=== PATIENT | female | born 1990 | race Caucasian/White ===

== ENCOUNTER 2016-07-07 13:09 | Outpatient (CLI) | payer MEDICAID ==
[~2016-07-07] VITALS: Ht 149.9 cm; Wt 69.8 kg
[2016-07-07 13:30] VITALS: Ht 149.9 cm; Wt 69.8 kg
[2016-07-07] MEDS ORDERED: PRENAT PO (13:30)
[2016-07-07] MEDS ORDERED: FER325 PO (13:30)
[2016-07-07] MEDS ORDERED: FOLI-49 PO (13:30)
[2016-07-07 13:31] VITALS: BP 118/60; PULSE 94; RESP 18
--- NOTE | 2016-07-07 14:05 | RADRPT ---
PROCEDURE: US OB. CLINICAL INDICATION: Decreased movements TECHNIQUE: Transabdominal views of the pelvis are available for review. COMPARISON: None. FINDINGS: There is a single intrauterine gestation in a vertex position. The heart rate is present at 146 bpm. The placenta is posterior. There is no evidence of placenta previa or a placental abruption. The MURRAY measures 16.2 cm. RPTAT: AA IMPRESSION: Normal MURRAY of 16.2 cm. Physician Noel Date Time Electronically viewed and signed by Jovan Avila Physician on 07/07/2016 14:05 /
--- NOTE | 2016-07-07 15:14 | RADRPT ---
PROCEDURE: US OB biophysical profile. CLINICAL INDICATION: decreased movements TECHNIQUE: Multiple sonographic images of the pelvis were obtained. The images were reviewed on a PACS workstation. COMPARISON: Same day FINDINGS: There is a single viable intrauterine gestation. Cardiac activity is present with 150 beats per min warren. There is a vertex presentation. The placenta is posterior. There is no evidence of placental abruption. There is a normal amount of amniotic fluid with an MURRAY = 16.3 cm. Biophysical profile: movement 2/2 tone 2/2. breathing 2/2 MURRAY 2/2 Total 01/24 RPTAT: AA . IMPRESSION: Normal biophysical profile. . .Herb Castro MD, MD Date Time Electronically viewed and signed by .Herb Castro MD, MD on 07/07/2016 15:14 .S/
--- NOTE | 2016-07-07 16:54 | TRIAGE ---
OB Triage Datetime Report Generated by CPN: 07/07/2016 16:53 Datetime: 07/07/2016 16:00 Stage of : OB Triage Maternal Assessment Level of Consciousness: Fully Conscious Labor Evaluation Frequency: 1-6 Monitor Mode: External Duration (sec)2399: 60-180 Quality: Mild Resting Tone Fancy Gap: Relaxed Heart Rate FHR Baseline Rate: 135 Monitor Mode: External US Variability: Moderate 6-25 bpm Accelerations: 15X15 Decelerations: None Pain Assessment Pain Scale: 0 Pain Presence: None/Denies Pain Goal: 3 Membrane Status: Intact Vaginal Bleeding: None Datetime: 07/07/2016 15:30 Stage of : OB Triage Maternal Assessment Level of Consciousness: Fully Conscious Labor Evaluation Frequency: 1-6 Monitor Mode: External Duration (sec)2399: 50-120 Quality: Mild Resting Tone Fancy Gap: Relaxed Heart Rate FHR Baseline Rate: 145 Monitor Mode: External US Variability: Moderate 6-25 bpm Accelerations: 15X15 Decelerations: None Pain Assessment Pain Scale: 0 Pain Presence: None/Denies Pain Goal: 3 Membrane Status: Intact Vaginal Bleeding: None Datetime: 07/07/2016 15:00 Stage of : OB Triage Maternal Assessment Level of Consciousness: Fully Conscious Labor Evaluation Frequency: 1-3 Monitor Mode: External Duration (sec)2399: 50-120 Quality: Mild Resting Tone Fancy Gap: Relaxed Heart Rate FHR Baseline Rate: 145 Monitor Mode: External US Variability: Moderate 6-25 bpm Accelerations: 15X15 Decelerations: None Pain Assessment Pain Scale: 0 Pain Presence: None/Denies Pain Goal: 3 Membrane Status: Intact Vaginal Bleeding: None Datetime: 07/07/2016 14:30 Stage of : OB Triage Maternal Assessment Level of Consciousness: Fully Conscious Labor Evaluation Frequency: 1-8 Monitor Mode: External Duration (sec)2399: 50-120 Quality: Mild Resting Tone Fancy Gap: Relaxed Heart Rate FHR Baseline Rate: 145 Monitor Mode: External US Variability: Moderate 6-25 bpm Accelerations: 15X15 Decelerations: None Pain Assessment Pain Scale: 0 Pain Presence: None/Denies Pain Goal: 3 Membrane Status: Intact Vaginal Bleeding: None Datetime: 07/07/2016 14:08 Vaginal Exam Dilatation (cms): 1.0 Effacement (%): 80 Station: -2 Exam By: essie Vaginal Bleeding: None Cervix, Consistency: Soft Cervix, Position: Midposition Presentation 'A': Cephalic Datetime: 07/07/2016 14:00 Stage of : OB Triage Maternal Assessment Level of Consciousness: Fully Conscious Labor Evaluation Frequency: 2-4 Monitor Mode: External Quality: Mild Resting Tone Fancy Gap: Relaxed Heart Rate FHR Baseline Rate: 145 Monitor Mode: External US Variability: Moderate 6-25 bpm Accelerations: 15X15 Decelerations: None Pain Assessment Pain Scale: 0 Pain Presence: None/Denies Pain Goal: 3 Membrane Status: Intact Vaginal Bleeding: None Datetime: 07/07/2016 13:28 Assessment Type: Triage Maternal Assessment Level of Consciousness: Fully Conscious DTR's/Clonus: DTRs 2+; No Clonus Headache: Denies Blurred Vision: No Respiratory Effort: Unlabored; Regular Rhythm; Equal Expansion Breath Sounds, Left: Clear and Equal Breath Sounds, Right: Clear and Equal Nausea/Vomiting: Denies RUQ Epigastric Pain: Denies Lower Extremities Edema: None Degree: None Upper Extremities Edema: None Degree: None Facial Edema: None Fall Risk Assessment History of Falling: (0) No Secondary Diagnosis: (0) No Ambulatory Aid: (0) Bedrest/Nurse Assist IV Therapy: (0) No Gait: (0) Normal/Bedrest/Immobile Mental Status: (0) Oriented to Own Ability Fall Score: 0 Fall Risk Score Definition: No Risk: No action required Datetime: 07/07/2016 13:27 Time of Arrival: 07/07/2016 12:58 EGA: 37.1 Arrived By: Ambulatory Arrived From: Dr. Overton Chief Complaint: pt sent in for eval of DFM Movement: Decreased Contractions: Denies/Absent Rupture of Membranes: Denies Vaginal Bleeding: None Vaginal Discharge: Denies Recent Sexual Intercouse: Denies Abdominal Trauma: Not Applicable Patient Complaints: None Time Provider Notified: 07/07/2016 12:58 Provider Notified: LALITO Initial Plan: NST/BPP/EDDY
== END 2016-07-07 17:00 | disposition home or self-care (01) ==
LOC: OBT 13:09 → L-D 13:10 → OBT 17:00
PROVIDERS: ATTEND Obstetrics & Gynecology
DX: O36.8130 Decreased fetal movements, third trimester, not applicable or unspecified (principal); Z3A.37 37 weeks gestation of pregnancy
CPT/HCPCS: 76815; 76818; G0463

== ENCOUNTER 2016-07-17 17:34 | Emergency (ER) | payer MEDICAID ==
[~2016-07-17] VITALS: Wt 80.0 kg
[~2016-07-17 17:34] MED LIST: FER325 PO; FOLI-49 PO; PRENAT PO
== END 2016-07-17 19:46 | disposition left against medical advice (07) ==
LOC: E/R 17:34
DX: Z53.21 Procedure and treatment not carried out due to patient leaving prior to being seen by health care provider (principal)

== ENCOUNTER 2016-07-17 19:09 | Inpatient (IN) | payer MEDICAID ==
[~2016-07-17] VITALS: Ht 149.9 cm; Wt 66.4 kg
[2016-07-17 19:23] VITALS: BMI 31.2
--- NOTE | 2016-07-17 20:50 | RADRPT ---
PROCEDURE: US OB. CLINICAL INDICATION: labor at 38 weeks. TECHNIQUE: Multiple sonographic images of the uterus were obtained. The images were revi ewed on a PACS workstation. COMPARISON: No prior studies are available for comparison. FINDINGS: There is a single live intrauterine gestation. heart rate is 154 beats per minute. Measurements were made in order to determine age. The results are as follows: BPD = 9.29 cm. HC = 33.70 cm. AC = 39.62 cm. FL = 7.22 cm. Estimated weight is 4283 +/- 642 grams. LMP growth percentile is greater than 97%. Menstrual age by ultrasound dates is 37 weeks 5 days. The estimated date of delivery is 08/02/2016. Position is cephalic and placenta is fundal grade II. There is no evidence for an abruption or place nta previa. IMPRESSION: 1. Single live intrauterine gestation of 37 weeks 5 days menstrual age by ultrasound dates. 2. The estimated date of delivery is 08/02/2016. RPTAT: QQ .Crow Perez MD, Date Time Electronically viewed and signed by .Crow Perez MD, on 07/17/2016 20:50 .R/
--- NOTE | 2016-07-17 20:51 | RADRPT ---
PROCEDURE: US biophysical profile. CLINICAL INDICATION: labor at 38 weeks. TECHNIQUE: Multiple sonographic images of the uterus were obtained. The images were revi ewed on a PACS workstation. COMPARISON: No prior studies are available for comparison. FINDINGS: There is a single live intrauterine gestation. heart rate is 132 beats per minute. The position is cephalic. The placenta is fundal grade II with no abruption or previa. The MURRAY is 14.7 cm. (Normal = 5-20 cm.) Breathing Movement: 2 Gross Body Movement: 2 Tone: 2 Qualitative Amniotic Fluid Volume: 2 TOTAL: 8 IMPRESSION: 1. The biophysical score is 8/8. RPTAT: QQ .Crow Perez MD, MD Date Time Electronically viewed and signed by .Crow Perez MD, on 07/17/2016 20:51 .R/
[2016-07-17 22:00] LABS: BASOPHILS % 0.4 % (0.0-2.0); EOSINOPHILS # 0.1 10^3/ul (0.0-0.5); EOSINOPHILS % 1.4 % (0.0-7.0); HEMATOCRIT 36.4 % (37.0-47.0); HEMOGLOBIN 12.9 g/dl (12.0-16.0); LYMPHOCYTES # 2.1 10^3/ul (0.8-2.9); LYMPHOCYTES % 22.7 % (15.0-51.0); MEAN CORPUSCULAR HEMOGLOBIN 32.3 pg (29.0-33.0); MEAN CORPUSCULAR HGB CONC 35.3 g/dl (32.0-37.0); MEAN CORPUSCULAR VOLUME 91.4 fl (82.0-101.0); MEAN PLATELET VOLUME 8.3 fl (7.4-10.4); MONOCYTE # 0.8 10^3/ul (0.3-0.9); MONOCYTES % 8.1 % (0.0-11.0); NEUTROPHIL # 6.4 10^3/ul (1.6-7.5); NEUTROPHILS % 67.4 % (39.0-77.0); PLATELET COUNT 221 10^3/UL (140-440); RED BLOOD COUNT 3.98 10^6/ul (4.20-5.40); RED CELL DISTRIBUTION WIDTH 13.2 % (11.5-14.5); UNCORRECTED WBC 9.4 10^3/ul (4.8-10.8); WHITE BLOOD COUNT 9.4 10^3/ul (4.8-10.8)
[2016-07-17 22:03] LABS: INR 0.9; PROTIME 12.1 Sec (12.2-14.2); PT RATIO 0.9
[2016-07-17 22:04] LABS: PARTIAL THROMBOPLASTIN TIME 28.5 Sec (25.0-35.0)
[2016-07-17 22:06] LABS: ADD UMIC YES; URINE BILIRUBIN (Dip) NEGATIVE (NEGATIVE); URINE BLOOD (Dip) NEGATIVE (NEGATIVE); URINE COLOR LT. YELLOW (YELLOW); URINE GLUCOSE (Dip) NEGATIVE (NEGATIVE); URINE KETONES (Dip) NEGATIVE (NEGATIVE); URINE LEUKOCYTE ESTERASE (Dip) 1+ (NEGATIVE); URINE NITRITE (Dip) NEGATIVE (NEGATIVE); URINE TOTAL PROTEIN (Dip) NEGATIVE (NEGATIVE); URINE UROBILINOGEN (Dip) 0.2 E.U./dL (0.1-1.0)
[2016-07-17 22:07] LABS: ALBUMIN 3.4 g/dl (3.3-4.9)
[2016-07-17 22:10] LABS: ALBUMIN/GLOBULIN RATIO 1.17; BILIRUBIN,INDIRECT 0.1 mg/dl (0-1.1); BILIRUBIN,TOTAL 0.1 mg/dl (0.2-1.3); CONDITION 1; CREATININE 0.58 mg/dl (0.44-1.00); TOTAL PROTEIN 6.3 g/dl (6.1-8.1)
[2016-07-17 22:11] LABS: CALCIUM 9.4 mg/dl (8.4-10.2); URIC ACID 6.1 mg/dl (3.1-7.9)
[2016-07-17 22:18] LABS: BACTERIA,URINE FEW; SQUAMOUS EPITHELIAL CELL,UR MODERATE; URINE RBCS 0-2 /HPF (0)
[2016-07-17] MEDS ORDERED: OXYTOCIN 30 UNITS/LR 500 ML IV SCH ×2 (23:00)
[2016-07-17] MEDS ORDERED: METHYLERGONOVINE 0.2 MG INJ IM PRN (23:00)
[2016-07-17] MEDS ORDERED: OXYTOCIN 30 UNITS/LR 500 ML IV PRN (23:00)
[2016-07-17] MEDS ORDERED: LIDOCAINE 1% (MPF) 30 ML INJ INJ PRN (23:00)
[2016-07-17] MEDS ORDERED: MISOPROSTOL 200 MCG TAB PR PRN (23:00)
[2016-07-17] MEDS ORDERED: BUTORPHANOL 2 MG INJ IV PRN (23:00)
[2016-07-17] MEDS ORDERED: CARBOPROST 250 MCG INJ IM PRN (23:00)
[2016-07-17] MEDS ORDERED: AMPICILLIN 2 GM/NS (PMX) 100 ML ONE (23:35)
[2016-07-17] MEDS: LACTATED RINGER'S 1,000 ML IV SCH (23:38)
[2016-07-18] VITALS (8 sets, daily range): BP systolic 113–133; BP diastolic 54–77; PULSE 70–100; RESP 18
[2016-07-18] MEDS ORDERED: AMPICILLIN 2 GM/NS (PMX) 100 ML IVPB ONE
[2016-07-18] MEDS: AMPICILLIN 1 GM/NS (PMX) 50 ML IVPB SCH ×2 (04:40→08:41)
[2016-07-18] MEDS ORDERED: OXYTOCIN 30 UNITS/LR 500 ML BAG IV ONE (07:00)
[2016-07-18] MEDS: LACTATED RINGER'S 1,000 ML IV SCH ×3 (08:41→14:53)
[2016-07-18] MEDS ORDERED: LACTATED RINGER'S 1,000 ML IV PRN (10:00)
[2016-07-18] MEDS ORDERED: CEFAZOLIN 2 GM/50 ML (PMX) 50 ML IVPB ONE ×2 (10:06→10:30)
[2016-07-18] MEDS ORDERED: ONDANSETRON 4 MG INJ ONE (10:35)
[2016-07-18] MEDS ORDERED: PHENYLephrine (100 MCG/ML) 5ML SYG ONE (10:35)
[2016-07-18] MEDS ORDERED: morphine SULFATE/PF (10 MG/10 ML) INJ ONE (10:35)
[2016-07-18] MEDS ORDERED: OXYTOCIN 10 UNIT INJ ONE (10:35)
--- NOTE | 2016-07-18 11:12 | PREOPHP ---
DATE OF ADMISSION: 07/17/2016 HISTORY OF PRESENT ILLNESS: This is a 25-year-old 1, para 0, EDC on 01/2017, intrauterine at 38 weeks and 4 days gestational age, presented to triage late last night complaining of numbness in her legs and arms for the past week with decreased movement. She had a biophysical profile which was 8/8. However, she had one episode of elevated blood pressure of 140s/90s with elevated uric acid. She was admitted for observation and a 24- hour urine collection. Recently the heart tracing was in the 170s where delivery was recommended, however, because patient feels the baby is too big for her with an estimated weight of more than 4000 grams the patient desires an elective delivery versus induction. Her care took place in at [facility]. MEDICAL HISTORY: None. MEDICATIONS: vitamins. PAST SURGICAL HISTORY: None. OBSTETRIC HISTORY: Primigravid. GYNECOLOGIC HISTORY: 14, regular 3 to 4 days. Denies any sexually transmitted disease. Sexually active with 1 partner. SOCIAL HISTORY: Denies any smoking, drugs or alcohol. FAMILY HISTORY: None. PHYSICAL EXAMINATION: HEENT: Within normal. LUNGS: CTA bilateral. CARDIOVASCULAR: S1, S2, regular rhythm. ABDOMEN: Gravid, nontender. EXTREMITIES: plus 2 edema in legs, No calf tenderness. PELVIC: Vaginal exam 170 -2. heart tracing in the 170s/category 2. ASSESSMENT: A 25-year-old 1, para 0, intrauterine at 38 weeks and 4 days gestational age with category 2 tracing, desires elective delivery. PLAN: Consent for a primary . Risks, benefits and alternatives explained. All questions were answered. Dictated By: NAVYA YADAV/BEE Conf#: [id number] DID#: [id number] EMMANUELLE
[2016-07-18] MEDS ORDERED: OXYTOCIN 30 UNITS/LR 500 ML IV PRN (11:30)
[2016-07-18] MEDS ORDERED: METHYLERGONOVINE 0.2 MG INJ IM PRN (11:30)
[2016-07-18] MEDS ORDERED: OXYCODONE/ACETAMINOPHEN (5/325) TAB PO PRN (11:30)
[2016-07-18] MEDS ORDERED: CARBOPROST 250 MCG INJ IM PRN (11:30)
[2016-07-18] MEDS ORDERED: MISOPROSTOL 200 MCG TAB PR PRN (11:30)
[2016-07-18 11:36] LABS: CBV Base Excess -0.1 mmol/L; CBV COHb 0.6 %; CBV Total Hemglobin 16.7 g/dl; Cord Blood Venous AADO2 67.5 mmHg; Fraction OxyHgb Cord Venous 33.3 %; MODE ROOM AIR; MetHgb Cord Venous 1.5 %; Sample Type CBV
[2016-07-18 11:37] LABS: AADO2 Cord Arterial 63.8 mmHg; Arterial Cord Blood pCO2 62.6 mmHG (25-50); CBA Base Excess -0.7 mmol/L; CBA Total Hemglobin 15.9 g/dl; Fraction OxyHgb Cord Arterial 13.1 %; MODE ROOM AIR; MetHgb Cord Arterial 1.9 %; Sample Type CBA
[2016-07-18] MEDS: IBUPROFEN 600 MG TAB PO SCH ×2 (12:00→18:00)
[2016-07-18 13:18] LABS: BASOPHILS % 0.3 % (0.0-2.0); EOSINOPHILS # 0.1 10^3/ul (0.0-0.5); EOSINOPHILS % 0.6 % (0.0-7.0); HEMATOCRIT 43.5 % (37.0-47.0); HEMOGLOBIN 15.1 g/dl (12.0-16.0); LYMPHOCYTES % 15.7 % (15.0-51.0); MEAN CORPUSCULAR HEMOGLOBIN 32.6 pg (29.0-33.0); MEAN CORPUSCULAR HGB CONC 34.6 g/dl (32.0-37.0); MEAN CORPUSCULAR VOLUME 94.2 fl (82.0-101.0); MEAN PLATELET VOLUME 8.4 fl (7.4-10.4); MONOCYTE # 0.6 10^3/ul (0.3-0.9); MONOCYTES % 4.9 % (0.0-11.0); NEUTROPHIL # 10.3 10^3/ul (1.6-7.5); NEUTROPHILS % 78.5 % (39.0-77.0); PLATELET COUNT 222 10^3/UL (140-440); RED BLOOD COUNT 4.62 10^6/ul (4.20-5.40); RED CELL DISTRIBUTION WIDTH 13.1 % (11.5-14.5); UNCORRECTED WBC 13.1 10^3/ul (4.8-10.8); WHITE BLOOD COUNT 13.1 10^3/ul (4.8-10.8)
[2016-07-18 13:19] LABS: CONDITION 1
[2016-07-18] MEDS ORDERED: DIPHENHYDRAMINE 50 MG INJ IV PRN (15:30)
[2016-07-18] MEDS ORDERED: ONDANSETRON 4 MG INJ IV PRN (15:30)
[2016-07-18] MEDS ORDERED: morphine 2 MG INJ IV PRN (15:30)
[2016-07-18] MEDS ORDERED: NALOXONE (0.4 MG/ML) INJ IV PRN (15:30)
[2016-07-18] MEDS ORDERED: KETOROLAC 30 MG INJ IV PRN (15:30)
--- NOTE | 2016-07-18 16:18 | OPR ---
DATE OF OPERATION: 07/18/2016 PREOPERATIVE DIAGNOSIS: A 25-year-old 1, para 0, intrauterine at 38 weeks and 5 d ays gestational age with category 2 tracing, desires elective delivery. POSTOPERATIVE DIAGNOSIS: A 25-year-old 1, para 0, intrauterine at 38 weeks and 5 days gestational age with category 2 tracing, desires elective delivery. PROCEDURE: Primary low transverse delivery. SURGEON: NAVYA JACOB MD. CANARY BREEDER: MONIKA RIZO MD. ANESTHESIA: Spinal. COMPLICATIONS OF PROCEDURE: None. ESTIMATED BLOOD LOSS: 500 mL. FINDINGS: A viable male, 8 and 9 respectively at 1 and 5 minutes, weight 8 pounds 15 ounces. She had normal uterus, tubes and ovaries. DESCRIPTION OF PROCEDURE: Patient was taken to the operating room where spinal anesthesia was found to be adequate. She was then prepared and draped in normal sterile fashion in the dorsal supine po sition with a leftward tilt. A Pfannenstiel skin incision was then made with a scalpel and carried to the underlying layer of fascia. Fascia was incised in the midline and the incision was extended laterally with Day scissors. The superior aspect of the fascial incision was grasped with curved c lamps, elevated and the underlying rectus muscles dissected off bluntly. Attention was then turned to the inferior aspect of the incision which in similar fashion was grasped, tented up with curved c lamps and the rectus muscles dissected off bluntly. The rectus muscles were in midline, p eritoneum identified, tented up and entered sharply with Metzenbaum scissors. This incision was ext ended laterally and a bladder flap created digitally. The bladder blade was then inserted and the v esicouterine peritoneum identified, grasped with pickups and entered sharply with Metzenbaum scissor s. This incision was extended laterally and the bladder flap created digitally. The bladder blade was then reinserted and the lower segment incised in transverse fashion with a scalpel. The uterine incision was extended laterally. The bladder blade was removed and the 's head delivered atr aumatically. The nose and mouth were suctioned and cord clamped and cut. The infant was handed off to awaiting vocational trainer. The placenta was then removed. The uterus cleared of all clots and debr is. The uterine incision was repaired with 1-0 chromic in a running locked fashion. A second layer of same suture was used for imbrication obtaining excellent hemostasis. The uterus was returned to the abdomen. The gutters were cleared of all clots. The peritoneum and rectus abdominis muscles w ere reapproximated with 3-0 Vicryl in interrupted fashion. The fascia was reapproximated with 0 Vijay ryl in a running fashion. The skin was closed with lilliam. The patient tolerated procedure well. Sponge, lap and needle counts correct x2. The patient was taken to recovery room in stable conditi on. Dictated By: NAVYA YADAV/BEE Conf#: [id number] DID#: [id number]
[2016-07-18 20:28] LABS: SCRET 0.58 mg/dl (0.44-1.00)
[2016-07-19] VITALS: BP 117/58; PULSE 95; RESP 18
[2016-07-19] MEDS: LACTATED RINGER'S 1,000 ML IV SCH ×3 (00:35→19:25)
[2016-07-19 04:05] VITALS: BP 115/56; PULSE 95; RESP 18
[2016-07-19] MEDS: IBUPROFEN 600 MG TAB PO SCH ×5 (06:00→23:43)
--- NOTE | 2016-07-19 07:17 | QN ---
Documentation Comment patient seen and evaluated no complaints patient reports extremity numbness has improved since the CD vs stable afebrile lungs cta b/l cvs positive S1S2 rrr abdomen dressing clean no distent, nt, extremity +1 pitting edema b/l no calf tenderss a/ s/p primary cd pod 1 stable afebrile extremity numbness improved p/ repeat cbc in am NAVYA JACOB MD Jul 19, 2016 07:17
[2016-07-19 07:30] VITALS: BP 111/53; PULSE 84; RESP 18
[2016-07-19 08:27] LABS: BASOPHILS % 0.2 % (0.0-2.0); EOSINOPHILS # 0.1 10^3/ul (0.0-0.5); EOSINOPHILS % 0.7 % (0.0-7.0); HEMATOCRIT 30.5 % (37.0-47.0); HEMOGLOBIN 10.6 g/dl (12.0-16.0); LYMPHOCYTES # 2.5 10^3/ul (0.8-2.9); LYMPHOCYTES % 22.9 % (15.0-51.0); MEAN CORPUSCULAR HEMOGLOBIN 32.8 pg (29.0-33.0); MEAN CORPUSCULAR HGB CONC 34.7 g/dl (32.0-37.0); MEAN CORPUSCULAR VOLUME 94.8 fl (82.0-101.0); MEAN PLATELET VOLUME 7.7 fl (7.4-10.4); MONOCYTE # 0.8 10^3/ul (0.3-0.9); MONOCYTES % 7.6 % (0.0-11.0); NEUTROPHIL # 7.6 10^3/ul (1.6-7.5); NEUTROPHILS % 68.6 % (39.0-77.0); PLATELET COUNT 178 10^3/UL (140-440); RED BLOOD COUNT 3.22 10^6/ul (4.20-5.40); RED CELL DISTRIBUTION WIDTH 13.1 % (11.5-14.5); UNCORRECTED WBC 11.1 10^3/ul (4.8-10.8); WHITE BLOOD COUNT 11.1 10^3/ul (4.8-10.8)
[2016-07-19 08:50] LABS: CONDITION 1
[2016-07-19 12:00] VITALS: BP 114/67; PULSE 78; RESP 18
[2016-07-19 16:00] VITALS: BP 122/56; PULSE 73; RESP 18
[2016-07-19 20:00] VITALS: BP 105/56; PULSE 87; RESP 20
[2016-07-19] MEDS: OXYCODONE/ACETAMINOPHEN (5/325) TAB PO PRN (20:03)
[2016-07-19] MEDS: FERROUS SULFATE (EC) 325 MG TAB PO SCH (21:25)
[2016-07-20] MEDS: OXYCODONE/ACETAMINOPHEN (5/325) TAB PO PRN ×2 (01:46→08:32)
[2016-07-20] MEDS: LACTATED RINGER'S 1,000 ML IV SCH ×2 (03:25→11:25)
[2016-07-20 04:34] VITALS: BP 110/65; PULSE 77; RESP 20
[2016-07-20] MEDS: IBUPROFEN 600 MG TAB PO SCH ×4 (05:21→23:23)
[2016-07-20 07:30] VITALS: BP 109/60; PULSE 88; RESP 19
[2016-07-20 07:42] LABS: BASOPHILS % 0.4 % (0.0-2.0); EOSINOPHILS # 0.2 10^3/ul (0.0-0.5); EOSINOPHILS % 2.1 % (0.0-7.0); HEMATOCRIT 28.6 % (37.0-47.0); LYMPHOCYTES # 2.8 10^3/ul (0.8-2.9); LYMPHOCYTES % 27.9 % (15.0-51.0); MEAN CORPUSCULAR HEMOGLOBIN 33.2 pg (29.0-33.0); MEAN CORPUSCULAR HGB CONC 34.9 g/dl (32.0-37.0); MEAN PLATELET VOLUME 7.7 fl (7.4-10.4); MONOCYTE # 0.9 10^3/ul (0.3-0.9); MONOCYTES % 8.9 % (0.0-11.0); NEUTROPHILS % 60.7 % (39.0-77.0); PLATELET COUNT 184 10^3/UL (140-440); RED BLOOD COUNT 3.01 10^6/ul (4.20-5.40); RED CELL DISTRIBUTION WIDTH 13.2 % (11.5-14.5)
--- NOTE | 2016-07-20 07:46 | QN ---
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
[2016-07-20 07:47] LABS: CONDITION 1
[2016-07-20] MEDS: FERROUS SULFATE (EC) 325 MG TAB PO SCH ×2 (08:31→21:58)
[2016-07-20 16:00] VITALS: BP 125/73; PULSE 78; RESP 19
[2016-07-20 19:45] VITALS: BP 131/67; PULSE 87; RESP 20
[2016-07-20] MEDS: LANOLIN 7 GM TUBE TOP PRN (23:23)
[2016-07-21 04:05] VITALS: BP 114/56; PULSE 80; RESP 19
[2016-07-21] MEDS: IBUPROFEN 600 MG TAB PO SCH ×3 (05:44→18:02)
[2016-07-21 08:00] VITALS: BP 136/59; PULSE 79; RESP 17
[2016-07-21] MEDS: FERROUS SULFATE (EC) 325 MG TAB PO SCH (08:29)
[2016-07-21 09:19] LABS: BASOPHIL # 0.1 10^3/ul (0.0-0.1); BASOPHILS % 0.5 % (0.0-2.0); EOSINOPHILS # 0.3 10^3/ul (0.0-0.5); EOSINOPHILS % 2.9 % (0.0-7.0); HEMATOCRIT 32.1 % (37.0-47.0); LYMPHOCYTES # 2.4 10^3/ul (0.8-2.9); MEAN CORPUSCULAR HEMOGLOBIN 32.6 pg (29.0-33.0); MEAN CORPUSCULAR HGB CONC 34.3 g/dl (32.0-37.0); MEAN CORPUSCULAR VOLUME 95.1 fl (82.0-101.0); MEAN PLATELET VOLUME 7.7 fl (7.4-10.4); MONOCYTE # 0.7 10^3/ul (0.3-0.9); MONOCYTES % 6.1 % (0.0-11.0); NEUTROPHIL # 7.8 10^3/ul (1.6-7.5); NEUTROPHILS % 69.5 % (39.0-77.0); PLATELET COUNT 247 10^3/UL (140-440); RED BLOOD COUNT 3.38 10^6/ul (4.20-5.40); RED CELL DISTRIBUTION WIDTH 13.1 % (11.5-14.5); UNCORRECTED WBC 11.3 10^3/ul (4.8-10.8); WHITE BLOOD COUNT 11.3 10^3/ul (4.8-10.8)
[2016-07-21 09:33] LABS: CONDITION 1
[2016-07-21 16:00] VITALS: BP 127/68; PULSE 81; RESP 17
--- NOTE | 2016-07-21 19:42 | CONS ---
Date/Time of Note Date/Time of Note DATE: 07/21/16 TIME: 19:39 Assessment Additional comments: Full neurological consult dictated. 3 weeks of worsening numbness and weakness Possible Cervical myelopathy, r/o MS MRI brain, C-T-spine with contrast May recommend to transfer to medical floor - med-surg PATRICIA CAMPO MD Jul 21, 2016 19:42
[2016-07-21 20:00] VITALS: BP 136/78; PULSE 84; RESP 20
--- NOTE | 2016-07-21 20:45 | QN ---
Documentation Comment ttending note POD 3 patient seen and evaluated patient has diffuculty ambulating to bathroom, patient needs assitant patient reports extremity numbness is same as yesterday positive void vs stable afebrile lungs cta b/l cvs positive S1S2 rrr abdomen dressing clean no distent, nt, extremity +1 pitting edema b/l no calf tenderss decrease range in motion in hand/feet a/ s/p primary cd pod 3 stable afebrile no significant change in extremity numbness p/ mri and ct scan per nuerology continue physical therapy NAVYA JACOB MD Jul 21, 2016 20:45
--- NOTE | 2016-07-21 22:17 | CONS ---
DATE OF ADMISSION: 07/17/2016 DATE OF CONSULTATION: 07/21/2016 TYPE OF CONSULTATION: Neurological. Thank you, Dr. Harper, for your kind referral for evaluation of weakness in upper and lower extremities. HISTORY OF PRESENT ILLNESS: The patient is a 25-year-old lady with essentially no past medical history, 38 weeks who delivered the day before yesterday through uneventful . Her is at bedside providing details of the history. She stated that about 3 weeks ago she started noticing pain in the neck as well as numbness and weakness in the hands, gradually worsening, and the weakness started involving lower extremities as well to the point that patient in the last week hardly able to ambulate by herself, only with assistance. She does have numbness in forelegs and feet. No complaints of bowel or bladder problems. No previous history of any unusual neurological problems. LABORATORIES: Today, WBC count 11, hemoglobin 11, hematocrit 32, platelets 247. Chemistry from day before yesterday essentially normal, alkaline phosphatase 221. Normal PT, PTT. Urinalysis: 1+ leukocyte esterase. PAST MEDICAL HISTORY: None. MEDICATIONS: Prior to admission none. Currently gettin. Iron. 2. Motrin. 3. Percocet p.r.n. ALLERGIES: NONE. SOCIAL HISTORY: No alcohol, tobacco, drug use. FAMILY HISTORY: Not contributory. REVIEW OF SYSTEMS: All pertinent positives included in the above history of present illness. PHYSICAL EXAMINATION: GENERAL: Today, patient is not in acute distress, sitting in the chair. VITAL SIGNS: Temperature 98.1, pulse 81, respirations 17, blood pressure 127/ 68. HEENT: Normocephalic, atraumatic head. NECK: No carotid bruits. No thyromegaly. LUNGS: Clear to auscultation. CARDIAC: Normal cardiac rhythm and sounds. ABDOMEN: Extended, status post delivery. EXTREMITIES: No cyanosis, clubbing or edema. NEUROLOGIC: She is awake, alert and oriented x3. Fluent speech. Her speaks better Stateless and interprets for her. Cranial nerve examination shows intact visual blackman bilaterally. Pupils round, reactive from 3 to 2 mm bilaterally. Extraocular movements intact without nystagmus. Symmetrical face. Preserved facial strength and sensation. Tongue is in midline. Palate elevates symmetrically. Motor strength examination seemed to be diminished but better when patient reassured and was prompted. Weakness in the hands about 3/5 , maybe 3+. Rest of upper extremities, I would say 4+/5. Lower extremities: Hip flexion 3+/5. Normal movements across the knee. Movements in the feet: 4 + probably plantar flexion and 3 dorsiflexion. The patient has diminished vibratory perception in bilateral hands and feet and pinprick also in glove- stocking distribution, getting better somewhere in the thigh level. DEEP TENDON REFLEXES: 2+ upper extremities, 3+ knee jerks, 2+ ankle jerks. Equivocal response to plantar stimulation. Coordination preserved on finger-to- finger testing. No dysmetria or tremor. GAIT: Attempted. She needs assistance to get up and unable to get up without assistance. IMPRESSION: Three weeks of worsening weakness and numbness in extremities with brisk reflexes and equivocal Babinski. The patient complains of lower neck pain as well as some back pain. Differential diagnosis includes myelopathy, possibly cervical. Guillain-Platteville syndrome is less likely even though that glove-stocking distribution of numbness more commonly seen with polyneuropathic changes, but her reflexes are preserved, and it's very unusual for Guillain- [place]atte[place] syndrome. Forgot to mention that she has no numbness on the trunk. Also , she denied any speech difficulties, swallowing difficulties or shortness of breath. No diplopia or headache. No vertigo. My plan is to obtain MRI of the neuraxis including MRI of the brain, cervical and thoracic spine with contrast to work up also possibility of more extensive disease such as possibly multiple sclerosis. Will not start any treatment right now given that patient has been stable in the hospital but will await results of the test before. Thank you very much for this interesting consultation. Dictated By: PATRICIA LAY/BEE Conf#: [id number] DID#: [id number] [employer]
--- NOTE | 2016-07-21 23:53 | RADRPT ---
PROCEDURE: MRI Brain with and without contrast. CLINICAL INDICATION: : Pain and numbness with myelopathic symptoms TECHNIQUE: An MRI of the brain was performed on a high-resolution hi-definition 3.0 Emily MRI scan ner utilizing the following sequences: Sagittal T1 weighted, axial T2 weighted, axial FLAIR, coronal GRE, and axial diffusion weighted with ADC mapping. Additionally, postcontrast axial and coronal T1 -weighted sequences and axial T1 SPGR volume fat saturation sequences were performed after 10 cc of Magnevist were given intravenously without complication. COMPARISON: None available FINDINGS: The visualized scalp and calvarium are normal. The orbits are normal. The paranasal sinuses, mastoid air cells and middle ear cavities are remarkable for a left maxillary sinus retention cysts. No high signal abnormalities are seen on the diffusion-weighted images to suggest the presence of ac warren ischemia or recent infarct. There is no evidence of intracranial hemorrhage, mass effect, or mi dline shift. No extra-axial fluid collections are seen. The signal intensity is normal throughout the cerebrum, brainstem and cerebellum with normal singh-white matter differentiation.. No hypointens e signal abnormalities are seen on the GRE images to suggest the presence of blood degradation produ cts. Normal flow voids are visible in the proximal intracranial arteries and dural sinuses, indicat ing patency. The postcontrast images show no abnormal parenchymal, leptomeningeal, or dural enhance ment. IMPRESSION: 1. No evidence of acute intracranial hemorrhage, infarcts or acute intracranial pathology. 2. Normal contrast brain MRI without evidence for abnormal enhancement. 3. Left maxillary sinus retention cyst. RPTAT: HDC .Ashlyn White MD, Date Time Electronically viewed and signed by .Ashlyn White MD, MD on 07/21/2016 23:53 .C/
[2016-07-22] VITALS (34 sets, daily range): BP systolic 109–167; BP diastolic 60–101; PULSE 64–112; RESP 15–25; Ht 149.9 cm; Wt 66.4 kg
--- NOTE | 2016-07-22 00:17 | RADRPT ---
AMENDMENT: 07/22/2016 12:23:27 AM Ashlyn White M.D. Addendum: Patient Name: ZITA JARQUIN Report Date: 22-Jul-2016 00:17.00 Patient Date: 1990 Report Status: S Accession No.: [id number] Reason for study: #reason_for_study# [place] [id number] Radiology Main Line: [phone] DIAGNOSTIC IMAGING REPORT Patient: MILKA AHUMADA : 1990 Age: 25 Sex: F MR #: [id number] DOS: 07/21/16 0000 Ordering MD: PATRICIA CAMPO MD Location: [facility] Room/Bed: [facility] PROCEDURE: MRI Cervical Spine. CLINICAL INDICATION: Pain and numbness with myelopathic symptoms TECHNIQUE: An MRI of the cervical spine was performed on a high-definition high-resolution MRI scanner utilizing the following sequences: Sagittal and axial T1 weighted, sagittal and axial T2 weighted, sagittal T2 weighted with fat saturation, sagittal T2 FLAIR, and sagittal and axial T1 postcontrast sequences. Patient was administered 10 cc of intravenous Magnevist contrast. COMPARISON: No prior studies are available for comparison. FINDINGS: There is straightening of the normal cervical lordosis. Preservation of vertebral body heights and intervertebral disk spaces are noted. The signal intensities of the vertebral bodies are normal. Mild disk desiccation is present from the C2-3 through C5-6 levels. Hyperintense biconvex lesion is noted in the posterior epidural space on T1-T2 and T2 fat saturation sequences. This is heterogeneous on T2 sequences and extends from the C4-5 through to the T2 axial images obtained. This is most compatible with an epidural hematoma. This measures approximately 8.3 cm in superior inferior dimensions by a maximum of 8 mm in AP dimensions and compresses the cord and displaces it anteriorly. The thickest portion of this fluid collection is in the left side of the spinal canal at the C7-T1 level. This surrounds the left anterior posterior portion of the spinal cord approximately 180 degrees and no definite abnormal cord signal is present. The visualized imaged portions of the paravertebral soft tissues of the neck are normal. Following contrast administration, peripheral enhancement of this hematoma is noted. Although epidural abscess may be a consideration this is less likely secondary to the hyperintense signal intensity on T1-weighted sequences and no other evidence of ancillary findings to suggest osteomyelitis or diskitis The specific axial levels are as follows: Skull base -C2: The anatomic relationships are normal without canal stenosis. C2-3: The intervertebral disc is desiccated without central canal, subarticular recess, or neural foraminal stenosis. C3-4: The intervertebral discs is desiccated with a mild annular bulge. The central canal, subarticular recess and neural foramen are patent. C4-5: The intervertebral discs is desiccated with a mild annular bulge. The posterior hyperintense epidural fluid collection is noted at this level. AP canal dimension at this level is 6.5 mm. The above findings contribute to a moderate central canal stenosis without subarticular recess or neural foraminal stenosis. C5-6: The intervertebral discs is desiccated with a mild annular bulge. At that dural hematoma is again noted which measures 5 mm in thickness and compresses the cord anteriorly. AP canal dimension is 4.9 mm compatible with severe central canal stenosis at this level. No associated subarticular recess stenosis or neural foraminal stenosis is present. C6-7: The intervertebral discs is normal with a mild annular bulge. The posterior epidural fluid collection is heterogeneous at this level neural and measures 7 mm in thickness. Cord is displaced anteriorly. The AP canal dimension is reduced to 4.3 mm with severe central canal stenosis and cord compression. No abnormal cord signal is noted. The bilateral subarticular recesses are patent. Mild amount of epidural hematoma extends into the left subarticular recess and the foraminal zone contributing to moderate left neural foraminal stenosis. The right neural foramen is patent. C7-T1: The intervertebral discs is normal. Mild annular bulge is present. The complex posterior epidural hemorrhage measures a thickness of 8 mm and encircles the cord along the left anterior through posterior portions of the canal. The cord is displaced anteriorly and the AP canal dimension is 4.3 mm. This contributes to a severe central canal stenosis. Epidural hemorrhage extends into the left neural foramen at this level which contributes to a moderate left neural foraminal stenosis. The right neural foramen is patent. T1-2: The intervertebral disk spaces normal. Posterior epidural hematoma is again noted at this level which measures 7.4 mm. AP canal dimension is 5.5 mm. Severe central canal stenosis is present. The bilateral subarticular recesses and neural foramen are patent. IMPRESSION: 1. Acute posterior epidural hematoma extending from the C4 through inferior most axial image evaluated at the T2 level measuring approximate dimensions of 8.3 cm superior inferiorly by a maximum of 8 mm anterior posteriorly. 2. Cord compression and severe central canal stenosis at the C4-5 through T2 levels without abnormal cord signal. 3. Straightening of the normal cervical lordosis. A call report was made to ALBER GOMEZ at 07/22/2016 at 11:40 PM following the completion of the examination by the undersigned. Clinical history provided at this time the patient is status post delivery and a patient. RPTAT: HDC .Ashlyn White MD, MD Date Time Electronically viewed and signed by .Ashlyn White MD, MD on 07/22/2016 00:17 .C/ CC: PATRICIA CAMPO MD Radiologist : .Ashlyn White MD, MD Date Time Electronically viewed and signed by .Ashlyn White MD, MD on 07/22/2016 00:23 .C/
--- NOTE | 2016-07-22 00:37 | CONS ---
Date/Time of Note Date/Time of Note DATE: 07/22/16 TIME: 00:31 Consultation Date/Type/Reason Admit Date/Time Jul 17, 2016 at 22:30 Type of Consultation: neurosurgery 25 yr female with weakness, > 1 week. MRI shows cervical and thoracic epidural hematoma. given subacute state, spinal angiogram may be indicated prior to tx. full consult to follow Social History Smoking Status: Never smoker Exam/Review of Systems Vital Signs Vitals Vital Signs Date Time Temp Pulse Resp B/P Pulse Ox O2 Delivery O2 Flow Rate FiO2 07/21/16 16:00 98.1 81 17 127/68 Room Air 07/19/16 04:05 96 Results Result Diagram: 07/21/16 0847 Results 24 hrs Laboratory Tests Test 07/21/16 08:47 Basophils # 0.1 Basophils % 0.5 Eosinophils # 0.3 Eosinophils % 2.9 Hematocrit 32.1 L Hemoglobin 11.0 L Lymphocytes # 2.4 Lymphocytes % 21.0 Mean Corpuscular Hemoglobin 32.6 Mean Corpuscular Hemoglobin Concent 34.3 Mean Corpuscular Volume 95.1 Mean Platelet Volume 7.7 Monocytes # 0.7 Monocytes % 6.1 Neutrophils # 7.8 H Neutrophils % 69.5 Nucleated Red Blood Cells # 0.0 Nucleated Red Blood Cells % 0.0 Platelet Count 247 # Red Blood Count 3.38 L Red Cell Distribution Width 13.1 White Blood Count 11.3 H Medications Medications Current Medications Oxycodone/ Acetaminophen (Percocet (5/ 325)) 1 tab Q4H PRN PO PAIN LEVEL 4-6; Start 07/18/16 at 11:30 Oxycodone/ Acetaminophen (Percocet (5/ 325)) 2 tab Q4H PRN PO PAIN LEVEL 7-10 Last administered on 07/20/16 08:32; Admin Dose 2 TAB; Start 07/18/16 at 11:30 Ibuprofen (Motrin) 600 mg Q6 PO Last administered on 07/21/16 18:02; Admin Dose 600 MG; Start 07/18/16 at 12:00 Simethicone 160 mg 160 mg Q8H PRN PO DISTENSION/GAS/BLOATING Last administered on 07/19/16 20:04; Admin Dose 160 MG; Start 07/18/16 at 11:30 Oxytocin/Lactated Ringer's 500 ml @ 0 mls/hr ONCE PRN IV For Hemorrhage Management; Start 07/18/16 at 11:30 Methylergonovine Maleate (Methergine) 0.2 mg ONCE PRN IM VAGINAL BLEEDING; Start 07/18/16 at 11:30 Carboprost Tromethamine (Hemabate) 250 mcg ONCE PRN IM VAGINAL BLEEDING; Start 07/18/16 at 11:30 Misoprostol (Cytotec) 1,000 mcg ONCE PRN [place] VAGINAL BLEEDING; Start 07/18/16 at 11:30 Ferrous Sulfate (Ferrous Sulfate (Ec)) 325 mg BID PO Last administered on 08:29; Admin Dose 325 MG; Start 07/19/16 at 21:00 KAVYA LYNN MD Jul 22, 2016 00:37
[2016-07-22] MEDS: FERROUS SULFATE (EC) 325 MG TAB PO SCH ×3 (00:39→21:29)
[2016-07-22] MEDS: IBUPROFEN 600 MG TAB PO SCH ×4 (00:39→18:41)
--- NOTE | 2016-07-22 00:41 | RADRPT ---
PROCEDURE: MRI thoracic spine without and contrast CLINICAL INDICATION: Pain and numbness with myelopathic symptoms. TECHNIQUE: An MRI of the thoracic spine was performed [facility] utilizing the following sequences: Sagittal and axial T1 weighted, sagittal and axial T2 weighted, and sagittal T2 FSE. Following intravenous 10 cc of Magnevist administration, sagittal and axial T1 postcontrast sequences are obtained. COMPARISON: Cervical spine MRI same date without prior thoracic spine imaging. FINDINGS: There is a normal kyphosis of the thoracic spine. Preservation of vertebral body heights and disk sp aces are noted. The signal intensities of the vertebral bodies and the intervertebral discs are nor mal. Within the posterior epidural space again noted is an epidural hematoma which is seen in the l ower cervical spine images and continues throughout the thoracic spine to the T12 level. The conus is noted to terminate at the L1 level. The epidural hematoma in the cervical spine extends from an anterior left position within the spinal canal to a posterolateral position and encircles the cord a pproximately 180 degrees. The cervical cord is displaced anteriorly and to the right. This epidura l hematoma measures a maximum thickness of 8 mm in the cervical spine. Within the thoracic spine at approximately the T5 level, the cord resumes its normal position within the spinal canal and contou r. However persistent epidural hematoman is noted to extend through the distal portion of the thoracic spine and measures 3-4 mm in maximum AP thickness. No evidence for abnormal cord signal or significant cord compression is noted from the T3 level infe riorly. No evidence for other thecal sac abnormalities are noted. The central canal, subarticular r ecess and neural foramen are patent below the T3-4 level. Following contrast administration, enhanc ement of the posterior pachymeningeal is an epidural hematoma is noted throughout the thoracic spine to the T12 L1 level. IMPRESSION: 1. Epidural hematoma extending from the posterior cervical epidural space throughout the posterior epidural space within the thoracic spine with maximum thickness in the thoracic spine of 3-4 mm. 2. Displacement of the cord anteriorly and to the right in the upper thoracic spine from T1 through T5 levels and resumes its normal configuration inferior to the T5 through termination at L1. 3. No abnormal cord signal present. A call report was made to ALBER GOMEZ at 07/21/2016 11:40 p.m. AM following the completion of the examination by the undersigned. RPTAT: HDC .Ashlyn White MD, MD Date Time Electronically viewed and signed by .Ashlyn White MD, MD on 07/22/2016 00:40 .C/
[2016-07-22] MEDS ORDERED: BACITRACIN/POLYMYXIN 28.35 GM OINT TOP ONE (08:30)
[2016-07-22] MEDS ORDERED: LIDOCAINE 1% (MDV) 20 ML INJ ONE (09:00)
[2016-07-22] MEDS ORDERED: FAMOTIDINE 20 MG INJ ONE (09:00)
[2016-07-22] MEDS ORDERED: DEXAMETHASONE 4 MG/ML 1 ML INJ ONE (09:00)
[2016-07-22] MEDS ORDERED: FENTAnyl 50 MCG/ML VIAL ONE (09:00)
[2016-07-22] MEDS ORDERED: LIDOCAINE 2% JELLY 5 ML ONE (09:00)
[2016-07-22] MEDS ORDERED: PROPOFOL 200 MG INJ ONE (09:00)
[2016-07-22] MEDS ORDERED: ONDANSETRON 4 MG INJ ONE (09:00)
[2016-07-22] MEDS ORDERED: HYDROmorphONE 2 MG/ML SYG ONE (09:00)
[2016-07-22] MEDS ORDERED: MIDAZOLAM 1 MG/ML 2 ML INJ ONE (09:00)
[2016-07-22] MEDS ORDERED: PHENYLephrine (100 MCG/ML) 5ML SYG ONE (09:00)
[2016-07-22] MEDS ORDERED: FENTAnyl 250MCG INJ ONE (09:00)
[2016-07-22] MEDS ORDERED: ESMOLOL 100 MG INJ ONE (09:00)
[2016-07-22] MEDS ORDERED: METOCLOPRAMIDE 10 MG INJ ONE (09:00)
[2016-07-22 09:36] LABS: BASOPHILS % 0.4 % (0.0-2.0); CONDITION 1; EOSINOPHILS # 0.2 10^3/ul (0.0-0.5); EOSINOPHILS % 2.5 % (0.0-7.0); HEMOGLOBIN 11.3 g/dl (12.0-16.0); LYMPHOCYTES # 1.3 10^3/ul (0.8-2.9); LYMPHOCYTES % 13.3 % (15.0-51.0); MEAN CORPUSCULAR HEMOGLOBIN 32.3 pg (29.0-33.0); MEAN CORPUSCULAR HGB CONC 34.1 g/dl (32.0-37.0); MEAN CORPUSCULAR VOLUME 94.8 fl (82.0-101.0); MEAN PLATELET VOLUME 7.1 fl (7.4-10.4); MONOCYTE # 0.5 10^3/ul (0.3-0.9); MONOCYTES % 4.9 % (0.0-11.0); NEUTROPHIL # 7.9 10^3/ul (1.6-7.5); NEUTROPHILS % 78.9 % (39.0-77.0); PLATELET COUNT 294 10^3/UL (140-440); RED BLOOD COUNT 3.48 10^6/ul (4.20-5.40); RED CELL DISTRIBUTION WIDTH 12.8 % (11.5-14.5)
[2016-07-22 09:44] LABS: ALBUMIN 2.9 g/dl (3.3-4.9)
[2016-07-22 09:45] LABS: POTASSIUM 4.1 mmol/L (3.5-5.1)
[2016-07-22 09:47] LABS: BILIRUBIN,INDIRECT 0.2 mg/dl (0-1.1); BILIRUBIN,TOTAL 0.2 mg/dl (0.2-1.3); CREATININE 0.48 mg/dl (0.44-1.00); TOTAL PROTEIN 5.8 g/dl (6.1-8.1)
[2016-07-22 09:48] LABS: CALCIUM 8.7 mg/dl (8.4-10.2)
[2016-07-22 09:50] LABS: INR 0.82; PROTIME 11.3 Sec (12.2-14.2); PT RATIO 0.9
[2016-07-22 09:51] LABS: PARTIAL THROMBOPLASTIN TIME 26.9 Sec (25.0-35.0)
--- NOTE | 2016-07-22 10:03 | CONS ---
DATE OF ADMISSION: 07/17/2016 DATE OF CONSULTATION: 07/22/2016 REQUESTING PHYSICIAN: Dr. Vipul Berg INDICATION FOR CONSULTATION: Epidural hematoma. HISTORY OF PRESENT ILLNESS: The patient is a 25-year-old female without a significant past medical history, who states that she began having severe neck pain about 3 weeks ago, as well as numbness and tingling in her arms and legs. She states that a week after, she had started to develop weakness and numbness in her arms and legs which continued to progress. Prior to coming to the hospital the patient states that she really could not walk, only with assistance. She denied any bowel or bladder incontinence in the past or currently. The patient was admitted and underwent a section 3 days ago. Postoperatively the patient was noted to have weakness and the patient states this was slightly worse after surgery, but was clearly present before. The patient did have a spinal epidural. Her operation was on the and she states that initially she was worse, though she feels she has slightly improved , but mostly simply with her neck pain. She denies any headache, nausea or vomiting. Again, she denies any bowel or bladder issues. She denies any history of easy bleeding or bruising. PAST MEDICAL HISTORY: day #4. Denies any history of hypertension, diabetes, or other medical issues. MEDICATIONS: 1. Percocet. 2. Motrin. 3. Iron. 4. She was not taking and preadmission medications. ALLERGIES: NO KNOWN DRUG ALLERGIES. SOCIAL HISTORY: Nonsmoker, nondrinker. Denies illicit drug use. FAMILY HISTORY: Denies any family history of easy bruising or bleeding. REVIEW OF SYSTEMS: A 12-point review of systems was performed. Pertinent positives and negatives as listed in the history of present illness and below. The patient denies any fevers or chills. Denies, obviously, any recent weight loss, other than the patient delivered through section without incident. All other systems are negative, except for those listed in the history of present illness. PHYSICAL EXAMINATION: VITAL SIGNS: Her temperature is 98.2, pulse 85, respirations 20, blood pressure 143/79. GENERAL: The patient is a well-developed, well-nourished female, lying in the hospital bed, in no acute distress. HEAD AND NECK: The patient is normocephalic, atraumatic. She has a slight Lhermitte's sign and has some tenderness, but this is below the thoracolumbar junction. She generally has no tenderness paraspinally on her neck. CARDIAC: Regular rate and rhythm. LUNGS: Clear to auscultation. VASCULAR: No carotid bruit bilaterally. 2+ radial and dorsalis pedis pulses. ABDOMEN: Nondistended. Status post delivery, with Steri-Strips in place. EXTREMITIES: No clubbing, cyanosis, or edema. NEUROLOGIC: The patient is awake, alert, and oriented x3. She speaks primarily Italian, but limited Luxembourgish, although a supervisor [employer] was used. The patient appears to have intact immediate, remote and recent memory. She has normal attention and concentration. Cranial nerves II through XII were serially tested and are intact, specifically II: Visual blackman full to confrontation and grossly normal visual acuity. III, IV, : Extraocular muscles intact. Pupils equal and reactive to light. No nystagmus. VII: Face symmetrical dynamically and statically. VIII: Grossly normal auditory acuity to finger rub and normal voice. IX: Symmetrical palate raise. XI: 5/5 sternocleidomastoid and shoulder shrug. XII: No tongue deviation when protruded. Her motor exam appears to be 5/5 in her deltoids, but her biceps appear to be 3/ 5 and wrist extensions 4-/5. Her oil and gas superintendent is also 4-/5. Proximally her iliopsoas and quadriceps appear to be 4+/5, but 4+/5 dorsiflexion and 3/5 dorsiflexion. She has diminished sensation to light touch and pinprick from above her xiphoid inferiorly. She has hyperreflexia with 3+ patella and 2+ ankle, with no clonus , Babinski, or Juan sign. She has no ataxia or dysmetria grossly with finger testing. The patient was able to sit up on her own power, though was extremely unsteady, and she was unable to actually stand without assistance. LABORATORIES: Her white count 11.3, hemoglobin 11, platelets 247. Coagulation profile on the was a PT of 12.1, INR of 0.98, PTT of 28.5, with a platelet function of 136. Sodium 139, BUN and creatinine 15 and 0.58. REVIEW OF RADIOGRAPHIC RESULTS: The patient had MRI of the brain, cervical and thoracic spines. I reviewed these studies, as well as the radiologist's results. I also discussed these results with the radiologist, Dr. Perez. The radiologist that interpreted the study, Dr. Lacey Langford stated on the brain there was no evidence of acute intracranial hemorrhage, infarcts or acute intracranial pathology. There is a normal contrast MRI, without evidence of enhancement and a left retention maxillary cyst. The patient's thoracic MRI showed an epidural hematoma extending to the posterior thoracic epidural space, throughout the posterior epidural space of the thoracic spine. The maximal thickness of the thoracic spine is 3 to 4 mm. It is displaced from the cord anteriorly to the right of the spine from T1 through T5 and the cord resumes normal configuration at T5 through termination at L1 and there is no abnormal cord signal present. This was interpretation of the thoracic spine. Cervical spine MRI was interpreted to show an acute posterior epidural hematoma extending from C4 through the most inferior image evaluated at T2, approximately 8.3, superior and inferiorly by maximal 8 mm anterior. There is cord compression, severe spinal stenosis of C4-5 through T2 levels, without abnormal cord signal, and straightening of the normal cervical lordosis. I reviewed this with Dr. Guzman and his thought was there are different blood ages, so this was likely an acute and/or subacute bleed, and I agree with this interpretation. Overall it appears to extend and cause compression from C4 to T4. ASSESSMENT AND PLAN: A 25-year-old female with quadriparesis secondary to a cervical/thoracic epidural hematoma. I discussed the patient's signs, symptoms , physical examination, and radiographic findings with her in detail. I discussed the nature of the pathology. The patient has been weak for a significant period of time, and although she appeared to have weakened over the past 48 hours, this has been progressive and she may have gotten a little weaker. I explained that given the patient's deficits, I would recommend ultimately surgical decompression. I explained there is no guarantee that this would improve the patient's symptoms, and even if it did, she may have persistent deficits; however, I do believe that given the persisting compression , the patient may benefit from this. I explained that the etiology is not clear. The patient does not appear to have a coagulopathy. She did have a spinal epidural placement, but the patient's symptoms and deficits clearly preceded this procedure. I discussed the possibility of a spinal AVM as the etiology for this bleed. I explained that this was a question of timing and that because the patient has not rapidly progressed, it may be reasonable to get a spinal angiogram prior to the operation. I actually discussed this with other neurosurgical colleagues, specifically because of the potential of transferring the patient to an institution that can perform a spinal angiogram, as that procedure cannot be performed at this institution. It was the consensus of the neurosurgeons present that it would be best that the patient be taken for decompression, rather than delay for spinal angiogram, despite the potential risks of the presence some type of AVM, which may make the surgery more risky or not be able to be treated at that time. I do believe this is a true logistical issues as well, in that due to the patient's insurance and difficulty in potentially transferring the patient, as well as the timing for obtaining an angiogram, this may unpredictably delay the operative intervention, a 24-hour period, which would likely be best to treat such a compression, even if it is subacute. Therefore, I recommend that the patient go the OR for decompression. I discussed the risks, benefits, and alternatives of surgical intervention with the patient in extensive detail with a supervisor [employer], including the risk of spinal fluid leak, infection, recurrent bleeding, neurologic worsening, delayed distant thoracolumbar kyphosis, persistent neck pain, persistent neurologic symptomatology, as well as the general risks of anesthesia, including deep vein thrombosis, pneumonia, cardiac arrhythmias, and . The patient expressed understanding of her clinical situation and agreed with surgical decompression. The patient will therefore be taken to the OR for cervical thoracic laminectomy and decompression of the epidural hematoma. The patient does not appear to have a coagulopathy and her PFTs was normal. Dictated By: KAVYA LYNN MD, LG/BEE Conf#: [id number] DID#: [id number] EMMANUELLE
[2016-07-22] MEDS ORDERED: PHENYLephrine 10 MG INJ IV ONE (11:00)
[2016-07-22] MEDS ORDERED: LIDOCAINE 0.5%/EPI (MDV) 50 ML INJ ONE (11:55)
[2016-07-22] MEDS ORDERED: GELATIN SIZE 100 SPONGE ONE ×2 (11:55→13:08)
[2016-07-22] MEDS ORDERED: POLYMYXIN/BACITRACIN 1L IRRIG ONE (11:56)
[2016-07-22] MEDS ORDERED: THROMBIN 5000 UNIT VIAL ONE ×2 (11:56→13:08)
[2016-07-22] MEDS ORDERED: SURGIFOAM POWDER 1 GM KIT ONE (13:08)
[2016-07-22] MEDS ORDERED: SODIUM CL BACTERIOSTATIC 30 ML INJ ONE (13:08)
[2016-07-22 13:16] LABS: AADO2 Arterial 211.5 mmHg (7.0-24.0); Arterial Base Excess -2.2 mmol/L (-3.0-3); Arterial COHb 0.2 % (0.0-3.0); Arterial Fraction of Oxyhgb 98.4 % (93.0-99.0); Arterial HCO3 21.9 mmol/L (22.0-26.0); Arterial MetHb 0.4 % (0.0-1.5); Arterial Total Hemglobin 10.3 g/dl (12.0-18.0); MODE SURGERY
[2016-07-22] MEDS ORDERED: DIPHENHYDRAMINE 50 MG CAP PO PRN (15:00)
[2016-07-22] MEDS ORDERED: CEPASTAT LOZENGE MT PRN (15:00)
[2016-07-22] MEDS ORDERED: ONDANSETRON 4 MG INJ IV PRN (15:00)
[2016-07-22] MEDS ORDERED: NALOXONE (0.4 MG/ML) INJ IV PRN (15:00)
[2016-07-22] MEDS ORDERED: DIAZEPAM 5 MG TAB PO PRN (15:00)
[2016-07-22] MEDS ORDERED: CEFAZOLIN 1 GM/50 ML (PMX) 50 ML IVPB SCH (15:00)
[2016-07-22] MEDS ORDERED: NACL 0.9% 3 ML SYG IV SCH (15:00)
--- NOTE | 2016-07-22 15:08 | OPPN ---
Date/Time of Note Date/Time of Note DATE: 07/22/16 TIME: 15:01 Operative/Procedure Note Pre-Operative Diagnosis 1. cervical-thoracic epidural hematoma Post-Operative Diagnosis 1. cervical-thoracic epidural hematoma Procedure 1. cervical laminenctomy C4-7 for evacuation of epidural hematoma 2. thoracic laminectomy T1-T4 for evacuation of epidural hematoma. 3. use of intraoperative microscope for microdissection. Surgeon: KAVYA LYNN MD Findings organized epidural hematoma with complex pseudomembran dorsal thoracic vascularity? malformation Implants/Grafts: Not applicable Estimated blood loss: other (800 ml) Drains subfascial drain Complications: None Anesthesia type: general KAVYA LYNN MD Jul 22, 2016 15:08
--- NOTE | 2016-07-22 15:30 | RADRPT ---
PROCEDURE: Intraoperative imaging of the cervical spine with fluoroscopy. CLINICAL INDICATION: Neck pain. Intraoperative. TECHNIQUE: 3 images of the cervical spine were obtained in the operating room with an image intens ifier. No radiologist was in attendance. 2.8 seconds of fluoroscopy time was used. COMPARISON: MRI dated 07/21/2016. FINDINGS: Images demonstrate posterior surgical instruments at the C4 spinous process level. IMPRESSION: 1. Intraoperative imaging of the cervical spine. RPTAT: QQ .Crow Perez MD, Date Time Electronically viewed and signed by .Crow Perez MD, on 07/22/2016 15:30 .R/
[2016-07-22] MEDS: CEFAZOLIN 1 GM/50 ML (PMX) 50 ML IVPB SCH ×2 (16:02→21:30)
[2016-07-22] MEDS: morphine 1 MG/ML 30 ML (PCA) IV SCH (16:07)
[2016-07-22] MEDS: DOCUSATE SODIUM 100 MG CAP PO SCH ×2 (17:53→21:29)
--- NOTE | 2016-07-22 18:22 | QN ---
Documentation Comment patient transferred to care to NAVYA Brian MD Jul 22, 2016 18:22
[2016-07-22] MEDS: DEXTROSE 5%-0.45% NACL 1,000 ML IV SCH (18:39)
[2016-07-23] VITALS (39 sets, daily range): BP systolic 100–164; BP diastolic 52–87; PULSE 64–109; RESP 5–26
[2016-07-23] MEDS: IBUPROFEN 600 MG TAB PO SCH ×4 (00:30→17:48)
[2016-07-23] MEDS: DEXTROSE 5%-0.45% NACL 1,000 ML IV SCH ×3 (00:56→15:09)
[2016-07-23] MEDS: morphine 1 MG/ML 30 ML (PCA) IV SCH ×3 (01:09→18:14)
[2016-07-23] MEDS: CEFAZOLIN 1 GM/50 ML (PMX) 50 ML IVPB SCH ×2 (04:08→09:17)
[2016-07-23 06:18] LABS: POTASSIUM 3.9 mmol/L (3.5-5.1)
[2016-07-23 06:21] LABS: CALCIUM 7.8 mg/dl (8.4-10.2); CREATININE 0.48 mg/dl (0.44-1.00)
[2016-07-23 06:24] LABS: HEMOGLOBIN 10.1 g/dl (12.0-16.0)
--- NOTE | 2016-07-23 07:40 | CONS ---
Date/Time of Note Date/Time of Note DATE: 07/23/16 TIME: 07:31 Assessment/Plan Assessment/Plan Additional Assessment/Plan 1. Cervical-thoracic epidural hematoma: s/p evacuation 2. Extremity weakness/numbness, 2/2 above 3. Anemia: likely 2/2 blood loss: monitor closely and transfuse as needed Further recommendation based on clinical course. Consultation Date/Type/Reason Admit Date/Time Jul 17, 2016 at 22:30 Hx of Present Illness The patient is a 25-year-old lady with essentially no past medical history, 38 weeks who delivered 3 days ago through uneventful and has been under OB service. She has been followed by Dr. Vipul martinez neurology for numbness and weakness. Three weeks ago, she started noticing pain in the neck as well as numbness and weakness in the hands, gradually worsening, and the weakness started involving lower extremities as well to the point that patient in the last week hardly able to ambulate by herself, only with assistance. She does have numbness in forelegs and feet. No complaints of bowel or bladder problems. No previous history of any unusual She was found to have cervical-thoracic epidural hematoma and underwent the following procedure by Dr. Avila. Consult was placed for medical mgmt 1. cervical laminenctomy C4-7 for evacuation of epidural hematoma 2. thoracic laminectomy T1-T4 for evacuation of epidural hematoma. 3. use of intraoperative microscope for microdissection. Social History Smoking Status: Never smoker Exam/Review of Systems Vital Signs Vitals Vital Signs Date Time Temp Pulse Resp B/P Pulse Ox O2 Delivery O2 Flow Rate FiO2 07/23/16 06:30 68 11 118/59 100 07/23/16 04:00 98.7 Nasal Cannula 2.0 Intake and Output 07/22/16 07/22/16 07/23/16 15:00 23:00 07:00 Intake Total 3050 ml 1110 ml 1250 ml Output Total 3120 ml 800 ml 765 ml Balance -70 ml 310 ml 485 ml Exam Constitutional: alert, oriented, well developed Head: atraumatic, normocephalic Eyes: EOMI, PERRL Respiratory: clear to auscultation, normal air movement Cardiovascular: nl pulses, regular rate and rhythm Gastrointestinal: soft, tender Neurological: other (weakness/numbess) Results Result Diagram: 07/23/16 0515 07/23/16 0515 Results 24 hrs Laboratory Tests Test 07/22/16 09:30 07/22/16 13:08 07/23/16 05:15 Activated Partial Thromboplast Time 26.9 Alanine Aminotransferase (ALT/SGPT) 50 Albumin 2.9 L Albumin/Globulin Ratio 1.00 Alkaline Phosphatase 186 H Anion Gap 15 14 Aspartate Amino Transf (AST/SGOT) 58 H Basophils # 0.0 Basophils % 0.4 Blood Morphology Comment Blood Urea Nitrogen 12 10 Calcium Level 8.7 7.8 L Carbon Dioxide Level 24 24 Chloride Level 106 103 Creatinine 0.48 0.48 Direct Bilirubin 0.00 Eosinophils # 0.2 Eosinophils % 2.5 Globulin 2.90 Glucose Level 96 116 Hematocrit 33.0 L 29.0 L Hemoglobin 11.3 L 10.1 L INR International Normalized Ratio 0.82 Indirect Bilirubin 0.2 Lymphocytes # 1.3 Lymphocytes % 13.3 L Mean Corpuscular Hemoglobin 32.3 Mean Corpuscular Hemoglobin Concent 34.1 Mean Corpuscular Volume 94.8 Mean Platelet Volume 7.1 L Monocytes # 0.5 Monocytes % 4.9 Neutrophils # 7.9 H Neutrophils % 78.9 H Nucleated Red Blood Cells # 0.0 Nucleated Red Blood Cells % 0.0 Platelet Count 294 Potassium Level 4.1 3.9 Prothrombin Time 11.3 L Prothrombin Time Ratio 0.9 Red Blood Count 3.48 L Red Cell Distribution Width 12.8 Sodium Level 141 137 Total Bilirubin 0.2 Total Protein 5.8 L White Blood Count 10.0 Arterial Blood HCO3 21.9 L Arterial Blood Base Excess -2.2 Arterial Blood Oxygen Saturation 99.0 H Carter Test N/A Arterial Blood Gas Puncture Site A-Line Arterial Blood Carboxyhemoglobin 0.2 Arterial Blood Date Drawn 07/22/2016 1:05:39 PM Arterial Blood Methemoglobin 0.4 Arterial Blood pCO2 (Temp correct) 35.0 Arterial Blood pH (Temp corrected) 7.415 Arterial Blood pO2 (Temp corrected) 466.5 H Blood Gas A-a O2 Differential 211.5 H Blood Gas Modality SURGERY Blood Gas Notified Time 07/22/2016 1:16:36 PM Blood Gas Notified Whom JLD Blood Gas Specimen Source Blood arterial Blood Gas Temperature 37.0 FiO2 100.0 Oxyhemoglobin Percent 98.4 Total Hemoglobin 10.3 L Medications Medications Current Medications Oxycodone/ Acetaminophen (Percocet (5/ 325)) 1 tab Q4H PRN PO PAIN LEVEL 4-6; Start 07/18/16 at 11:30 Oxycodone/ Acetaminophen (Percocet (5/ 325)) 2 tab Q4H PRN PO PAIN LEVEL 7-10 Last administered on 07/20/16 08:32; Admin Dose 2 TAB; Start 07/18/16 at 11:30 Ibuprofen (Motrin) 600 mg Q6 PO Last administered on 07/23/16 06:03; Admin Dose 600 MG; Start 07/18/16 at 12:00 Simethicone 160 mg 160 mg Q8H PRN PO DISTENSION/GAS/BLOATING Last administered on 07/19/16 20:04; Admin Dose 160 MG; Start 07/18/16 at 11:30 Oxytocin/Lactated Ringer's 500 ml @ 0 mls/hr ONCE PRN IV For Hemorrhage Management; Start 07/18/16 at 11:30 Methylergonovine Maleate (Methergine) 0.2 mg ONCE PRN [place] VAGINAL BLEEDING; Start 07/18/16 at 11:30 Carboprost Tromethamine (Hemabate) 250 mcg ONCE PRN [place] VAGINAL BLEEDING; Start 07/18/16 at 11:30 Misoprostol 1000 mcg 1,000 mcg ONCE PRN [place] VAGINAL BLEEDING; Start 07/18/16 at 11:30 Dextrose/Sodium Chloride (D5-1/2ns) 1,000 ml @ 100 mls/hr Q10H IV Last administered on 07/23/16 04:09; Admin Dose 100 MLS/HR; Start 07/22/16 at 14:56 Acetaminophen/ Hydrocodone Bitart ([place] (5/325)) 1 tab Q4H PRN PO PAIN LEVEL 1 -5; Start 07/22/16 at 15:00 Acetaminophen/ Hydrocodone Bitart ([place] (5/325)) 2 tab Q4H PRN PO PAIN LEVEL 6 -10; Start 07/22/16 at 15:00 Ondansetron HCl (Zofran Inj) 4 mg Q6H PRN IV NAUSEA AND/OR VOMITING; Start 07/22 at 15:00 Docusate Sodium (Colace) 100 mg BID PO Last administered on 07/22/16 21:29; Admin Dose 100 MG; Start 07/22/16 at 15:00 Acetaminophen (Tylenol Tab) 650 mg Q4H PRN PO TEMP GREATER THAN 101F OR JONES; Start 07/22/16 at 15:00 Ascorbic Acid (Vitamin C) 1,000 mg BID PO ; Start 07/23/16 at 09:00 Ferrous Sulfate (Ferrous Sulfate (Ec)) 325 mg TID PO ; Start 07/23/16 at 09:00 Diazepam (Valium) 5 mg Q4H PRN PO MUSCLE SPASMS; Start 07/22/16 at 15:00 Phenol (Cepastat Lozenge) 1 lozenge PRN PRN [place] SORE THROAT; Start 07/22/16 at 15 :00 Diphenhydramine HCl (Benadryl) 50 mg Q6H PRN PO PRURITUS; Start 07/22/16 at 15: 00 Morphine Sulfate (morphine) Q4PCA IV Last administered on 07/23/16 01:09; Admin Dose 30 MG; Start 07/22/16 at 15:00 Naloxone HCl 0.2 mg 0.2 mg Q2M PRN IV RR 8 BREATHS/MIN OR LESS; Start 07/22/16 at 15:00 Cefazolin Sodium 50 ml @ 100 mls/hr Q6H IVPB Last administered on 07/23/16 04: 08; Admin Dose 100 MLS/HR; Start 07/22/16 at 15:30; Stop 07/23/16 at 09:59 Nicardipine HCl/ Dextrose (Cardene Iv/D5W) 500 ml @ 50 mls/hr TITRATE IV ; Start 07/22/16 at 18:00 ERIN PAREKH MD Jul 23, 2016 07:40
[2016-07-23] MEDS: FERROUS SULFATE (EC) 325 MG TAB PO SCH ×3 (09:16→20:59)
[2016-07-23] MEDS: DOCUSATE SODIUM 100 MG CAP PO SCH ×2 (09:17→20:59)
[2016-07-23] MEDS: ASCORBIC ACID 500 MG TAB PO SCH ×2 (09:17→20:59)
--- NOTE | 2016-07-23 12:27 | CONS ---
Date/Time of Note Date/Time of Note DATE: 07/23/16 TIME: 12:25 Consult Date/Type/Reason Admit Date/Time Jul 17, 2016 at 22:30 Initial Consult Date Type of Consultation: neurosurgery Subjective Pt had no acute events overnight, seen by PT team. On CLD. Objective Vital Signs Date Time Temp Pulse Resp B/P Pulse Ox O2 Delivery O2 Flow Rate FiO2 07/23/16 11:00 68 10 122/60 96 07/23/16 08:00 Nasal Cannula 2.0 07/23/16 08:00 97.9 Intake and Output 07/22/16 07/22/16 07/23/16 15:00 23:00 07:00 Intake Total 3050 ml 1110 ml 1350 ml Output Total 3120 ml 800 ml 915 ml Balance -70 ml 310 ml 435 ml Constitutional: alert, oriented,has neck brace in place Head: atraumatic, normocephalic Eyes: EOMI, PERRL Respiratory: clear to auscultation, normal air movement, spine drain in place Cardiovascular: nl pulses, regular rate and rhythm Gastrointestinal: soft, tender Neurological: other (weakness/numbness) Results/Medications Result Diagram: 07/23/16 0515 07/23/16 0515 Results 24 hrs Laboratory Tests Test 07/22/16 13:08 07/23/16 05:15 Arterial Blood HCO3 21.9 L Arterial Blood Base Excess -2.2 Arterial Blood Oxygen Saturation 99.0 H Carter Test N/A Arterial Blood Gas Puncture Site A-Line Arterial Blood Carboxyhemoglobin 0.2 Arterial Blood Date Drawn 07/22/2016 1:05:39 PM Arterial Blood Methemoglobin 0.4 Arterial Blood pCO2 (Temp correct) 35.0 Arterial Blood pH (Temp corrected) 7.415 Arterial Blood pO2 (Temp corrected) 466.5 H Blood Gas A-a O2 Differential 211.5 H Blood Gas Modality SURGERY Blood Gas Notified Time 07/22/2016 1:16:36 PM Blood Gas Notified Whom LEANND Blood Gas Specimen Source Blood arterial Blood Gas Temperature 37.0 FiO2 100.0 Oxyhemoglobin Percent 98.4 Total Hemoglobin 10.3 L Anion Gap 14 Blood Urea Nitrogen 10 Calcium Level 7.8 L Carbon Dioxide Level 24 Chloride Level 103 Creatinine 0.48 Glucose Level 116 Hematocrit 29.0 L Hemoglobin 10.1 L Potassium Level 3.9 Sodium Level 137 Medications Current Medications Oxycodone/ Acetaminophen (Percocet (5/ 325)) 1 tab Q4H PRN PO PAIN LEVEL 4-6; Start 07/18/16 at 11:30 Oxycodone/ Acetaminophen (Percocet (5/ 325)) 2 tab Q4H PRN PO PAIN LEVEL 7-10 Last administered on 07/20/16 08:32; Admin Dose 2 TAB; Start 07/18/16 at 11:30 Ibuprofen (Motrin) 600 mg Q6 PO Last administered on 07/23/16 12:21; Admin Dose 600 MG; Start 07/18/16 at 12:00 Simethicone 160 mg 160 mg Q8H PRN PO DISTENSION/GAS/BLOATING Last administered on 07/19/16 20:04; Admin Dose 160 MG; Start 07/18/16 at 11:30 Oxytocin/Lactated Ringer's 500 ml @ 0 mls/hr ONCE PRN IV For Hemorrhage Management; Start 07/18/16 at 11:30 Methylergonovine Maleate (Methergine) 0.2 mg ONCE PRN IM VAGINAL BLEEDING; Start 07/18/16 at 11:30 Carboprost Tromethamine (Hemabate) 250 mcg ONCE PRN IM VAGINAL BLEEDING; Start 07/18/16 at 11:30 Misoprostol 1000 mcg 1,000 mcg ONCE PRN [place] VAGINAL BLEEDING; Start 07/18/16 at 11:30 Dextrose/Sodium Chloride (D5-1/2ns) 1,000 ml @ 100 mls/hr Q10H IV Last administered on 07/23/16 04:09; Admin Dose 100 MLS/HR; Start 07/22/16 at 14:56 Acetaminophen/ Hydrocodone Bitart ([place] (5/325)) 1 tab Q4H PRN PO PAIN LEVEL 1 -5; Start 07/22/16 at 15:00 Acetaminophen/ Hydrocodone Bitart ([place] (5/325)) 2 tab Q4H PRN PO PAIN LEVEL 6 -10; Start 07/22/16 at 15:00 Ondansetron HCl (Zofran Inj) 4 mg Q6H PRN IV NAUSEA AND/OR VOMITING; Start 07/22 at 15:00 Docusate Sodium (Colace) 100 mg BID PO Last administered on 07/23/16 09:17; Admin Dose 100 MG; Start 07/22/16 at 15:00 Acetaminophen (Tylenol Tab) 650 mg Q4H PRN PO TEMP GREATER THAN 101F OR JONES; Start 07/22/16 at 15:00 Ascorbic Acid (Vitamin C) 1,000 mg BID PO Last administered on 07/23/16 09:17; Admin Dose 1,000 MG; Start 07/23/16 at 09:00 Ferrous Sulfate (Ferrous Sulfate (Ec)) 325 mg TID PO Last administered on 12:21; Admin Dose 325 MG; Start 07/23/16 at 09:00 Diazepam (Valium) 5 mg Q4H PRN PO MUSCLE SPASMS; Start 07/22/16 at 15:00 Phenol (Cepastat Lozenge) 1 lozenge PRN PRN [place] SORE THROAT; Start 07/22/16 at 15 :00 Diphenhydramine HCl (Benadryl) 50 mg Q6H PRN PO PRURITUS; Start 07/22/16 at 15: 00 Morphine Sulfate (morphine) Q4PCA IV Last administered on 07/23/16 09:11; Admin Dose 1 MG; Start 07/22/16 at 15:00 Naloxone HCl 0.2 mg 0.2 mg Q2M PRN IV RR 8 BREATHS/MIN OR LESS; Start 07/22/16 at 15:00 Nicardipine HCl/ Dextrose (Cardene Iv/D5W) 500 ml @ 50 mls/hr TITRATE IV ; Start 07/22/16 at 18:00 Assessment/Plan Chief Complaint/Hosp Course 25 F with: 1. 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 2. Extremity weakness/numbness, 2/2 above - f/u Neuro rec's, PT. 3. Anemia: likely 2/2 blood loss: monitor closely and transfuse as needed Further recommendation based on clinical course. We will continue to follow Critical care time spent with pt care today = 35 min. Problems: THALIA CARRASQUILLO Jul 23, 2016 12:27
--- NOTE | 2016-07-23 19:32 | OPR ---
DATE OF OPERATION: 07/22/2016 PREOPERATIVE DIAGNOSES: 1. Cervical myelopathy. 2. Cervical/thoracic epidural hematoma. POSTOPERATIVE DIAGNOSES: 1. Cervical myelopathy. 2. Cervical/thoracic epidural hematoma. PROCEDURES: 1. Cervical laminectomy C4-C7, for evacuation of epidural hematoma. 2. Thoracic laminectomy T1-T4 for evacuation of epidural hematoma. 3. Use of intraoperative microscope for microdissection. SURGEON: Dr. Kavya Avila. WAISTBAND SETTER: None. ANESTHESIOLOGIST: Raymundo Duarte DO ANESTHESIA: General endotracheal. DRAINS PLACED: One subfascial MIKE drain. ESTIMATED BLOOD LOSS: 800 mL. IMPLANTS/GRAFTS: None. FINDINGS: Organized epidural hematoma with complex pseudomembrane and possible thoracic vascular ma lformation. COMPLICATIONS: None. DISPOSITION: Recovery. INDICATIONS: The patient is a 25-year-old female who reported acute onset of neck pain 3 weeks ago and began having progressive quadriplegia 2 weeks ago. The patient was 3 days and MRI wa s performed showing findings consistent with a dorsal thoracic epidural hematoma. The etiology of t his was unclear, as patient did not appear to have a coagulopathy or platelet dysfunction and had no history of abnormal bleeding. Consideration for spinal angiogram was given; however, given the pat ient's neurologic status and the logistics of transfer that might significantly delay decompression, it was felt, after consultation with other neurosurgeons, that the most appropriate approach was to decompress the patient with some risk of perhaps a finding a malformation. The risks, benefits, an d alternatives of surgical intervention were discussed with the patient who elected for surgery. DESCRIPTION OF PROCEDURE: The patient was brought to the OR. She was sedated, intubated, and anest hesia was successfully induced. A Barros catheter was placed. Sequential compression devices were p laced. Electrophysiologic monitoring was performed to established. baseline potentials, which were depressed. The patient was placed in a Mendoza 3-point head fixation, then placed in prone positi on on the operative table with log roll padding and secured to the operative table. The neck was sl ightly flexed forward. All pressure points were appropriately padded. The patient was sterilely pr epped and draped. Fluoroscopy was used to localize the incision. The patient was given perioperati ve antibiotics and sequential compression devices were placed. After surgical time-out, the procedure commenced. A 10 blade knife was used to make an incision from C4 down to T4. Bovie electrocautery was used to dissect through the subcutaneous tissue and fascia down to the spinous processes. Subperiosteal dissection along the spinous process and lamina to the mid lateral mass from C4-T4 was performed. Self-retaining retractors were placed. Localization was again confirmed with fluorosco py. A high speed drill was then used to perform complete laminectomies from L4 down to T4. Underne ath the ligamentum flavum, there appeared to be a complex pseudomembrane with pockets of dark coagul ated blood, consistent with an organized hematoma. This appeared similar to an abscess with hematom a rather than pus present. The plane of the complex membrane was difficult to explain the plane of the complex membrane was difficult as there was the loculations and layers of blood, and it appeared adherent to the dura and in many places appeared difficult to distinguish from the dura. However, decompression was performed from C4 and T4, which appeared to be normal dura and worked inferiorly a nd superiorly to define the planes. Care was taken to gently remove these multiple membranes and cl ot off the thecal sac and, after this was decompressed, there appeared to be no shifting of the spin al cord or thecal sac, which was previously present on the MRI. In the course of the dissection, there did appear to be, at approximately T1 and T2 level, both kan rial and venous bleeding that came from blood vessels external to the dura, that appeared abnormal and possibly consistent with vascular malformation. In order to control these, they were coagulated and hence specimen was not able to be obtained, but they extended laterally beyond the edges of the incision. Nevertheless, when these were coagulated, there was complete cessation of the bleeding. The thecal sac appeared compressed and there did not appear to be any further bleeding. The patient did require blood transfusion, as her hemoglobin had dropped and, given that she was pos tpartum, as well as the fact that because of the concern because of the possible malformation, it wa s felt that during the case, in case that more blood loss would occur, the patient would best have s ufficient blood available. Hemostasis had been achieved and the retractors were moved and the muscl e coagulated. A Hemovac drain was tunneled through the skin into the epidural space. It was secure d at the surface. The incision was then closed with 1-0 interrupted Vicryl sutures and care was nallely en to ensure the drain was able to be removed and not sutured, 2-0 Vicryl sutures in the subcutaneou s tissue, and a running 4-0 Monocryl subcuticular suture. Dermabond was placed on the incision, all owed to dry, and a sterile dressing applied. The patient was taken off the table, taken out of Mendoza fixation, extubated, and taken to recover y. Sponge, needle and cottonoid count were reported correct at the end of case. Electrophysiologic monitoring remained stable throughout the case. Dictated By: KAVYA AVILA MD, LG/BEE Conf#: [id number] DID#: [id number]
[2016-07-23] MEDS: LANOLIN 7 GM TUBE TOP PRN (19:43)
[2016-07-24] VITALS (17 sets, daily range): BP systolic 90–138; BP diastolic 52–82; PULSE 76–121; RESP 11–26
[2016-07-24] MEDS: IBUPROFEN 600 MG TAB PO SCH ×4 (00:25→17:54)
[2016-07-24] MEDS: DEXTROSE 5%-0.45% NACL 1,000 ML IV SCH ×3 (02:29→17:52)
[2016-07-24] MEDS: HYDROCODONE/APAP (5/325) TAB PO PRN ×2 (05:47→09:52)
[2016-07-24] MEDS: ASCORBIC ACID 500 MG TAB PO SCH ×2 (08:19→21:46)
[2016-07-24] MEDS: FERROUS SULFATE (EC) 325 MG TAB PO SCH ×3 (08:19→21:46)
[2016-07-24] MEDS: DOCUSATE SODIUM 100 MG CAP PO SCH ×2 (08:21→21:46)
--- NOTE | 2016-07-24 09:28 | PN ---
Date/Time of Note Date/Time of Note DATE: 07/24/16 TIME: 09:23 Assessment/Plan Lines/Catheters IV Catheter Type (from Nrs): Saline Lock Barros in Place (from Nrs): Yes Assessment/Plan Chief Complaint/Hosp Course POD # 2 s/p C4-T4 laminectomy for epidural hematoma Doing well. D/C Barros. 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 Ok transfer from ICU. DVT prophylaxis with SCD PT/OT. Hard Collar PRN for comfort. recommend spinal angiogram in future. Problems: Subjective 24 Hr Interval Summary Patient feels stronger and less numbness. Pain in neck controlled. Denies fevers or chills. Exam/Review of Systems Vital Signs Vitals Vital Signs Date Time Temp Pulse Resp B/P Pulse Ox O2 Delivery O2 Flow Rate FiO2 07/24/16 08:00 98.3 84 18 120/68 96 Room Air 07/23/16 20:00 1.0 Intake and Output 07/23/16 07/23/16 07/24/16 15:00 23:00 07:00 Intake Total 1640 ml 1790 ml 1460 ml Output Total 1130 ml 1335 ml 1750 ml Balance 510 ml 455 ml -290 ml Exam Constitutional: alert, oriented, well developed Psych: nl mood/affect Drains subfascial MIKE discontinued Neurological: STAFF REGISTERED NURSE II-XII intact, nl mental status, nl speech, nl strength, other (continued hyperreflexia. Motor exam better 5/5 deltoid, bicep 4- triceps and 4 WE, 4+ manager laundry, 4/5 LE ) Skin: other (incision clean, dry and intact) Results Result Diagram: 07/23/16 0515 07/23/16 0515 KAVYA LYNN MD Jul 24, 2016 09:28
--- NOTE | 2016-07-24 09:35 | PN ---
Date/Time of Note Date/Time of Note DATE: 07/23/16 TIME: 02:45 Assessment/Plan Lines/Catheters IV Catheter Type (from Nrs): Saline Lock Barros in Place (from Nrs): Yes Assessment/Plan Chief Complaint/Hosp Course POD # 1 s/p C4-T4 laminectomy for epidural hematoma Doing well. SCD for DVTP Cont. Barros. start PT/OT. cont. drain/ Problems: Subjective 24 Hr Interval Summary Patient reports some improved sensation and strength. Incision neck pain. Denies fever or chills. Additional Comments OBJECTIVE: AVSS incision C/D/I. Motor exam slightly improved, 4+/5 proximal U/LE, 4/5 distal. GRAVELY,KAVYA Munoz MD Jul 24, 2016 09:35
--- NOTE | 2016-07-24 11:01 | PN ---
Date/Time of Note Date/Time of Note DATE: 07/24/16 TIME: 10:58 Assessment/Plan VTE Prophylaxis VTE Prophylaxis Intervention: SCD's Lines/Catheters IV Catheter Type (from Nrsg): Saline Lock Urinary Cath still in place: Yes Reason Cath still needed: urinary retention Assessment/Plan Chief Complaint/Hosp Course 25 F with: 1. 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 2. Extremity weakness/numbness, 2/2 above - improved - f/u Neuro rec's, PT. 3. Anemia: likely 2/2 blood loss: H/H stable - monitor closely and transfuse as needed Further recommendation based on clinical course. We will continue to follow Critical care time spent with pt care today = 35 min. Problems: Subjective 24 Hr Interval Summary Free Text/Dictation No acute events overnight, seen by NSS team. Exam/Review of Systems Vital Signs Vitals Vital Signs Date Time Temp Pulse Resp B/P Pulse Ox O2 Delivery O2 Flow Rate FiO2 07/24/16 09:00 83 11 93/74 95 07/24/16 08:00 98.3 Room Air 07/23/16 20:00 1.0 Intake and Output 07/23/16 07/23/16 07/24/16 15:00 23:00 07:00 Intake Total 1640 ml 1790 ml 1460 ml Output Total 1130 ml 1335 ml 1750 ml Balance 510 ml 455 ml -290 ml Exam Constitutional: alert, oriented,has neck brace in place Head: atraumatic, normocephalic Eyes: EOMI, PERRL Respiratory: clear to auscultation, normal air movement, spine drain in place Cardiovascular: nl pulses, regular rate and rhythm Gastrointestinal: soft, tender Neurological: other (weakness/numbness) Results Result Diagram: 07/23/1651407/23/16514 Medications Medications Current Medications Oxycodone/ Acetaminophen (Percocet (5/ 325)) 1 tab Q4H PRN PO PAIN LEVEL 4-6; Start 07/18/16 at 11:30 Oxycodone/ Acetaminophen (Percocet (5/ 325)) 2 tab Q4H PRN PO PAIN LEVEL 7-10 Last administered on 07/20/16t 08:32; Admin Dose 2 TAB; Start 07/18/16 at 11:30 Ibuprofen (Motrin) 600 mg Q6 PO Last administered on 07/24/16 05:47; Admin Dose 600 MG; Start 07/18/16 at 12:00 Simethicone 160 mg 160 mg Q8H PRN PO DISTENSION/GAS/BLOATING Last administered on 07/19/16 20:04; Admin Dose 160 MG; Start 07/18/16 at 11:30 Oxytocin/Lactated Ringer's 500 ml @ 0 mls/hr ONCE PRN IV For Hemorrhage Management; Start 07/18/16 at 11:30 Methylergonovine Maleate (Methergine) 0.2 mg ONCE PRN IM VAGINAL BLEEDING; Start 07/18/16 at 11:30 Carboprost Tromethamine (Hemabate) 250 mcg ONCE PRN IM VAGINAL BLEEDING; Start 07/18/16 at 11:30 Misoprostol 1000 mcg 1,000 mcg ONCE PRN [place] VAGINAL BLEEDING; Start 07/18/16 at 11:30 Dextrose/Sodium Chloride (D5-1/2ns) 1,000 ml @ 100 mls/hr Q10H IV Last administered on 07/24/16 07:08; Admin Dose 100 MLS/HR; Start 07/22/16 at 14:56 Acetaminophen/ Hydrocodone Bitart ([place] (5/325)) 1 tab Q4H PRN PO PAIN LEVEL 1 -5 Last administered on 07/24/16 05:47; Admin Dose 1 TAB; Start 07/22/16 at 15:00 Acetaminophen/ Hydrocodone Bitart ([place] (5/325)) 2 tab Q4H PRN PO PAIN LEVEL 6 -10 Last administered on 07/24/16 09:52; Admin Dose 2 TAB; Start 07/22/16 at 15: 00 Ondansetron HCl (Zofran Inj) 4 mg Q6H PRN IV NAUSEA AND/OR VOMITING; Start 07/22 at 15:00 Docusate Sodium (Colace) 100 mg BID PO Last administered on 07/24/16 08:21; Admin Dose 100 MG; Start 07/22/16 at 15:00 Acetaminophen (Tylenol Tab) 650 mg Q4H PRN PO TEMP GREATER THAN 101F OR JONES; Start 07/22/16 at 15:00 Ascorbic Acid (Vitamin C) 1,000 mg BID PO Last administered on 07/24/16 08:19; Admin Dose 1,000 MG; Start 07/23/16 at 09:00 Ferrous Sulfate (Ferrous Sulfate (Ec)) 325 mg TID PO Last administered on 08:19; Admin Dose 325 MG; Start 07/23/16 at 09:00 Diazepam (Valium) 5 mg Q4H PRN PO MUSCLE SPASMS; Start 07/22/16 at 15:00 Phenol (Cepastat Lozenge) 1 lozenge PRN PRN [place] SORE THROAT; Start 07/22/16 at 15 :00 Diphenhydramine HCl (Benadryl) 50 mg Q6H PRN PO PRURITUS; Start 07/22/16 at 15: 00 Morphine Sulfate (morphine) Q4PCA IV Last administered on 07/23/16 18:14; Admin Dose 30 MG; Start 07/22/16 at 15:00 Naloxone HCl 0.2 mg 0.2 mg Q2M PRN IV RR 8 BREATHS/MIN OR LESS; Start 07/22/16 at 15:00 Nicardipine HCl/ Dextrose (Cardene Iv/D5W) 500 ml @ 50 mls/hr TITRATE IV ; Start 07/22/16 at 18:00 THALIA CARRASQUILLO Jul 24, 2016 11:01
[2016-07-24] MEDS ORDERED: BETHANECHOL 25 MG TAB PO ONE (16:30)
[2016-07-24] MEDS: OXYCODONE/ACETAMINOPHEN (5/325) TAB PO PRN (21:47)
[2016-07-25] MEDS: IBUPROFEN 600 MG TAB PO SCH ×4 (00:19→18:28)
[2016-07-25] MEDS: DEXTROSE 5%-0.45% NACL 1,000 ML IV SCH ×2 (05:04→22:56)
--- NOTE | 2016-07-25 08:09 | PN ---
Date/Time of Note Date/Time of Note DATE: 07/25/16 TIME: 08:04 Assessment/Plan Lines/Catheters IV Catheter Type (from [facility]): Saline Lock Barros in Place (from [facility]): No Assessment/Plan Chief Complaint/Hosp Course POD # 3 s/p C4-T4 laminectomy for epidural hematoma Improving neurologically but still; with weakness due to SCI. SCD for DVTP PT/OT.- rehab [facility] Problems: Subjective 24 Hr Interval Summary Patient stable. Reports some improved strength but still with quadriparesis. Reports neck discomfort as expected from operation. Denies fevers or chills. Exam/Review of Systems Vital Signs Vitals Vital Signs Date Time Temp Pulse Resp B/P Pulse Ox O2 Delivery O2 Flow Rate FiO2 07/24/16 19:26 98.8 87 20 131/75 100 07/24/16 08:00 Room Air 07/23/16 20:00 1.0 Intake and Output 07/24/16 07/24/16 07/25/16 15:00 23:00 07:00 Intake Total 740 ml 500 ml 1700 ml Output Total 1100 ml 1500 ml 650 ml Balance -360 ml -1000 ml 1050 ml Exam Constitutional: alert, oriented, well developed Psych: nl mood/affect Head: atraumatic, normocephalic Neurological: CONVEYOR ATTENDANT II-XII intact, nl mental status (Motor exam continues to improve, mildly weak community music therapist, WE and triceps, LE >4/5 but poot coordination ) Results Result Diagram: 07/23/16 0515 07/23/16 0515 KAVYA LYNN MD Jul 25, 2016 08:09
[2016-07-25] MEDS: DOCUSATE SODIUM 100 MG CAP PO SCH ×2 (09:05→20:24)
[2016-07-25] MEDS: ASCORBIC ACID 500 MG TAB PO SCH ×2 (09:05→20:24)
[2016-07-25] MEDS: FERROUS SULFATE (EC) 325 MG TAB PO SCH ×3 (09:05→20:24)
[2016-07-25] MEDS: HYDROCODONE/APAP (5/325) TAB PO PRN (09:05)
--- NOTE | 2016-07-25 10:11 | QN ---
Documentation Comment patient seen and evaluated ab c/d/i no distention nt utrerin fundus below umbill extremity no edema no calf tenderness a/ s/p cd with evacuated of hematoma of cervical/thoracic epidural, stable patient cleared obstetrically p/continue care with neurosurgeon and hospitalist recommend follow up in my office in 2 weeks NAVYA JACOB MD Jul 25, 2016 10:11
--- NOTE | 2016-07-25 11:34 | CONS ---
Date/Time of Note Date/Time of Note DATE: 07/25/16 TIME: 11:33 Assessment/Plan Assessment/Plan Additional Assessment/Plan 25 F with: 1. Cervical-thoracic epidural hematoma: s/p evacuation/laminectomy C4-T4 POD # 3 - f/u photographic supervisor and NSS rec's, monitor drain. 2. Extremity weakness/numbness, 2/2 above - improved - f/u Neuro rec's, PT for rehab needed 3. Anemia: likely 2/2 blood loss: H/H stable - monitor closely and transfuse as needed Further recommendation based on clinical course. Consultation Date/Type/Reason Admit Date/Time Jul 17, 2016 at 22:30 Initial Consult Date Type of Consultation: medicine Referring Provider: NAVYA JACOB MD 24 HR Interval Summary Free Text/Dictation No overnight events. Awaiting PT evaluation for function. Otherwise spoke to her about the care plan. 10 minutes spent. Exam/Review of Systems Vital Signs Vitals Vital Signs Date Time Temp Pulse Resp B/P Pulse Ox O2 Delivery O2 Flow Rate FiO2 07/24/16 19:26 98.8 87 20 131/75 100 07/24/16 08:00 Room Air 07/23/16 20:00 1.0 Intake and Output 07/24/16 07/24/16 07/25/16 15:00 23:00 07:00 Intake Total 740 ml 500 ml 1700 ml Output Total 1100 ml 1500 ml 650 ml Balance -360 ml -1000 ml 1050 ml Exam Gen Stefano: mild pain, AAOx4 HEENT: NC/AT, PERRLA, EOMI, no pharyngeal erythema, no tonsillar exudates, no lymphadenopathy, no JVD, no carotid bruits NECK: with cervical collar THORAX: symmetrical, no obvious deformities CV: S1S2, RRR, no M/G/R Lungs: CTAB no W/C/R/R Abd: soft, NT/ND, +BS, no rebound, no guarding, neg HSM EXT: no edema, no ecchymosis, no clubbing, improving movement and strength Neuro: improving function Psych: good mentation, alert and oriented, good mood and affect Skin: C/D/I Results Result Diagram: 07/23/1615 07/23/16514 Medications Medications Current Medications Oxycodone/ Acetaminophen (Percocet (5/ 325)) 1 tab Q4H PRN PO PAIN LEVEL 4-6; Start 07/18/16 at 11:30 Oxycodone/ Acetaminophen (Percocet (5/ 325)) 2 tab Q4H PRN PO PAIN LEVEL 7-10 Last administered on 07/24/16 21:47; Admin Dose 2 TAB; Start 07/18/16 at 11:30 Ibuprofen (Motrin) 600 mg Q6 PO Last administered on 07/25/16 05:04; Admin Dose 600 MG; Start 07/18/16 at 12:00 Simethicone 160 mg 160 mg Q8H PRN PO DISTENSION/GAS/BLOATING Last administered on 07/19/16 20:04; Admin Dose 160 MG; Start 07/18/16 at 11:30 Oxytocin/Lactated Ringer's 500 ml @ 0 mls/hr ONCE PRN IV For Hemorrhage Management; Start 07/18/16 at 11:30 Methylergonovine Maleate (Methergine) 0.2 mg ONCE PRN IM VAGINAL BLEEDING; Start 07/18/16 at 11:30 Carboprost Tromethamine (Hemabate) 250 mcg ONCE PRN IM VAGINAL BLEEDING; Start 07/18/16 at 11:30 Misoprostol 1000 mcg 1,[address] VAGINAL BLEEDING; Start 07/18/16 at 11:30 Dextrose/Sodium Chloride (D5-1/2ns) 1,000 ml @ 100 mls/hr Q10H IV Last administered on 07/25/16 05:04; Admin Dose 100 MLS/HR; Start 07/22/16 at 14:56 Acetaminophen/ Hydrocodone Bitart ([place] (5/325)) 1 tab Q4H PRN PO PAIN LEVEL 1 -5 Last administered on 07/24/16 05:47; Admin Dose 1 TAB; Start 07/22/16 at 15:00 Acetaminophen/ Hydrocodone Bitart ([place] (5/325)) 2 tab Q4H PRN PO PAIN LEVEL 6 -10 Last administered on 07/25/16 09:05; Admin Dose 2 TAB; Start 07/22/16 at 15: 00 Ondansetron HCl (Zofran Inj) 4 mg Q6H PRN IV NAUSEA AND/OR VOMITING; Start 07/22 at 15:00 Docusate Sodium (Colace) 100 mg BID PO Last administered on 07/25/16 09:05; Admin Dose 100 MG; Start 07/22/16 at 15:00 Acetaminophen (Tylenol Tab) 650 mg Q4H PRN PO TEMP GREATER THAN 101F OR JONES; Start 07/22/16 at 15:00 Ascorbic Acid (Vitamin C) 1,000 mg BID PO Last administered on 07/25/16 09:05; Admin Dose 1,000 MG; Start 07/23/16 at 09:00 Ferrous Sulfate (Ferrous Sulfate (Ec)) 325 mg TID PO Last administered on 09:05; Admin Dose 325 MG; Start 07/23/16 at 09:00 Diazepam (Valium) 5 mg Q4H PRN PO MUSCLE SPASMS Last administered on 07/25/16 09:05; Admin Dose 5 MG; Start 07/22/16 at 15:00 Phenol (Cepastat Lozenge) 1 lozenge PRN PRN [place] SORE THROAT; Start 07/22/16 at 15 :00 Diphenhydramine HCl (Benadryl) 50 mg Q6H PRN PO PRURITUS; Start 07/22/16 at 15: 00 Naloxone HCl (Narcan) 0.2 mg Q2M PRN IV RR 8 BREATHS/MIN OR LESS; Start at 15:00 BRET LLAMAS MD Jul 25, 2016 11:34
[2016-07-25 20:10] VITALS: BP 155/75; RESP 20
[2016-07-26] MEDS: IBUPROFEN 600 MG TAB PO SCH ×5 (00:07→23:11)
[2016-07-26] MEDS: DEXTROSE 5%-0.45% NACL 1,000 ML IV SCH ×3 (06:01→18:56)
[2016-07-26 07:42] VITALS: BP 146/74; RESP 19
[2016-07-26] MEDS: FERROUS SULFATE (EC) 325 MG TAB PO SCH ×3 (09:00→20:56)
--- NOTE | 2016-07-26 11:31 | PDOCDIS ---
Discharge Instructions DIAGNOSIS Discharge Diagnosis: Cervical Thoracic Hematoma CONDITION Patient Condition: Fair HOME CARE INSTRUCTIONS: Diet Instructions: RegularSpecial Diet: Clear liquid, advance as tolerated ACTIVITY: Activity Restrictions: Slowly Increase Activity Rest between Activity Avoid heavy lifting No Sexual Activity Do not Drive Do not operate Machinery Do not operate Power Tool Avoid Heavy Housework Partial Weight Bearing Bathing Restrictions: Tub Bath FOLLOW UP/APPOINTMENTS Appointments Follow up with Dr. Paul Avila in 1-2 days. Follow up with home health for physical therapy and Occupational therapy. OTHER ORDERS: Other Orders: epidural hematoma s/p evacuation - do not shower until cleared by neurosurgery. continue with physical therapy/occupational therapy, pain medications. If you are having worsening numbness and tingling - please come back to the hospital for further evaluation and treatment. BRET LLAMAS MD Jul 26, 2016 11:31
[2016-07-26] MEDS ORDERED: DOCU-144 PO (11:34)
[2016-07-26] MEDS ORDERED: Oxycodone/Acetamin (5/325) PO (11:34)
--- NOTE | 2016-07-26 12:18 | DS ---
DATE OF ADMISSION: 07/17/2016 DATE OF DISCHARGE: 07/26/2016 DISCHARGE DIAGNOSES: 1. Cervical, thoracic epidural hematoma status post evacuation laminectomy C4 to T4. 2. Status post section. 3. Extremity weakness and numbness secondary to number 1. 4. Anemia secondary to blood loss. HOSPITAL COURSE: This is a 25-year-old lady with no past medical history, 30 weeks and del ivered who has been under OB. At this time, Dr. Matthew was following the patient for numbn ess and weakness. The numbness and weakness has gradually worsened at that time and a cervical lami nectomy C4-C7 and a thoracic laminectomy T1-T4 was completed by Dr. Miller Gravely at the time for ev acuation of a hematoma. IMAGING: Initial thoracic spine MRI had shown: 1. Epidural hematoma extending from the posterior cervical epidural space throughout the posterior epidural space within the thoracic spine with maximum thickness in the thoracic spine, of 3 to 4 mur mur. 2. Displacement of the cord anteriorly and to the right in the upper thoracic spine from T1 through T5 levels and resumes its normal configuration inferior to the T5 through termination at L1. 3. No abnormal cord signal present. Cervical spine MRI had shown: 1. Acute posterior epidural hematoma extending from the C4 through inferior most axial image evalua manish at the T2 level, measuring approximate dimension of 8.3 cm inferiorly by a maximum 8 mm anterior posteriorly. 2. Cord compression, severe central canal stenosis at the C4-C5 through T2 level was without abdomi nal cord signal. 3. Straightening of the normal cervical lordosis. Brain MRI was completed showin. No evidence of acute intracranial hemorrhage, infarction or acute intracranial pathology. 2. Normal contrast brain MRI without evidence for abnormal enhancement. 3. Left maxillary sinus retention cyst. Cervical spine x-ray showed intraoperative imaging of the cervical spine. LABORATORIES: Initial laboratory findings had shown a white count of 9.4, H and H 12.9 and 36.4, pl atelets of 221. Current white count is 10.0, H and H of 10.1 and 29.0, with platelets of 294. Chemistry has been stable throughout her stay. A mild elevated alkaline phosphatase of 222 went to 186. Coags were within normal limits. Blood gas was within normal limits. RPR was negative. Microbiology showed Pseudomonas aeruginosa in the urine, which is pansensitive at the time. Otherwise, the patient had a surgical procedure completed which was a cervical laminectomy C4-C7, th oracic laminectomy T1 at T4 with evacuation of epidural hematoma and use of intraoperative microscop e for microdissection. The patient had improved general functioning. She was seen by PT at this ti me recommending that acute rehab or SNF at this time will not qualify. Will go home with home healt h and PT and to. I spoke to the patient at length about the care plan. She understood at this time that it is going to take some time for her to recover her functioning and that it is a day to day b asis. CONDITION: Fair. DISPOSITION: Home with home health. DISCHARGE MEDICATIONS: Include: 1. Percocet 5/325 q.4h. p.r.n. 2. Colace 100 mg p.o. b.i.d. 3. Ferrous sulfate 325 mg p.o. b.i.d. FOLLOWUP: Follow up with Dr. Palu Avila within a week. Will follow up with DOCUMENTUM CONSULTANT as scheduled. Will followup with primary care physician in a week. The patient will need CT spinal angiogram wi thin the next couple of days at this time to figure out if the bleed has stopped or if there is furt her intervention that is needed at this time. Patient and consultants were made aware of this and agree with the plan. COORDINATION OF DISCHARGE: greater than 40 minutes. Dictated By: BRET KRAUSE/BEE Conf#: [id number] DID#: [id number]
[2016-07-26] MEDS: DOCUSATE SODIUM 100 MG CAP PO SCH ×2 (16:05→20:56)
[2016-07-26] MEDS: ASCORBIC ACID 500 MG TAB PO SCH ×2 (16:06→20:56)
--- NOTE | 2016-07-26 19:22 | PN ---
Date/Time of Note Date/Time of Note DATE: 07/26/16 TIME: 19:19 Assessment/Plan Lines/Catheters IV Catheter Type (from Nrs): Saline Lock Barros in Place (from Nrs): No Assessment/Plan Chief Complaint/Hosp Course POD # 4 s/p C4-T4 laminectomy for epidural hematoma Improving neurologically but still; with weakness due to SCI. SCD for DVTP PT/OT.- to transfer to [facility] tomorrow. Will need spinal angiogram at [facility] for probable treatment endovascularly if residual AVM seen. f/u with me in 2 weeks. Problems: Subjective 24 Hr Interval Summary Patient reports again feeling slightly stronger. Cervical pain controlled. Exam/Review of Systems Vital Signs Vitals Vital Signs Date Time Temp Pulse Resp B/P Pulse Ox O2 Delivery O2 Flow Rate FiO2 07/26/16 07:42 97.0 70 19 146/74 97 07/24/16 08:00 Room Air 07/23/16 20:00 1.0 Intake and Output 07/25/16 07/25/16 07/26/16 15:00 23:00 07:00 Intake Total 2040 ml 750 ml Output Total 1300 ml Balance 2040 ml -550 ml Exam Constitutional: alert, oriented, well developed Eyes: EOMI, PERRL Neurological: WRAPPER CASHIER II-XII intact, nl speech, other (stable motor exam, remains hypperflexic with 3 beat clonus. ) Skin: other (incision C/D/I, dressed.) Results Result Diagram: 07/23/16 0515 07/23/16 0515 KAVYA LYNN MD Jul 26, 2016 19:22
[2016-07-26 20:04] VITALS: BP 140/78; RESP 20
[2016-07-27] MEDS: DEXTROSE 5%-0.45% NACL 1,000 ML IV SCH ×2 (02:40→13:04)
[2016-07-27] MEDS: IBUPROFEN 600 MG TAB PO SCH ×2 (04:47→13:04)
[2016-07-27 08:13] VITALS: BP 144/77; RESP 18
[2016-07-27] MEDS: DOCUSATE SODIUM 100 MG CAP PO SCH ×2 (09:26→20:40)
[2016-07-27] MEDS: ASCORBIC ACID 500 MG TAB PO SCH ×2 (09:26→20:40)
[2016-07-27] MEDS: FERROUS SULFATE (EC) 325 MG TAB PO SCH ×3 (09:26→20:40)
[2016-07-27] MEDS: HYDROCODONE/APAP (5/325) TAB PO PRN (09:29)
--- NOTE | 2016-07-27 11:18 | DS ---
DATE OF ADMISSION: 07/17/2016 DATE OF DISCHARGE: 07/27/2016 ADDENDUM DISCHARGE DIAGNOSES: 1. Cervical, thoracic epidural hematoma status post evacuation laminectomy C4-T4. 2. Status post section. 3. Extremity weakness and numbness secondary to #1. 4. Anemia secondary to acute blood loss. The patient remains here, is going to be transferred to a long-term facility, [facility] at this time secondary to debility, deconditioning as well as overall function. Otherwise, no ot her acute complaints at this time. Spoke to her about the care plan and understands at this time. Physical therapy has worked with her, the patient is improving in ambulation as well. No other acut e complaints. Dictated By: BRET KRAUSE/BEE Conf#: [id number] DID#: [id number]
--- NOTE | 2016-07-27 18:17 | PN ---
Date/Time of Note Date/Time of Note DATE: 07/27/16 TIME: 18:14 Assessment/Plan Lines/Catheters IV Catheter Type (from Nrsg): Peripheral IV Barros in Place (from Nrsg): No Assessment/Plan Chief Complaint/Hosp Course POD # 5 s/p C4-T4 laminectomy for epidural hematoma Improving neurologically but still; with weakness due to SCI. SCD for DVTP PT/OT.- awaiting transfer to [facility] but having insurance issues. . Will need spinal angiogram at [facility] for probable treatment endovascularly if residual AVM seen. f/u with me in 2 weeks. Problems: Subjective 24 Hr Interval Summary Patient unchanged. No new complaints. Denies radicular pain or new weakness. Exam/Review of Systems Vital Signs Vitals Vital Signs Date Time Temp Pulse Resp B/P Pulse Ox O2 Delivery O2 Flow Rate FiO2 07/27/16 08:13 98.5 71 18 144/77 98 07/24/16 08:00 Room Air 07/23/16 20:00 1.0 Intake and Output 07/26/16 07/26/16 07/27/16 15:00 23:00 07:00 Intake Total 1310 ml 1280 ml Balance 1310 ml 1280 ml Exam Constitutional: alert, oriented Neurological: AUTOMOTIVE DESIGNER II-XII intact, other (unchanged motor exam from yesterday.) Skin: other (incision clean,dry, intact) Results Result Diagram: 07/23/16 0515 07/23/16 0515 KAVYA LYNN MD Jul 27, 2016 18:17
[2016-07-27 19:48] VITALS: BP 142/81; RESP 20
--- NOTE | 2016-07-28 08:16 | PN ---
Date/Time of Note Date/Time of Note DATE: 07/28/16 TIME: 08:14 Assessment/Plan Lines/Catheters IV Catheter Type (from Nrs): Saline Lock Barros in Place (from Nrs): No Assessment/Plan Chief Complaint/Hosp Course POD # 6 s/p C4-T4 laminectomy for epidural hematoma Improving neurologically but still; with weakness due to SCI. SCD for DVTP PT/OT.- awaiting transfer to [facility] but having insurance issues, may go home. Will need spinal angiogram at [facility] for probable treatment endovascularly if residual AVM seen. f/u with me in 2 weeks. Problems: Subjective 24 Hr Interval Summary no change since last night but stated that she did ambulate yesterday. Exam/Review of Systems Vital Signs Vitals Vital Signs Date Time Temp Pulse Resp B/P Pulse Ox O2 Delivery O2 Flow Rate FiO2 07/27/16 19:48 98.3 86 20 142/81 98 07/24/16 08:00 Room Air Intake and Output 07/27/16 07/27/16 07/28/16 15:00 23:00 07:00 Intake Total 1240 ml 420 ml Output Total 1000 ml Balance 1240 ml -580 ml Exam Constitutional: alert, oriented Neurological: GENERAL SCRAP WORKER II-XII intact, nl mental status, nl speech, other (still with weakness, RUE has improved more than right, generally truncal weakness but moving extremities with better strength) Skin: other (incision C/D/I) GRAVELY,KAVYA Munoz MD Jul 28, 2016 08:16
[2016-07-28 08:20] VITALS: BP 136/83; RESP 18
[2016-07-28] MEDS: FERROUS SULFATE (EC) 325 MG TAB PO SCH ×3 (09:02→20:23)
[2016-07-28] MEDS: HYDROCODONE/APAP (5/325) TAB PO PRN ×2 (09:02→21:36)
[2016-07-28] MEDS: DOCUSATE SODIUM 100 MG CAP PO SCH ×2 (09:02→20:22)
[2016-07-28] MEDS: ASCORBIC ACID 500 MG TAB PO SCH ×2 (09:03→20:23)
--- NOTE | 2016-07-28 11:18 | CONS ---
Date/Time of Note Date/Time of Note DATE: 07/28/16 TIME: 11:16 Assessment/Plan Assessment/Plan Additional Assessment/Plan 25 F with: 1. Cervical-thoracic epidural hematoma: s/p evacuation/laminectomy C4-T4 POD # 6 - f/u associate account manager and NSS rec's, monitor drain. 2. Extremity weakness/numbness, 2/2 above - improved - f/u Neuro rec's, PT for rehab needed 3. Anemia: likely 2/2 blood loss: H/H stable - monitor closely and transfuse as needed Further recommendation based on clinical course. - needs fdc for rehab this consult note took greater than 20 min to complete Consultation Date/Type/Reason Admit Date/Time Jul 17, 2016 at 22:30 Type of Consultation: medicine Referring Provider: NAVYA JACOB MD 24 HR Interval Summary Free Text/Dictation Patient had no overnight events. Spoke to her in regards to the care plan and the necessity for a nursing home facility. 10 minutes spent. Exam/Review of Systems Vital Signs Vitals Vital Signs Date Time Temp Pulse Resp B/P Pulse Ox O2 Delivery O2 Flow Rate FiO2 07/28/16 08:20 98.8 79 18 136/83 99 07/24/16 08:00 Room Air Intake and Output 07/27/16 07/27/16 07/28/16 15:00 23:00 07:00 Intake Total 1240 ml 420 ml Output Total 1000 ml Balance 1240 ml -580 ml Exam Gen Stefano: mild pain, AAOx4 HEENT: NC/AT, PERRLA, EOMI, no pharyngeal erythema, no tonsillar exudates, no lymphadenopathy, no JVD, no carotid bruits NECK: with cervical collar THORAX: symmetrical, no obvious deformities CV: S1S2, RRR, no M/G/R Lungs: CTAB no W/C/R/R Abd: soft, NT/ND, +BS, no rebound, no guarding, neg HSM EXT: no edema, no ecchymosis, no clubbing, improving movement and strength Neuro: improving function - still with slight neuropathy Psych: good mentation, alert and oriented, good mood and affect Skin: C/D/I Medications Medications Current Medications Oxycodone/ Acetaminophen (Percocet (5/ 325)) 1 tab Q4H PRN PO PAIN LEVEL 4-6; Start 07/18/16 at 11:30 Oxycodone/ Acetaminophen (Percocet (5/ 325)) 2 tab Q4H PRN PO PAIN LEVEL 7-10 Last administered on 07/24/16 21:47; Admin Dose 2 TAB; Start 07/18/16 at 11:30 Simethicone 160 mg 160 mg Q8H PRN PO DISTENSION/GAS/BLOATING Last administered on 07/19/16 20:04; Admin Dose 160 MG; Start 07/18/16 at 11:30 Oxytocin/Lactated Ringer's 500 ml @ 0 mls/hr ONCE PRN IV For Hemorrhage Management; Start 07/18/16 at 11:30 Methylergonovine Maleate (Methergine) 0.2 mg ONCE PRN IM VAGINAL BLEEDING; Start 07/18/16 at 11:30 Carboprost Tromethamine (Hemabate) 250 mcg ONCE PRN IM VAGINAL BLEEDING; Start 07/18/16 at 11:30 Misoprostol (Cytotec) 1,000 mcg ONCE PRN [place] VAGINAL BLEEDING; Start 07/18/16 at 11:30 Acetaminophen/ Hydrocodone Bitart ([place] (5/325)) 1 tab Q4H PRN PO PAIN LEVEL 1 -5 Last administered on 07/28/16 09:02; Admin Dose 1 TAB; Start 07/22/16 at 15:00 Acetaminophen/ Hydrocodone Bitart ([place] (5/325)) 2 tab Q4H PRN PO PAIN LEVEL 6 -10 Last administered on 07/25/16 09:05; Admin Dose 2 TAB; Start 07/22/16 at 15: 00 Ondansetron HCl (Zofran Inj) 4 mg Q6H PRN IV NAUSEA AND/OR VOMITING; Start 07/22 at 15:00 Docusate Sodium (Colace) 100 mg BID PO Last administered on 07/28/16 09:02; Admin Dose 100 MG; Start 07/22/16 at 15:00 Acetaminophen (Tylenol Tab) 650 mg Q4H PRN PO TEMP GREATER THAN 101F OR JONES; Start 07/22/16 at 15:00 Ascorbic Acid (Vitamin C) 1,000 mg BID PO Last administered on 07/28/16 09:03; Admin Dose 1,000 MG; Start 07/23/16 at 09:00 Ferrous Sulfate (Ferrous Sulfate (Ec)) 325 mg TID PO Last administered on 09:02; Admin Dose 325 MG; Start 07/23/16 at 09:00 Diazepam (Valium) 5 mg Q4H PRN PO MUSCLE SPASMS Last administered on 07/25/16 09:05; Admin Dose 5 MG; Start 07/22/16 at 15:00 Phenol (Cepastat Lozenge) 1 lozenge PRN PRN MT SORE THROAT; Start 07/22/16 at 15 :00 Diphenhydramine HCl (Benadryl) 50 mg Q6H PRN PO PRURITUS; Start 07/22/16 at 15: 00 Naloxone HCl (Narcan) 0.2 mg Q2M PRN IV RR 8 BREATHS/MIN OR LESS; Start at 15:00 BRET LLAMAS MD Jul 28, 2016 11:18
[2016-07-28 19:15] VITALS: BP 130/68; RESP 18
[2016-07-29 08:32] VITALS: BP 118/58; RESP 14
[2016-07-29] MEDS: FERROUS SULFATE (EC) 325 MG TAB PO SCH ×3 (09:12→20:41)
[2016-07-29] MEDS: DOCUSATE SODIUM 100 MG CAP PO SCH ×2 (09:12→20:41)
[2016-07-29] MEDS: ASCORBIC ACID 500 MG TAB PO SCH ×2 (09:14→20:41)
--- NOTE | 2016-07-29 11:20 | CONS ---
Date/Time of Note Date/Time of Note DATE: 07/29/16 TIME: 11:17 Assessment/Plan Assessment/Plan Additional Assessment/Plan 25 F with: 1. Cervical-thoracic epidural hematoma: s/p evacuation/laminectomy C4-T4 POD # 7 - f/u set up mechanic coil winding machines and NSS rec's, monitor drain. 2. Extremity weakness/numbness, 2/2 above - improved - f/u Neuro rec's, Rehab for PT needed 3. Anemia: likely 2/2 blood loss: H/H stable - monitor closely and transfuse as needed Further recommendation based on clinical course. - needs long term for rehab - [facility] - based on insurance this consult note took greater than 20 min to complete Consultation Date/Type/Reason Admit Date/Time Jul 17, 2016 at 22:30 Type of Consultation: medicine Referring Provider: NAVYA JACOB MD 24 HR Interval Summary Free Text/Dictation Patient states that her mobility and pain are improving. still with paraesthesias bilateral lower extremities. Spoke to her about the care plan. 15 minutes spent. Exam/Review of Systems Vital Signs Vitals Vital Signs Date Time Temp Pulse Resp B/P Pulse Ox O2 Delivery O2 Flow Rate FiO2 07/29/16 08:32 98.1 97 14 118/58 97 Intake and Output 07/28/16 07/28/16 07/29/16 15:00 23:00 07:00 Intake Total 720 ml 250 ml Balance 720 ml 250 ml Exam Gen Stefano: mild pain, AAOx4 HEENT: NC/AT, PERRLA, EOMI, no pharyngeal erythema, no tonsillar exudates, no lymphadenopathy, no JVD, no carotid bruits NECK: with cervical collar THORAX: symmetrical, no obvious deformities CV: S1S2, RRR, no M/G/R Lungs: CTAB no W/C/R/R Abd: soft, NT/ND, +BS, no rebound, no guarding, neg HSM EXT: no edema, no ecchymosis, no clubbing, improving movement and strength Neuro: improving function - still with slight neuropathy, numbness Psych: good mentation, alert and oriented, good mood and affect Skin: C/D/I Medications Medications Current Medications Oxycodone/ Acetaminophen (Percocet (5/ 325)) 1 tab Q4H PRN PO PAIN LEVEL 4-6; Start 07/18/16 at 11:30 Oxycodone/ Acetaminophen (Percocet (5/ 325)) 2 tab Q4H PRN PO PAIN LEVEL 7-10 Last administered on 07/24/16 21:47; Admin Dose 2 TAB; Start 07/18/16 at 11:30 Simethicone 160 mg 160 mg Q8H PRN PO DISTENSION/GAS/BLOATING Last administered on 07/19/16 20:04; Admin Dose 160 MG; Start 07/18/16 at 11:30 Oxytocin/Lactated Ringer's 500 ml @ 0 mls/hr ONCE PRN IV For Hemorrhage Management; Start 07/18/16 at 11:30 Methylergonovine Maleate (Methergine) 0.2 mg ONCE PRN IM VAGINAL BLEEDING; Start 07/18/16 at 11:30 Carboprost Tromethamine (Hemabate) 250 mcg ONCE PRN IM VAGINAL BLEEDING; Start 07/18/16 at 11:30 Misoprostol (Cytotec) 1,000 mcg ONCE PRN [place] VAGINAL BLEEDING; Start 07/18/16 at 11:30 Acetaminophen/ Hydrocodone Bitart ([place] (5/325)) 1 tab Q4H PRN PO PAIN LEVEL 1 -5 Last administered on 07/28/16 21:36; Admin Dose 1 TAB; Start 07/22/16 at 15:00 Acetaminophen/ Hydrocodone Bitart ([place] (5/325)) 2 tab Q4H PRN PO PAIN LEVEL 6 -10 Last administered on 07/25/16 09:05; Admin Dose 2 TAB; Start 07/22/16 at 15: 00 Ondansetron HCl (Zofran Inj) 4 mg Q6H PRN IV NAUSEA AND/OR VOMITING; Start 07/22 at 15:00 Docusate Sodium (Colace) 100 mg BID PO Last administered on 07/29/16 09:12; Admin Dose 100 MG; Start 07/22/16 at 15:00 Acetaminophen (Tylenol Tab) 650 mg Q4H PRN PO TEMP GREATER THAN 101F OR JONES; Start 07/22/16 at 15:00 Ascorbic Acid (Vitamin C) 1,000 mg BID PO Last administered on 07/29/16 09:14 ; Admin Dose 1,000 MG; Start 07/23/16 at 09:00 Ferrous Sulfate (Ferrous Sulfate (Ec)) 325 mg TID PO Last administered on 09:12; Admin Dose 325 MG; Start 07/23/16 at 09:00 Diazepam (Valium) 5 mg Q4H PRN PO MUSCLE SPASMS Last administered on 07/25/16 09:05; Admin Dose 5 MG; Start 07/22/16 at 15:00 Phenol (Cepastat Lozenge) 1 lozenge PRN PRN [place] SORE THROAT; Start 07/22/16 at 15 :00 Diphenhydramine HCl (Benadryl) 50 mg Q6H PRN PO PRURITUS; Start 07/22/16 at 15: 00 Naloxone HCl (Narcan) 0.2 mg Q2M PRN IV RR 8 BREATHS/MIN OR LESS; Start at 15:00 BRET LLAMAS MD Jul 29, 2016 11:20
[2016-07-29 12:30] LABS: ADD SCAN DIFF NO
[2016-07-29 12:37] LABS: BASOPHIL # 0.1 10^3/ul (0.0-0.1); BASOPHILS % 0.4 % (0.0-2.0); EOSINOPHILS # 0.3 10^3/ul (0.0-0.5); EOSINOPHILS % 2.9 % (0.0-7.0); HEMATOCRIT 34.8 % (37.0-47.0); HEMOGLOBIN 11.9 g/dl (12.0-16.0); LYMPHOCYTES # 2.1 10^3/ul (0.8-2.9); LYMPHOCYTES % 18.3 % (15.0-51.0); MEAN CORPUSCULAR HEMOGLOBIN 31.3 pg (29.0-33.0); MEAN CORPUSCULAR HGB CONC 34.2 g/dl (32.0-37.0); MEAN CORPUSCULAR VOLUME 91.6 fl (82.0-101.0); MEAN PLATELET VOLUME 8.8 fl (7.4-10.4); MONOCYTES % 8.2 % (0.0-11.0); NEUTROPHILS % 69.4 % (39.0-77.0); PLATELET COUNT 479 10^3/UL (140-415); RED CELL DISTRIBUTION WIDTH 13.2 % (11.5-14.5); WHITE BLOOD COUNT 11.5 10^3/ul (4.8-10.8)
[2016-07-29 20:07] VITALS: BP 127/72; PULSE 78; RESP 18
[2016-07-30 07:36] VITALS: BP 124/67; RESP 16
[2016-07-30] MEDS: FERROUS SULFATE (EC) 325 MG TAB PO SCH ×3 (08:49→20:20)
[2016-07-30] MEDS: DOCUSATE SODIUM 100 MG CAP PO SCH ×2 (08:49→20:20)
[2016-07-30] MEDS: ASCORBIC ACID 500 MG TAB PO SCH ×2 (08:49→20:20)
--- NOTE | 2016-07-30 10:09 | PN ---
Date/Time of Note Date/Time of Note DATE: 07/30/16 TIME: 10:07 Assessment/Plan VTE Prophylaxis VTE Prophylaxis Intervention: SCD's Lines/Catheters IV Catheter Type (from Nrs): Peripheral IV Urinary Cath still in place: No Assessment/Plan Assessment/Plan 25 F with: 1. 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 2. Extremity weakness/numbness, 2/2 above - improved - f/u Neuro rec's, Rehab for PT needed 3. Anemia: likely 2/2 blood loss: H/H stable - monitor closely and transfuse as needed Further recommendation based on clinical course. - needs long-term for rehab - [facility] - based on insurance - other SNF this consult note took greater than 20 min to complete Subjective 24 Hr Interval Summary Free Text/Dictation Patient is doing better. No overnight events. Spoke to the nurse about the care plan. 15 minutes spent. Exam/Review of Systems Vital Signs Vitals Vital Signs Date Time Temp Pulse Resp B/P Pulse Ox O2 Delivery O2 Flow Rate FiO2 07/30/16 07:36 99.3 107 16 124/67 95 07/29/16 20:07 Room Air Intake and Output 07/29/16 07/29/16 07/30/16 15:00 23:00 07:00 Intake Total 1200 ml 1200 ml Output Total 1000 ml Balance 1200 ml 200 ml Exam Gen Stefano: mild pain, AAOx4 HEENT: NC/AT, PERRLA, EOMI, no pharyngeal erythema, no tonsillar exudates, no lymphadenopathy, no JVD, no carotid bruits NECK: with cervical collar THORAX: symmetrical, no obvious deformities CV: S1S2, RRR, no M/G/R Lungs: CTAB no W/C/R/R Abd: soft, NT/ND, +BS, no rebound, no guarding, neg HSM EXT: no edema, no ecchymosis, no clubbing, improving movement and strength Neuro: improving function - still with slight neuropathy, numbness Psych: good mentation, alert and oriented, good mood and affect Skin: C/D/I Results Result Diagram: 07/29/16 1200 Results 24 hrs Laboratory Tests Test 07/29/16 12:00 Basophils # 0.1 Basophils % 0.4 Eosinophils # 0.3 Eosinophils % 2.9 Hematocrit 34.8 L Hemoglobin 11.9 L Lymphocytes # 2.1 Lymphocytes % 18.3 Mean Corpuscular Hemoglobin 31.3 Mean Corpuscular Hemoglobin Concent 34.2 Mean Corpuscular Volume 91.6 Mean Platelet Volume 8.8 # Monocytes # 1.0 H Monocytes % 8.2 Neutrophils # 8.0 H Neutrophils % 69.4 Nucleated Red Blood Cells # 0.0 Nucleated Red Blood Cells % 0.0 Platelet Count 479 H Red Blood Count 3.80 L Red Cell Distribution Width 13.2 White Blood Count 11.5 H Medications Medications Current Medications Oxycodone/ Acetaminophen (Percocet (5/ 325)) 1 tab Q4H PRN PO PAIN LEVEL 4-6; Start 07/18/16 at 11:30 Oxycodone/ Acetaminophen (Percocet (5/ 325)) 2 tab Q4H PRN PO PAIN LEVEL 7-10 Last administered on 07/24/16 21:47; Admin Dose 2 TAB; Start 07/18/16 at 11:30 Simethicone 160 mg 160 mg Q8H PRN PO DISTENSION/GAS/BLOATING Last administered on 07/19/16 20:04; Admin Dose 160 MG; Start 07/18/16 at 11:30 Oxytocin/Lactated Ringer's 500 ml @ 0 mls/hr ONCE PRN IV For Hemorrhage Management; Start 07/18/16 at 11:30 Methylergonovine Maleate (Methergine) 0.2 mg ONCE PRN IM VAGINAL BLEEDING; Start 07/18/16 at 11:30 Carboprost Tromethamine (Hemabate) 250 mcg ONCE PRN IM VAGINAL BLEEDING; Start 07/18/16 at 11:30 Misoprostol (Cytotec) 1,000 mcg ONCE PRN [place] VAGINAL BLEEDING; Start 07/18/16 at 11:30 Acetaminophen/ Hydrocodone Bitart ([place] (5/325)) 1 tab Q4H PRN PO PAIN LEVEL 1 -5 Last administered on 07/28/16 21:36; Admin Dose 1 TAB; Start 07/22/16 at 15:00 Acetaminophen/ Hydrocodone Bitart ([place] (5/325)) 2 tab Q4H PRN PO PAIN LEVEL 6 -10 Last administered on 07/25/16 09:05; Admin Dose 2 TAB; Start 07/22/16 at 15: 00 Ondansetron HCl (Zofran Inj) 4 mg Q6H PRN IV NAUSEA AND/OR VOMITING; Start 07/22 at 15:00 Docusate Sodium (Colace) 100 mg BID PO Last administered on 07/30/16 08:49; Admin Dose 100 MG; Start 07/22/16 at 15:00 Acetaminophen (Tylenol Tab) 650 mg Q4H PRN PO TEMP GREATER THAN 101F OR JONES; Start 07/22/16 at 15:00 Ascorbic Acid (Vitamin C) 1,000 mg BID PO Last administered on 07/30/16 08:49 ; Admin Dose 1,000 MG; Start 07/23/16 at 09:00 Ferrous Sulfate (Ferrous Sulfate (Ec)) 325 mg TID PO Last administered on 08:49; Admin Dose 325 MG; Start 07/23/16 at 09:00 Diazepam (Valium) 5 mg Q4H PRN PO MUSCLE SPASMS Last administered on 07/25/16 09:05; Admin Dose 5 MG; Start 07/22/16 at 15:00 Phenol (Cepastat Lozenge) 1 lozenge PRN PRN [place] SORE THROAT; Start 07/22/16 at 15 :00 Diphenhydramine HCl (Benadryl) 50 mg Q6H PRN PO PRURITUS; Start 07/22/16 at 15: 00 Naloxone HCl (Narcan) 0.2 mg Q2M PRN IV RR 8 BREATHS/MIN OR LESS; Start at 15:00 BRET LLAMAS MD Jul 30, 2016 10:08
[2016-07-30 13:20] VITALS: BP 122/68; PULSE 99; RESP 18
[2016-07-30] MEDS: ACETAMINOPHEN 325 MG TAB PO PRN ×2 (13:24→21:30)
[2016-07-30 17:32] VITALS: BP 112/64; PULSE 94; RESP 18
[2016-07-30 19:42] VITALS: BP 114/64; PULSE 72; RESP 18
[2016-07-30 23:58] VITALS: BP 118/64; PULSE 78; RESP 18
[2016-07-31] MEDS: ACETAMINOPHEN 325 MG TAB PO PRN ×2 (05:33→18:24)
[2016-07-31 05:36] VITALS: BP 122/72; PULSE 88; RESP 19
[2016-07-31 07:32] VITALS: BP 106/60; RESP 18
[2016-07-31] MEDS: FERROUS SULFATE (EC) 325 MG TAB PO SCH ×3 (09:29→21:40)
[2016-07-31] MEDS: ASCORBIC ACID 500 MG TAB PO SCH ×2 (09:29→21:40)
[2016-07-31] MEDS: DOCUSATE SODIUM 100 MG CAP PO SCH ×2 (09:29→21:40)
[2016-07-31] MEDS: HYDROCODONE/APAP (5/325) TAB PO PRN (09:32)
--- NOTE | 2016-07-31 10:29 | PN ---
Date/Time of Note Date/Time of Note DATE: 07/31/16 TIME: 10:27 Assessment/Plan VTE Prophylaxis VTE Prophylaxis Intervention: contraindicated VTE Contraindication Reason: bleeding Lines/Catheters IV Catheter Type (from Nrsg): Saline Lock Urinary Cath still in place: No Assessment/Plan Assessment/Plan 25 F with: 1. 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 2. Extremity weakness/numbness, 2/2 above - improved - f/u Neuro rec's, Rehab for PT needed 3. Anemia: likely 2/2 blood loss: H/H stable - monitor closely and transfuse as needed Further recommendation based on clinical course. - needs senior living for rehab - [facility] - based on insurance - other SNF's this consult note took greater than 20 min to complete Subjective 24 Hr Interval Summary Free Text/Dictation Patient had no overnight events. She is complaining of right hip pain/ stiffness. Spoke to her in regards to the causes. spoke to her about the care plan. 15 minutes spent. Exam/Review of Systems Vital Signs Vitals Vital Signs Date Time Temp Pulse Resp B/P Pulse Ox O2 Delivery O2 Flow Rate FiO2 07/31/16 07:32 99.6 129 18 106/60 97 07/31/16 05:36 Room Air Intake and Output 07/30/16 07/30/16 07/31/16 15:00 23:00 07:00 Intake Total 1400 ml 1200 ml Output Total 950 ml Balance 1400 ml 250 ml Exam Gen Stefano: mild right hip pain, AAOx4 HEENT: NC/AT, PERRLA, EOMI, no pharyngeal erythema, no tonsillar exudates, no lymphadenopathy, no JVD, no carotid bruits NECK: with cervical collar THORAX: symmetrical, no obvious deformities CV: S1S2, RRR, no M/G/R Lungs: CTAB no W/C/R/R Abd: soft, NT/ND, +BS, no rebound, no guarding, neg HSM EXT: no edema, no ecchymosis, no clubbing, improving movement and strength Neuro: improving function - still with slight neuropathy, numbness Psych: good mentation, alert and oriented, good mood and affect Skin: C/D/I Results Result Diagram: 07/29/16 1200 Medications Medications Current Medications Oxycodone/ Acetaminophen (Percocet (5/ 325)) 1 tab Q4H PRN PO PAIN LEVEL 4-6; Start 07/18/16 at 11:30 Oxycodone/ Acetaminophen (Percocet (5/ 325)) 2 tab Q4H PRN PO PAIN LEVEL 7-10 Last administered on 07/24/16 21:47; Admin Dose 2 TAB; Start 07/18/16 at 11:30 Simethicone 160 mg 160 mg Q8H PRN PO DISTENSION/GAS/BLOATING Last administered on 07/19/16 20:04; Admin Dose 160 MG; Start 07/18/16 at 11:30 Oxytocin/Lactated Ringer's 500 ml @ 0 mls/hr ONCE PRN IV For Hemorrhage Management; Start 07/18/16 at 11:30 Methylergonovine Maleate (Methergine) 0.2 mg ONCE PRN IM VAGINAL BLEEDING; Start 07/18/16 at 11:30 Carboprost Tromethamine (Hemabate) 250 mcg ONCE PRN IM VAGINAL BLEEDING; Start 07/18/16 at 11:30 Misoprostol (Cytotec) 1,000 mcg ONCE PRN [place] VAGINAL BLEEDING; Start 07/18/16 at 11:30 Acetaminophen/ Hydrocodone Bitart ([place] (5/325)) 1 tab Q4H PRN PO PAIN LEVEL 1 -5 Last administered on 07/31/16 09:32; Admin Dose 1 TAB; Start 07/22/16 at 15: 00 Acetaminophen/ Hydrocodone Bitart ([place] (5/325)) 2 tab Q4H PRN PO PAIN LEVEL 6 -10 Last administered on 07/25/16 09:05; Admin Dose 2 TAB; Start 07/22/16 at 15: 00 Ondansetron HCl (Zofran Inj) 4 mg Q6H PRN IV NAUSEA AND/OR VOMITING; Start 07/22 at 15:00 Docusate Sodium (Colace) 100 mg BID PO Last administered on 07/31/16 09:29; Admin Dose 100 MG; Start 07/22/16 at 15:00 Acetaminophen (Tylenol Tab) 650 mg Q4H PRN PO TEMP GREATER THAN 101F OR JONES Last administered on 07/31/16 05:33; Admin Dose 650 MG; Start 07/22/16 at 15:00 Ascorbic Acid (Vitamin C) 1,000 mg BID PO Last administered on 07/31/16 09:29 ; Admin Dose 1,000 MG; Start 07/23/16 at 09:00 Ferrous Sulfate (Ferrous Sulfate (Ec)) 325 mg TID PO Last administered on 09:29; Admin Dose 325 MG; Start 07/23/16 at 09:00 Diazepam (Valium) 5 mg Q4H PRN PO MUSCLE SPASMS Last administered on 07/25/16 09:05; Admin Dose 5 MG; Start 07/22/16 at 15:00 Phenol (Cepastat Lozenge) 1 lozenge PRN PRN MT SORE THROAT; Start 07/22/16 at 15 :00 Diphenhydramine HCl (Benadryl) 50 mg Q6H PRN PO PRURITUS; Start 07/22/16 at 15: 00 Naloxone HCl (Narcan) 0.2 mg Q2M PRN IV RR 8 BREATHS/MIN OR LESS; Start at 15:00 BRET LLAMAS MD Jul 31, 2016 10:28
[2016-07-31] MEDS ORDERED: VANCOMYCIN IV PER PHARMACY XX SCH (18:30)
[2016-07-31] MEDS: PIPER-TAZO 3.375 GM IV (PMX) 100 ML IVPB SCH (19:29)
[2016-07-31 19:57] LABS: CREATININE 0.89 mg/dl (0.44-1.00)
[2016-07-31 19:58] VITALS: BP 102/50; RESP 20
[2016-07-31] MEDS ORDERED: VANCOMYCIN 1.25 GM in SOD CHLORIDE 0.9% 250 ML IVPB ONE (20:00)
[2016-08-01 00:15] VITALS: BP 106/54; PULSE 138; RESP 20
[2016-08-01] MEDS: PIPER-TAZO 3.375 GM IV (PMX) 100 ML IVPB SCH ×3 (00:31→12:22)
[2016-08-01] MEDS: ACETAMINOPHEN 325 MG TAB PO PRN ×3 (00:31→21:45)
[2016-08-01 04:30] VITALS: BP 94/46; PULSE 130; RESP 18
[2016-08-01 05:03] LABS: EOSINOPHILS # 0.1 10^3/ul (0.0-0.5); EOSINOPHILS % 0.8 % (0.0-7.0); HEMATOCRIT 31.4 % (37.0-47.0); HEMOGLOBIN 10.8 g/dl (12.0-16.0); LYMPHOCYTES # 1.1 10^3/ul (0.8-2.9); LYMPHOCYTES % 6.3 % (15.0-51.0); MEAN CORPUSCULAR HEMOGLOBIN 31.6 pg (29.0-33.0); MEAN CORPUSCULAR HGB CONC 34.5 g/dl (32.0-37.0); MEAN CORPUSCULAR VOLUME 91.6 fl (82.0-101.0); MEAN PLATELET VOLUME 7.3 fl (7.4-10.4); MONOCYTE # 0.4 10^3/ul (0.3-0.9); MONOCYTES % 2.5 % (0.0-11.0); NEUTROPHILS % 90.4 % (39.0-77.0); PLATELET COUNT 261 10^3/UL (140-440); RED BLOOD COUNT 3.43 10^6/ul (4.20-5.40); RED CELL DISTRIBUTION WIDTH 13.4 % (11.5-14.5); UNCORRECTED WBC 16.6 10^3/ul (4.8-10.8); WHITE BLOOD COUNT 16.6 10^3/ul (4.8-10.8)
[2016-08-01 05:14] LABS: POTASSIUM 3.8 mmol/L (3.5-5.1)
[2016-08-01 05:16] LABS: CREATININE 1.11 mg/dl (0.44-1.00)
[2016-08-01 05:17] LABS: CALCIUM 8.6 mg/dl (8.4-10.2)
[2016-08-01 05:41] LABS: CONDITION 1; LH ANALYZER COMMENTS 1; SUSPECT 1
[2016-08-01 07:30] VITALS: BP 103/58; RESP 18
[2016-08-01] MEDS ORDERED: VANCOMYCIN 1.25 GM in SOD CHLORIDE 0.9% 250 ML IVPB SCH (08:00)
[2016-08-01 08:14] VITALS: BP 103/58; PULSE 127; RESP 20
[2016-08-01] MEDS: DOCUSATE SODIUM 100 MG CAP PO SCH ×2 (09:23→20:03)
[2016-08-01] MEDS: FERROUS SULFATE (EC) 325 MG TAB PO SCH ×3 (09:23→20:03)
[2016-08-01] MEDS: ASCORBIC ACID 500 MG TAB PO SCH ×2 (09:23→20:03)
[2016-08-01] MEDS: HYDROCODONE/APAP (5/325) TAB PO PRN (09:24)
[2016-08-01] MEDS ORDERED: VANCOMYCIN 750 MG in SOD CHLORIDE 0.9% 150 ML IVPB SCH (10:00)
--- NOTE | 2016-08-01 11:00 | PN ---
Date/Time of Note Date/Time of Note DATE: 08/01/16 TIME: 10:57 Assessment/Plan VTE Prophylaxis VTE Prophylaxis Intervention: contraindicated VTE Contraindication Reason: bleeding Lines/Catheters IV Catheter Type (from Nrsg): Saline Lock Urinary Cath still in place: No Assessment/Plan Chief Complaint/Hosp Course Assessment/Plan: 25 F with: 1. 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 2. Extremity weakness/numbness, 2/2 above - improved - f/u Neuro rec's, Rehab for PT needed 3. Anemia: likely 2/2 blood loss: H/H stable - monitor closely and transfuse as needed 4. Sepsis: + fevers, + blood cx 2/2 for gram (-) rods - continue tylenol, start IVF's, abx, get ID consult. - consider reimaging neck or pelvic rosalino to r/o possible abscess/infx source as well. Further recommendation based on clinical course. - needs [facility] for rehab - [facility] - based on insurance - other SNF's Problems: Subjective 24 Hr Interval Summary Free Text/Dictation Pt with + neck pain and fevers this AM. Exam/Review of Systems Vital Signs Vitals Vital Signs Date Time Temp Pulse Resp B/P Pulse Ox O2 Delivery O2 Flow Rate FiO2 08/01/16 08:14 100.4 127 20 103/58 95 08/01/16 04:30 Room Air Intake and Output 07/31/16 07/31/16 08/01/16 15:00 23:00 07:00 Intake Total 1400 ml 1050 ml Balance 1400 ml 1050 ml Exam Gen Stefano: mild distress, AAOx4 HEENT: NC/AT, PERRLA, EOMI NECK: with cervical collar THORAX: symmetrical, no obvious deformities CV: S1S2, RRR, no M/G/R Lungs: CTAB no W/C/R/R Abd: soft, NT/ND, +BS, no rebound, no guarding, neg HSM EXT: no edema, no ecchymosis, no clubbing, improving movement and strength Neuro: improving function - still with slight neuropathy, numbness Psych: good mentation, alert and oriented, good mood and affect Skin: C/D/I Results Result Diagram: 08/01/16 0413 08/01/16 0413 Results 24 hrs Laboratory Tests Test 07/31/16 19:15 08/01/16 04:13 Blood Urea Nitrogen 20 21 H Creatinine 0.89 1.11 H Anion Gap 14 Basophils # 0.0 Basophils % 0.0 Blood Morphology Comment Calcium Level 8.6 Carbon Dioxide Level 24 Chloride Level 102 Eosinophils # 0.1 Eosinophils % 0.8 Glucose Level 151 Hematocrit 31.4 L Hemoglobin 10.8 L Lymphocytes # 1.1 Lymphocytes % 6.3 L Mean Corpuscular Hemoglobin 31.6 Mean Corpuscular Hemoglobin Concent 34.5 Mean Corpuscular Volume 91.6 Mean Platelet Volume 7.3 L Monocytes # 0.4 Monocytes % 2.5 Neutrophils # 15.0 H Neutrophils % 90.4 H Nucleated Red Blood Cells # 0.0 Nucleated Red Blood Cells % 0.0 Platelet Count 261 Potassium Level 3.8 Red Blood Count 3.43 L Red Cell Distribution Width 13.4 Sodium Level 136 White Blood Count 16.6 #H Medications Medications Current Medications Oxycodone/ Acetaminophen (Percocet (5/ 325)) 1 tab Q4H PRN PO PAIN LEVEL 4-6; Start 07/18/16 at 11:30 Oxycodone/ Acetaminophen (Percocet (5/ 325)) 2 tab Q4H PRN PO PAIN LEVEL 7-10 Last administered on 07/24/16 21:47; Admin Dose 2 TAB; Start 07/18/16 at 11:30 Simethicone 160 mg 160 mg Q8H PRN PO DISTENSION/GAS/BLOATING Last administered on 07/19/16 20:04; Admin Dose 160 MG; Start 07/18/16 at 11:30 Oxytocin/Lactated Ringer's 500 ml @ 0 mls/hr ONCE PRN IV For Hemorrhage Management; Start 07/18/16 at 11:30 Methylergonovine Maleate (Methergine) 0.2 mg ONCE PRN IM VAGINAL BLEEDING; Start 07/18/16 at 11:30 Carboprost Tromethamine (Hemabate) 250 mcg ONCE PRN IM VAGINAL BLEEDING; Start 07/18/16 at 11:30 Misoprostol (Cytotec) 1,000 mcg ONCE PRN [place] VAGINAL BLEEDING; Start 07/18/16 at 11:30 Acetaminophen/ Hydrocodone Bitart ([place] (5/325)) 1 tab Q4H PRN PO PAIN LEVEL 1 -5 Last administered on 08/01/16 09:24; Admin Dose 1 TAB; Start 07/22/16 at 15: 00 Acetaminophen/ Hydrocodone Bitart ([place] (5/325)) 2 tab Q4H PRN PO PAIN LEVEL 6 -10 Last administered on 07/25/16 09:05; Admin Dose 2 TAB; Start 07/22/16 at 15: 00 Ondansetron HCl (Zofran Inj) 4 mg Q6H PRN IV NAUSEA AND/OR VOMITING; Start 07/22 at 15:00 Docusate Sodium (Colace) 100 mg BID PO Last administered on 08/01/16 09:23; Admin Dose 100 MG; Start 07/22/16 at 15:00 Acetaminophen (Tylenol Tab) 650 mg Q4H PRN PO TEMP GREATER THAN 101F OR JONES Last administered on 08/01/16 00:31; Admin Dose 650 MG; Start 07/22/16 at 15:00 Ascorbic Acid (Vitamin C) 1,000 mg BID PO Last administered on 08/01/16 09:23 ; Admin Dose 1,000 MG; Start 07/23/16 at 09:00 Ferrous Sulfate (Ferrous Sulfate (Ec)) 325 mg TID PO Last administered on 09:23; Admin Dose 325 MG; Start 07/23/16 at 09:00 Diazepam (Valium) 5 mg Q4H PRN PO MUSCLE SPASMS Last administered on 07/25/16 09:05; Admin Dose 5 MG; Start 07/22/16 at 15:00 Phenol (Cepastat Lozenge) 1 lozenge PRN PRN MT SORE THROAT; Start 07/22/16 at 15 :00 Diphenhydramine HCl (Benadryl) 50 mg Q6H PRN PO PRURITUS Last administered on 00:34; Admin Dose 50 MG; Start 07/22/16 at 15:00 Naloxone HCl 0.2 mg 0.2 mg Q2M PRN IV RR 8 BREATHS/MIN OR LESS; Start 07/22/16 at 15:00 Piperacillin Sod/ Tazobactam Sod 100 ml @ 200 mls/hr Q6 IVPB Last administered on 08/01/16 05:55; Admin Dose 200 MLS/HR; Start 07/31/16 at 19:00 Vancomycin HCl/ Sodium Chloride (Vancocin/NS) 150 ml @ 75 mls/hr Q12H IVPB Last administered on 08/01/16 10:01; Admin Dose 75 MLS/HR; Start 08/01/16 at 10 :00 Miscellaneous Information VANCOMYCIN TROUGH AT 0900 ONCE ONCE XX ; Start 08/02/16 at 09:00; Stop 08/02/16 at 09:01 Sodium Chloride (NS) 1,000 ml @ 75 mls/hr [id number] IV ; Start 08/01/16 at 11:00 THALIA CARRASQUILLO Aug 01, 2016 11:00
[2016-08-01] MEDS: SOD CHLORIDE 0.9% 1,000 ML IV SCH (12:22)
--- NOTE | 2016-08-01 18:43 | PN ---
Date/Time of Note Date/Time of Note DATE: 08/01/16 TIME: 18:37 Assessment/Plan Lines/Catheters IV Catheter Type (from Nrs): Saline Lock Barros in Place (from Nrs): No Assessment/Plan Chief Complaint/Hosp Course POD #11 s/p C4-T4 laminectomy for epidural hematoma fevers with sepsis. cervical incision does not appear to show evidence of infection and clinically not complaining of worsening symptoms. Doubt wound infection and somewhat wary of imaging given difficulties in interpretation of findings given underlying lesion. Still, rec. MRI Cervical spine w/wo contrast to r/o abscess. Problems: Subjective 24 Hr Interval Summary Patient reportedly spiking fevers since 07/30. Denies worsening neck pain or incisional pain; actually reports that it continues to improve. Feels that she continues to get stronger but remains quadriparetic. Main complain is of right lower quadrant tenderness and pain. Exam/Review of Systems Vital Signs Vitals Vital Signs Date Time Temp Pulse Resp B/P Pulse Ox O2 Delivery O2 Flow Rate FiO2 08/01/16 15:00 103.0 08/01/16 08:14 127 20 103/58 95 08/01/16 04:30 Room Air Intake and Output 07/31/16 07/31/16 08/01/16 15:00 23:00 07:00 Intake Total 1400 ml 1050 ml Balance 1400 ml 1050 ml Exam Constitutional: alert, oriented Neurological: other (unchanged.) Skin: other (incision was dressed with Aquacel dressing. Removed and examed. No redness, swelling, drainage, tenderness or dehscience. Redressed.) Results Free Text/Dictation blood cx GNR x 2 Result Diagram: 08/01/16 0413 08/01/16 0413 KAVYA LYNN MD Aug 01, 2016 18:43
--- NOTE | 2016-08-01 19:40 | CONS ---
DATE OF ADMISSION: 07/17/2016 DATE OF CONSULTATION: 08/01/2016 TYPE OF CONSULTATION: Infectious disease. REASON FOR CONSULTATION: Antibiotic management. HISTORY OF PRESENT ILLNESS: Naomi Dumas is a 25-year-old female, 1, para 0. She had a 38-week and 4 days of gestation ____. She presented with numbness in her legs and a refugio for the past week with decreased movement. She was admitted for observation and underwent an elective section. HOSPITAL COURSE: The patient had a primary low transverse . She developed cervical, thora cic epidural hematoma status post evacuation and laminectomy C4 through T4. It is postop day #10 no w. She has extremity weakness and numbness, which is improved. Rehabilitation for PT needed. Anem ia, likely secondary to blood loss. Further recommendations, possibly [place]. Her white count on the 10th was 11.5, H and H of 11.9 and 34.8, platelet count 479,000. Today again, she had a cervical thoracic epidural hematoma status post evacuation. She has still extremity weakness and numbness. She has sepsis and fever. Blood cultures 2/2 positive for gram-negative rods. They are considering reimaging the neck or pelvic areas to rule out possible abscess and infectious source a s well. Today, her white count is 16.6, H and H of 10.8 and 31.4, platelet count 261,000. BUN and creatinine 21/1.1. PHYSICAL EXAMINATION: GENERAL: The patient is a well-developed, well-nourished female who is alert, responsive, in some m ild distress. VITAL SIGNS: Stable. Actually, her T-max is 102.9. SKIN: Without generalized rash. HEENT: Within normal limits. NECK: Supple. LYMPH NODES: None palpable. CHEST: Decreased breath sounds at the bases. HEART: Without murmur or gallop. ABDOMEN: Soft, nontender without organosplenomegaly or masses. EXTREMITIES: Without cyanosis, clubbing, or edema. RECTAL AND GENITAL: Deferred. NEUROLOGIC: Described as improving function. She still has some neuropathy and some numbness. IMAGING: With regards to her imaging, as noted she had imaging done early on in her course, which s howed an acute posterior epidural hematoma extending from the C4 through the inferior most axial jeannie ge evaluated at the T2 level, measuring approximately 8.3 cm superior to inferior. She had cord com pression and severe central canal stenosis at C4-C5 through T2 with straining of the normal cervical lordosis. The surgery was done by Dr. Paul Avila on the , in which he did a cervical and tho racic laminectomy C4 through C7 and T1 through T4 for evacuation of epidural hematoma. Presently, t he patient is on vancomycin and Zosyn. Blood cultures are growing gram-negative rods. On the , she had Pseudomonas aeruginosa in the urine, only, 10,000 to 20,000 units, and sensitive to everyth ing that was tested on the panel. So, at this point, she does not need the vancomycin. I am going to switch her to imipenem and repeat blood cultures. I will dictate my findings to the hospitalist and to the aforementioned Dr. Avila and Dr. Berg, neurology. Dictated By: MANNY CAMPBELL MD, JD/BEE Conf#: [id number] DID#: [id number] CC: NAVYA JACOB MD;*EndCC*
[2016-08-01 20:18] VITALS: BP 118/68; PULSE 72; RESP 18
[2016-08-01] MEDS: IMIPENEM-CILAST 500MG IV (PMX) 100 ML IVPB SCH (21:39)
[2016-08-02] MEDS: SOD CHLORIDE 0.9% 1,000 ML IV SCH ×2 (00:46→13:43)
[2016-08-02] MEDS: IMIPENEM-CILAST 500MG IV (PMX) 100 ML IVPB SCH ×3 (05:35→20:24)
[2016-08-02] MEDS: ACETAMINOPHEN 325 MG TAB PO PRN ×3 (05:36→20:30)
[2016-08-02 06:03] LABS: BASOPHILS % 0.1 % (0.0-2.0); EOSINOPHILS # 0.2 10^3/ul (0.0-0.5); EOSINOPHILS % 1.9 % (0.0-7.0); HEMATOCRIT 28.5 % (37.0-47.0); HEMOGLOBIN 9.8 g/dl (12.0-16.0); LYMPHOCYTES # 1.1 10^3/ul (0.8-2.9); LYMPHOCYTES % 8.9 % (15.0-51.0); MEAN CORPUSCULAR HEMOGLOBIN 31.7 pg (29.0-33.0); MEAN CORPUSCULAR HGB CONC 34.5 g/dl (32.0-37.0); MEAN CORPUSCULAR VOLUME 91.8 fl (82.0-101.0); MEAN PLATELET VOLUME 8.1 fl (7.4-10.4); MONOCYTE # 0.6 10^3/ul (0.3-0.9); MONOCYTES % 5.2 % (0.0-11.0); NEUTROPHIL # 10.2 10^3/ul (1.6-7.5); NEUTROPHILS % 83.9 % (39.0-77.0); PLATELET COUNT 192 10^3/UL (140-440); RED BLOOD COUNT 3.11 10^6/ul (4.20-5.40); RED CELL DISTRIBUTION WIDTH 13.7 % (11.5-14.5); UNCORRECTED WBC 12.1 10^3/ul (4.8-10.8); WHITE BLOOD COUNT 12.1 10^3/ul (4.8-10.8)
[2016-08-02 06:27] LABS: POTASSIUM 3.8 mmol/L (3.5-5.1)
[2016-08-02 06:30] LABS: CREATININE 0.94 mg/dl (0.44-1.00)
[2016-08-02 06:31] LABS: CALCIUM 8.1 mg/dl (8.4-10.2)
[2016-08-02 06:32] LABS: CONDITION 1
[2016-08-02 07:00] VITALS: BP 121/58; RESP 20
[2016-08-02] MEDS: FERROUS SULFATE (EC) 325 MG TAB PO SCH ×3 (09:17→20:23)
[2016-08-02] MEDS: DOCUSATE SODIUM 100 MG CAP PO SCH ×2 (09:17→20:24)
[2016-08-02] MEDS: ASCORBIC ACID 500 MG TAB PO SCH ×2 (09:17→20:23)
--- NOTE | 2016-08-02 10:05 | RADRPT ---
PROCEDURE: MR Cervical Spine contrast. CLINICAL INDICATION: Epidural hematoma. Postoperative. TECHNIQUE: Multiplanar multisequence MRI of the cervical spine was performed before and following t he intravenous administration of 10 cc of Magnevist. COMPARISON: MRI of the cervical spine with and without contrast from July 21, 2016. FINDINGS: The patient is status post interval bilateral C4 to T4 laminectomies for decompression of previous n oted dorsal cervical thoracic epidural hematoma. There is resolution of previous noted dorsal epidu ral hematoma without abnormal enhancement within this region. There is resolution of multilevel spi nal canal stenosis and spinal cord impingement as noted on prior MRI. Within the subcutaneous soft tissues from the C4 to the T1 level posteriorly there is new peripheral enhancing linear subcutaneou s fluid which extends to the skin surface which likely represents a postoperative seroma which exten ds to the dorsal dura. There is normal cervical lordosis. The vertebral body heights are maintained. There is normal alignment. There is no destructive osseous lesion.There is no abnormal bone marrow edema. There is disk desiccation and C3-C4 to C5-C6 with preservation of disk height. The spinal cord is normal in caliber. The spinal cord is normal in signal. There is no abnormal spin al cord enhancement. C2-C3 : There is no disc herniation, spinal canal, or foraminal stenosis. There is mild left facet a rthropathy. C3-C4 : There is no disc herniation, spinal canal, or foraminal stenosis. There is mild bilateral fa cet arthropathy. C4-C5 : There is no disc herniation, spinal canal, or foraminal stenosis. C5-C6 : There is no disc herniation, spinal canal, or foraminal stenosis. C6-C7 : There is no disc herniation, spinal canal, or foraminal stenosis. C7-T1 : There is no disc herniation, spinal canal, or foraminal stenosis. Postoperative changes are noted within the paraspinal musculature from the C3 to the T4 levels. IMPRESSION: 1. Interval bilateral C4-T4 laminectomies for decompression of previous noted long segment dorsal c ervical thoracic epidural hematoma. There is resolution of multilevel spinal canal stenosis and spi nal cord impingement as noted on prior MRI. There is a dorsal subcutaneous peripheral enhancing flui d collection extending to the skin surface which likely represents a postoperative seroma. 2. No abnormal bone marrow edema. 3. No abnormal spinal cord enhancement. Further findings as detailed above. RPTAT: PP .Miguel Duncan MD, MD Date Time Electronically viewed and signed by .Miguel Duncan MD, MD on 08/02/2016 10:04 .F/
--- NOTE | 2016-08-02 11:45 | PN ---
Date/Time of Note Date/Time of Note DATE: 08/02/16 TIME: 11:35 Assessment/Plan VTE Prophylaxis VTE Prophylaxis Intervention: contraindicated VTE Contraindication Reason: bleeding Lines/Catheters IV Catheter Type (from Nrs): Peripheral IV Urinary Cath still in place: No Assessment/Plan Chief Complaint/Hosp Course Assessment/Plan: 25 F with: 1. Cervical-thoracic epidural hematoma: s/p evacuation/laminectomy C4-T4 POD # 11 - MRI C spine yesterday showed: resolution of multilevel spinal canal stenosis and spinal cord impingement as noted on prior MRI. There is a dorsal subcutaneous peripheral enhancing fluid collection extending to the skin surface which likely represents a postoperative seroma. - f/u developer advocate and NSS rec's, monitor drain. 2. Extremity weakness/numbness, 2/2 above - improved - f/u Neuro rec's, Rehab for PT needed 3. Anemia: likely 2/2 blood loss: H/H stable - monitor closely and transfuse as needed 4. Sepsis: + fevers, + blood cx 2/2 for gram (-) rods. MRI results above of C spine noted. - continue tylenol, IVF's, abx, f/u ID consult rec's - will get Ct A/P as well to r/o possible abscess/infx source as well. Further recommendation based on clinical course. - needs [facility] for rehab - [facility] - based on insurance - other SNF's Problems: Subjective 24 Hr Interval Summary Free Text/Dictation Pt still with fevers, some + lower abd pain. Exam/Review of Systems Vital Signs Vitals Vital Signs Date Time Temp Pulse Resp B/P Pulse Ox O2 Delivery O2 Flow Rate FiO2 08/02/16 09:16 99.7 08/02/16 07:00 125 20 121/58 97 08/01/16 20:18 Room Air Intake and Output 08/01/16 08/01/16 08/02/16 15:00 23:00 07:00 Intake Total 1820 ml 1450 ml Output Total 1000 ml Balance 1820 ml 450 ml Exam Gen Stefano: mild distress, AAOx4 HEENT: NC/AT, PERRLA, EOMI NECK: with cervical collar THORAX: symmetrical, no obvious deformities CV: S1S2, RRR, no M/G/R Lungs: CTAB no W/C/R/R Abd: soft, NT/ND, +BS, no rebound, no guarding, neg HSM EXT: no edema, no ecchymosis, no clubbing, improving movement and strength Neuro: improving function - still with slight neuropathy, numbness Psych: good mentation, alert and oriented, good mood and affect Skin: C/D/I Results Result Diagram: 08/02/16 0440 08/02/16 0440 Results 24 hrs Laboratory Tests Test 08/02/16 04:40 Anion Gap 12 Basophils # 0.0 Basophils % 0.1 Blood Urea Nitrogen 17 Calcium Level 8.1 L Carbon Dioxide Level 22 Chloride Level 104 Creatinine 0.94 Eosinophils # 0.2 Eosinophils % 1.9 Glucose Level 128 Hematocrit 28.5 L Hemoglobin 9.8 L Lymphocytes # 1.1 Lymphocytes % 8.9 L Mean Corpuscular Hemoglobin 31.7 Mean Corpuscular Hemoglobin Concent 34.5 Mean Corpuscular Volume 91.8 Mean Platelet Volume 8.1 Monocytes # 0.6 Monocytes % 5.2 Neutrophils # 10.2 H Neutrophils % 83.9 H Nucleated Red Blood Cells # 0.0 Nucleated Red Blood Cells % 0.0 Platelet Count 192 # Potassium Level 3.8 Red Blood Count 3.11 L Red Cell Distribution Width 13.7 Sodium Level 134 L White Blood Count 12.1 #H Medications Medications Current Medications Oxycodone/ Acetaminophen (Percocet (5/ 325)) 1 tab Q4H PRN PO PAIN LEVEL 4-6 Last administered on 08/01/16 18:40; Admin Dose 1 TAB; Start 07/18/16 at 11:30 Oxycodone/ Acetaminophen (Percocet (5/ 325)) 2 tab Q4H PRN PO PAIN LEVEL 7-10 Last administered on 07/24/16 21:47; Admin Dose 2 TAB; Start 07/18/16 at 11:30 Simethicone 160 mg 160 mg Q8H PRN PO DISTENSION/GAS/BLOATING Last administered on 07/19/16 20:04; Admin Dose 160 MG; Start 07/18/16 at 11:30 Oxytocin/Lactated Ringer's 500 ml @ 0 mls/hr ONCE PRN IV For Hemorrhage Management; Start 07/18/16 at 11:30 Methylergonovine Maleate (Methergine) 0.2 mg ONCE PRN IM VAGINAL BLEEDING; Start 07/18/16 at 11:30 Carboprost Tromethamine (Hemabate) 250 mcg ONCE PRN IM VAGINAL BLEEDING; Start 07/18/16 at 11:30 Misoprostol (Cytotec) 1,000 mcg ONCE PRN [place] VAGINAL BLEEDING; Start 07/18/16 at 11:30 Acetaminophen/ Hydrocodone Bitart ([place] (5/325)) 1 tab Q4H PRN PO PAIN LEVEL 1 -5 Last administered on 08/01/16 09:24; Admin Dose 1 TAB; Start 07/22/16 at 15: 00 Acetaminophen/ Hydrocodone Bitart ([place] (5/325)) 2 tab Q4H PRN PO PAIN LEVEL 6 -10 Last administered on 07/25/16 09:05; Admin Dose 2 TAB; Start 07/22/16 at 15: 00 Ondansetron HCl (Zofran Inj) 4 mg Q6H PRN IV NAUSEA AND/OR VOMITING; Start 07/22 at 15:00 Docusate Sodium (Colace) 100 mg BID PO Last administered on 08/02/16 09:17; Admin Dose 100 MG; Start 07/22/16 at 15:00 Acetaminophen (Tylenol Tab) 650 mg Q4H PRN PO TEMP GREATER THAN 101F OR JONES Last administered on 08/02/16 05:36; Admin Dose 650 MG; Start 07/22/16 at 15:00 Ascorbic Acid (Vitamin C) 1,000 mg BID PO Last administered on 08/02/16 09:17 ; Admin Dose 1,000 MG; Start 07/23/16 at 09:00 Ferrous Sulfate (Ferrous Sulfate (Ec)) 325 mg TID PO Last administered on 09:17; Admin Dose 325 MG; Start 07/23/16 at 09:00 Diazepam (Valium) 5 mg Q4H PRN PO MUSCLE SPASMS Last administered on 07/25/16 09:05; Admin Dose 5 MG; Start 07/22/16 at 15:00 Phenol (Cepastat Lozenge) 1 lozenge PRN PRN MT SORE THROAT; Start 07/22/16 at 15 :00 Diphenhydramine HCl (Benadryl) 50 mg Q6H PRN PO PRURITUS Last administered on 00:34; Admin Dose 50 MG; Start 07/22/16 at 15:00 Naloxone HCl 0.2 mg 0.2 mg Q2M PRN IV RR 8 BREATHS/MIN OR LESS; Start 07/22/16 at 15:00 Sodium Chloride 1,000 ml @ 75 mls/hr [id number] IV Last administered on 00:46; Admin Dose 75 MLS/HR; Start 08/01/16 at 11:00 Imipenem/ Cilastatin Sodium (Primaxin 500 Mg/ 100 ml (Pmx)) 100 ml @ 100 mls/ hr Q8 IVPB Last administered on 08/02/16 05:35; Admin Dose 100 MLS/HR; Start 08/01/16 at 22:00 THALIA CARRASQUILLO Aug 02, 2016 11:45
--- NOTE | 2016-08-02 12:23 | PN ---
Date/Time of Note Date/Time of Note DATE: 08/02/16 TIME: 12:19 Assessment/Plan Lines/Catheters IV Catheter Type (from [facility]): Peripheral IV Barros in Place (from [facility]): No Assessment/Plan Chief Complaint/Hosp Course POD #12 s/p C4-T4 laminectomy for epidural hematoma I reviewed the patient's MRI of the cervical spine with and without contrast. There is excellent decompression of the thecal sac with no residual stenosis. There is a tiny amount of subcutaneous fluid with is non-compressive and does not enhance and is consistent with a post-operative seroma.This is likely a resolving that is not unexpected to be seen 12 days after surgery. There is no abscess present and the seroma is tiny and not suspected to be infected. Patient should follow-up as recommend for spinal angiogram as outpatient. Cont. Abx per ID and fever work-up. Problems: Exam/Review of Systems Vital Signs Vitals Vital Signs Date Time Temp Pulse Resp B/P Pulse Ox O2 Delivery O2 Flow Rate FiO2 08/02/16 09:16 99.7 08/02/16 07:00 125 20 121/58 97 08/01/16 20:18 Room Air Intake and Output 08/01/16 08/01/16 08/02/16 15:00 23:00 07:00 Intake Total 1820 ml 1450 ml Output Total 1000 ml Balance 1820 ml 450 ml Results Result Diagram: 08/02/16 0440 08/02/16 044 KAVYA LYNN MD Aug 02, 2016 12:22
[2016-08-02] MEDS ORDERED: BARIUM SULF 2% 450 ML BTL (BERRY SMOOTHIE) PO ONE (12:30)
--- NOTE | 2016-08-02 12:40 | PN ---
DATE: 08/02/2016 SUBJECTIVE: The patient is alert, sitting up in a chair. Spiking fevers with a temperature max yes terday of 103, this morning 101.4 and currently 99.7, pulse 72, respirations 18, blood pressure 118/ 68, saturation 97% on room air. LABORATORY DATA: WBC 12.1, H and H 9.8 and 28.5, platelets 192, neutrophils 83.9. BUN 17, creatinin e 0.94. MICROBIOLOGY: Blood cultures from 07/30/2016 growing E. coli susceptible to Levaquin, ciprofloxacin , cefotaxime and amikacin. Urine culture on admission grew Pseudomonas aeruginosa susceptible to al l antibiotics. Nares swab was negative. DIAGNOSTICS: Cervical spine MRI revealed bilateral C4 through T4 laminectomies with resolution of m ultilevel spinal canal stenosis. There is a dorsal subcutaneous peripheral enhancing fluid collecti on extending to the skin surface which likely represents postoperative seroma. No abnormal bone mar row edema. ANTIMICROBIALS: The patient was started on imipenem yesterday. PHYSICAL EXAMINATION: GENERAL: This is a well-nourished, well-developed, young woman who is alert, in no distres s. HEENT: Head atraumatic, normocephalic. Sclerae anicteric. Buccal mucosa pink. NECK: Supple. CHEST: Rise symmetrical. Breath sounds clear. HEART: S1, S2. ABDOMEN: Soft. Bowel sounds present. EXTREMITIES: Without cyanosis. ASSESSMENT: 1. Sepsis with Escherichia coli bacteremia, likely secondary to infectious cervical spine seroma. 2. Status post cervicothoracic epidural hematoma evacuation with laminectomy C4 through T4 with apolinar dence of fluid collection per MRI of the cervical spine. 3. History of . 4. Status post Pseudomonas aeruginosa urinary tract infection. PLAN: The patient remains clinically stable, continuously spiking fevers. [facility] of the cervical spine. We will keep her on imipenem for now, await for re peat blood cultures. Follow neurosurgical recommendations in regards to further intervention and po ssible drainage of seroma. Dictated By: LIBBY GARZA [employer] SALESPERSON for MANNY CAMPBELL MD NI/NTS Conf#: [id number] DID#: [id number]
[2016-08-02 14:50] VITALS: BP 157/85; PULSE 124
[2016-08-02] MEDS ORDERED: IBUPROFEN 600 MG TAB PO ONE (15:00)
[2016-08-02] MEDS ORDERED: SOD CHLORIDE 0.9% 100 ML ONE (15:37)
[2016-08-02] MEDS ORDERED: IOHEXOL 300MG/ML 150 ML BTL ONE (15:38)
--- NOTE | 2016-08-02 17:23 | RADRPT ---
PROCEDURE: CT Abdomen and Pelvis with contrast. CLINICAL INDICATION: Abdominal pain with bacteremia and fever. Recent . TECHNIQUE: CT scan of the abdomen and pelvis with contrast was performed on a multi-detector high- resolution CT scanner. The patient was scanned following the uncomplicated intravenous administrati on of 90 cc of Omnipaque 300. Coronal and sagittal reformatted images were obtained from the axial source images. Images were reviewed on a high-resolution PACS workstation. The total exam CTDI equal s 8.83 mGy and the total exam DLP equals 489.98 mGy-cm. One or more of the following dose reduction techniques were used: Automated exposure control. Adjustment of the mA and/or kV according to patient size. Use of iterative reconstruction technique. COMPARISON: None. FINDINGS: CT abdomen: The lung bases are clear. The heart size is normal, without pericardial thickening or effusion. Th e liver is normal in size and density without focal mass or intrahepatic biliary dilatation. The sp evaristo is normal in size and homogeneous in density. The stomach is partially collapsed, but is gross ly unremarkable. The pancreas as visualized is normal. The gallbladder and biliary tree are unrema rkable and there is no evidence for biliary dilatation. The adrenal glands are symmetric and normal . There is delayed heterogeneous enhancement of the right with perinephric stranding. There is mild r ight hydroureteronephrosis. There is a small focal area of nonenhancement in the upper pole left ki dney likely representing focal pyelonephritis. There is approximately 2 cm hypodensity with surroun ding smaller satellite hypodensities in the lower pole left kidney which could represent intrarenal abscess. The aorta is of normal caliber. There is no retroperitoneal lymphadenopathy. The pamela hepatis peggy on is clear. The bowel and mesentery, as visualized, are equally unremarkable. CT pelvis: The small bowel loops situated within the pelvis are unremarkable. There is large heterogeneous post uterus with no evidence of gas or large endometrial fluid collection. The pelvic sidewalls a nd inguinal regions are clear. The sigmoid colon and rectum are unremarkable. No mass, lymphadenop athy, or free fluid is seen. No acute inflammation is seen. The bladder is normal. The surrounding osseous structures are unremarkable. No osteolytic or osteoblastic lesion is detected. IMPRESSION: 1. Status post . No intra-abdominal fluid collection to suggest abscess. 2. Multifocal patchy areas of nonenhancement involving the majority of the right kidney with perinep hric stranding suggesting pyelonephritis. Mild right hydroureteronephrosis without ureteral stone. This is likely related to ureteral compression by uterus. 3. Small focal nonenhancing area in the upper pole left kidney suggesting focal pyelonephritis. Ap proximately 2 cm fluid density structure with surrounding smaller satellite structures which could r epresent intrarenal abscess or in a patient with bacteremia and fever. Recommend targeted left gage al ultrasound. RPTAT: BB .April Naik MD, Date Time Electronically viewed and signed by .April Naik MD, on 08/02/2016 17:22 .O/
[2016-08-02 17:35] VITALS: BP 138/82; PULSE 81
[2016-08-02 19:42] VITALS: BP 141/75; RESP 18
--- NOTE | 2016-08-02 20:50 | CONS ---
Date/Time of Note Date/Time of Note DATE: 08/02/16 TIME: 20:48 Assessment/Plan Assessment/Plan Chief Complaint/Hosp Course Pt with persistent fevers and GNR bacteremia. CT abdomen + acute pyelonephritis with questionable L kidney abscess. Consider urology evaluation. Continue abx, will order renal US Problems: Consultation Date/Type/Reason Admit Date/Time Jul 17, 2016 at 22:30 Initial Consult Date Type of Consultation: ID Referring Provider: NAVYA JACOB MD Exam/Review of Systems Vital Signs Vitals Vital Signs Date Time Temp Pulse Resp B/P Pulse Ox O2 Delivery O2 Flow Rate FiO2 08/02/16 19:42 98.0 97 18 141/75 98 08/01/16 20:18 Room Air Intake and Output 08/01/16 08/01/16 08/02/16 15:00 23:00 07:00 Intake Total 1820 ml 1450 ml Output Total 1000 ml Balance 1820 ml 450 ml Results Result Diagram: 08/02/16 0440 08/02/16 0440 Results 24 hrs Laboratory Tests Test 08/02/16 04:40 08/02/16 15:27 Anion Gap 12 Basophils # 0.0 Basophils % 0.1 Blood Urea Nitrogen 17 Calcium Level 8.1 L Carbon Dioxide Level 22 Chloride Level 104 Creatinine 0.94 Eosinophils # 0.2 Eosinophils % 1.9 Glucose Level 128 Hematocrit 28.5 L Hemoglobin 9.8 L Lymphocytes # 1.1 Lymphocytes % 8.9 L Mean Corpuscular Hemoglobin 31.7 Mean Corpuscular Hemoglobin Concent 34.5 Mean Corpuscular Volume 91.8 Mean Platelet Volume 8.1 Monocytes # 0.6 Monocytes % 5.2 Neutrophils # 10.2 H Neutrophils % 83.9 H Nucleated Red Blood Cells # 0.0 Nucleated Red Blood Cells % 0.0 Platelet Count 192 # Potassium Level 3.8 Red Blood Count 3.11 L Red Cell Distribution Width 13.7 Sodium Level 134 L White Blood Count 12.1 #H Lactic Acid Level 1.0 Medications Medications Current Medications Oxycodone/ Acetaminophen (Percocet (5/ 325)) 1 tab Q4H PRN PO PAIN LEVEL 4-6 Last administered on 08/01/16t 18:40; Admin Dose 1 TAB; Start 07/18/16 at 11:30 Oxycodone/ Acetaminophen (Percocet (5/ 325)) 2 tab Q4H PRN PO PAIN LEVEL 7-10 Last administered on 07/24/16 21:47; Admin Dose 2 TAB; Start 07/18/16 at 11:30 Simethicone 160 mg 160 mg Q8H PRN PO DISTENSION/GAS/BLOATING Last administered on 07/19/16 20:04; Admin Dose 160 MG; Start 07/18/16 at 11:30 Oxytocin/Lactated Ringer's 500 ml @ 0 mls/hr ONCE PRN IV For Hemorrhage Management; Start 07/18/16 at 11:30 Methylergonovine Maleate (Methergine) 0.2 mg ONCE PRN IM VAGINAL BLEEDING; Start 07/18/16 at 11:30 Carboprost Tromethamine (Hemabate) 250 mcg ONCE PRN IM VAGINAL BLEEDING; Start 07/18/16 at 11:30 Misoprostol (Cytotec) 1,000 mcg ONCE PRN [place] VAGINAL BLEEDING; Start 07/18/16 at 11:30 Acetaminophen/ Hydrocodone Bitart ([place] (5/325)) 1 tab Q4H PRN PO PAIN LEVEL 1 -5 Last administered on 08/01/16 09:24; Admin Dose 1 TAB; Start 07/22/16 at 15: 00 Acetaminophen/ Hydrocodone Bitart ([place] (5/325)) 2 tab Q4H PRN PO PAIN LEVEL 6 -10 Last administered on 07/25/16 09:05; Admin Dose 2 TAB; Start 07/22/16 at 15: 00 Ondansetron HCl (Zofran Inj) 4 mg Q6H PRN IV NAUSEA AND/OR VOMITING; Start 07/22 at 15:00 Docusate Sodium (Colace) 100 mg BID PO Last administered on 08/02/16 20:24; Admin Dose 100 MG; Start 07/22/16 at 15:00 Acetaminophen (Tylenol Tab) 650 mg Q4H PRN PO TEMP GREATER THAN 101F OR JONES Last administered on 08/02/16 20:30; Admin Dose 650 MG; Start 07/22/16 at 15:00 Ascorbic Acid (Vitamin C) 1,000 mg BID PO Last administered on 08/02/16 20:23 ; Admin Dose 1,000 MG; Start 07/23/16 at 09:00 Ferrous Sulfate (Ferrous Sulfate (Ec)) 325 mg TID PO Last administered on 20:23; Admin Dose 325 MG; Start 07/23/16 at 09:00 Diazepam (Valium) 5 mg Q4H PRN PO MUSCLE SPASMS Last administered on 07/25/16 09:05; Admin Dose 5 MG; Start 07/22/16 at 15:00 Phenol (Cepastat Lozenge) 1 lozenge PRN PRN MT SORE THROAT; Start 07/22/16 at 15 :00 Diphenhydramine HCl (Benadryl) 50 mg Q6H PRN PO PRURITUS Last administered on 00:34; Admin Dose 50 MG; Start 07/22/16 at 15:00 Naloxone HCl 0.2 mg 0.2 mg Q2M PRN IV RR 8 BREATHS/MIN OR LESS; Start 07/22/16 at 15:00 Sodium Chloride 1,000 ml @ 75 mls/hr [id number] IV Last administered on 13:43; Admin Dose 75 MLS/HR; Start 08/01/16 at 11:00 Imipenem/ Cilastatin Sodium (Primaxin 500 Mg/ 100 ml (Pmx)) 100 ml @ 100 mls/ hr Q8 IVPB Last administered on 08/02/16 20:24; Admin Dose 100 MLS/HR; Start 08/01/16 at 22:00 LIBBY GARZA NP Aug 02, 2016 20:50
--- NOTE | 2016-08-02 22:05 | RADRPT ---
PROCEDURE: Ultrasound renal and bladder CLINICAL INDICATION: Flank pain, suspected renal abscess. TECHNIQUE: Staples scale and color doppler ultrasound images of the kidneys and urinary bladder. COMPARISON: CT abdomen pelvis 08/02/2016 FINDINGS: Right kidney 12.4 cm in length. Right renal cortical thickness is preserved. Left kidney 10.7 cm in length. Left renal cortical thickness is preserved. Normal echogenicity. Minimal right-sided hydronephrosis. No renal calculi. No focal lesions. Bladder: No focal lesions. IMPRESSION: No evidence of focal drainable fluid collection/abscess within either kidney. RPTAT: AADD .Héctor Cabezas MD, MD Date Time Electronically viewed and signed by .Héctor Cabezas MD, MD on 08/02/2016 22:05 .B/
[2016-08-03] MEDS: SOD CHLORIDE 0.9% 1,000 ML IV SCH ×3 (03:00→20:38)
[2016-08-03] MEDS: IMIPENEM-CILAST 500MG IV (PMX) 100 ML IVPB SCH ×3 (05:23→20:40)
[2016-08-03 05:52] LABS: BASOPHILS % 0.1 % (0.0-2.0); EOSINOPHILS # 0.2 10^3/ul (0.0-0.5); EOSINOPHILS % 2.1 % (0.0-7.0); HEMATOCRIT 30.5 % (37.0-47.0); HEMOGLOBIN 10.4 g/dl (12.0-16.0); LYMPHOCYTES # 0.8 10^3/ul (0.8-2.9); LYMPHOCYTES % 7.4 % (15.0-51.0); MEAN CORPUSCULAR HEMOGLOBIN 31.3 pg (29.0-33.0); MEAN CORPUSCULAR VOLUME 92.1 fl (82.0-101.0); MEAN PLATELET VOLUME 8.1 fl (7.4-10.4); MONOCYTES % 8.9 % (0.0-11.0); NEUTROPHIL # 8.9 10^3/ul (1.6-7.5); NEUTROPHILS % 81.5 % (39.0-77.0); PLATELET COUNT 218 10^3/UL (140-440); RED BLOOD COUNT 3.31 10^6/ul (4.20-5.40); RED CELL DISTRIBUTION WIDTH 13.6 % (11.5-14.5); UNCORRECTED WBC 10.9 10^3/ul (4.8-10.8); WHITE BLOOD COUNT 10.9 10^3/ul (4.8-10.8)
[2016-08-03 06:12] LABS: CONDITION 1
[2016-08-03 07:00] VITALS: BP 143/79; RESP 20
[2016-08-03] MEDS: FERROUS SULFATE (EC) 325 MG TAB PO SCH ×3 (08:57→20:39)
[2016-08-03] MEDS: ASCORBIC ACID 500 MG TAB PO SCH ×2 (08:57→20:39)
[2016-08-03] MEDS: DOCUSATE SODIUM 100 MG CAP PO SCH ×2 (08:57→20:39)
--- NOTE | 2016-08-03 09:09 | CONS ---
DATE OF ADMISSION: 07/17/2016 DATE OF CONSULTATION: 08/03/2016 REQUESTING PHYSICIAN: Dr. Jimmy King HISTORY OF PRESENT ILLNESS: This is a 25-year-old female who is a 1 and para 1. She just h ad the baby delivered by , and after the delivery the patient was feeling weakness. She linder d lower extremity weakness and numbness, and she was found to have a cervical and thoracic hematoma pressing on her spine and her cord. She underwent a cervical and thoracic laminectomy from C4 throu gh T4, and she has improved since. However, she has had positive blood culture for E coli. She did have a urine culture positive for Pseudomonas, and again she does have a new blood culture that is positive for gram-negative rods, and yesterday she underwent a CT of the abdomen and pelvis that dixie wed signs suggestive of bilateral pyelonephritis and a question of an area of possible abscess in th e left kidney. Therefore, a urological consultation was requested. The patient did have a renal ul trasound, and the renal ultrasound did not show any drainable collection of fluid in the kidney. As far as the patient's symptoms, she states that she does urinate every 3 hours. There is no burning or stinging on urination. She is not incontinent. She denies having any urinary problems during h er , and she is able to urinate freely. PAST MEDICAL HISTORY: Otherwise, is negative except what is mentioned above. ALLERGIES: THE PATIENT HAS NO KNOWN DRUG ALLERGIES. SOCIAL HISTORY: She does not smoke, does not drink any alcohol. PHYSICAL EXAMINATION: GENERAL: Reveals a 25-year-old female. VITAL SIGNS: Temperature is 101.5, pulse is 57, respirations 20, blood pressure 143/79. ABDOMEN: Soft. She does have a scar in the lower abdomen from her recent . PELVIC: Not done. She just had her . EXTREMITIES: Reveal no edema, no varicose veins. LABORATORY DATA: CBC shows a white count of 10.9, hemoglobin 10.4, hematocrit 30.5. BUN is 17, cre atinine 0.94. Again, blood culture done on showed gram-negative rods, sensitivity is pending. Blood culture on the showed E coli, and urine culture on the 22 of July showed pseudomona s. IMPRESSION AND PLAN: Urinary tract infection and possible bilateral pyelonephritis, and there is a question of a small area of abscess in the left kidney; however, on ultrasound it did not show that it is something that is drainable; therefore, the recommendation at the present would be to continue the antibiotics as per the infectious disease recommendation and monitor her count and her fever, a nd at a later date repeat the renal ultrasound and maybe even the CT scan and see if any area of pos sible abscess exists or it has cleared up and subsided. Dictated By: MARC SCOTT/BEE Conf#: [id number] DID#: [id number]
[2016-08-03 10:15] VITALS: BP 136/80; PULSE 101; RESP 20
--- NOTE | 2016-08-03 10:33 | PN ---
Date/Time of Note Date/Time of Note DATE: 08/03/16 TIME: 10:29 Assessment/Plan VTE Prophylaxis VTE Prophylaxis Intervention: contraindicated VTE Contraindication Reason: bleeding Lines/Catheters IV Catheter Type (from Nrs): Peripheral IV Urinary Cath still in place: No Assessment/Plan Chief Complaint/Hosp Course Assessment/Plan: 25 F with: 1. Cervical-thoracic epidural hematoma: s/p evacuation/laminectomy C4-T4 POD # 12 - MRI C spine showed: resolution of multilevel spinal canal stenosis and spinal cord impingement as noted on prior MRI. There is a dorsal subcutaneous peripheral enhancing fluid collection extending to the skin surface which likely represents a postoperative seroma. - f/u NSS rec's, monitor drain. 2. Extremity weakness/numbness, 2/2 above - improved - f/u Neuro rec's, Rehab for PT needed 3. Anemia: likely 2/2 blood loss: H/H stable - monitor closely and transfuse as needed 4. Sepsis: + fevers, + blood cx 2/2 for gram (-) rods. Again CT scam shows pyelonephritis and questionable L kidney abscess. consulted as well. - continue tylenol, Motrin, IVF's, abx, f/u ID and consult rec's - conservative tx for now. Further recommendation based on clinical course. - needs retirement for rehab - [facility] - based on insurance - other SNF's Problems: Subjective 24 Hr Interval Summary Free Text/Dictation Pt with less abd pain, found now with pyelonephritis and questionable L kidney abscess. Still + fevers. Exam/Review of Systems Vital Signs Vitals Vital Signs Date Time Temp Pulse Resp B/P Pulse Ox O2 Delivery O2 Flow Rate FiO2 08/03/16 07:00 101.5 57 20 143/79 98 08/01/16 20:18 Room Air Intake and Output 08/02/16 08/02/16 08/03/16 15:00 23:00 07:00 Intake Total 2050 ml 1950 ml Output Total 1000 ml Balance 1050 ml 1950 ml Exam Gen Stefano: less distress, AAOx4 HEENT: NC/AT, PERRLA, EOMI NECK: with cervical collar THORAX: symmetrical, no obvious deformities CV: S1S2, RRR, no M/G/R Lungs: CTAB no W/C/R/R Abd: soft, NT/ND, +BS, no rebound, no guarding, neg HSM EXT: no edema, no ecchymosis, no clubbing, improving movement and strength Neuro: improving function - still with slight neuropathy, numbness Psych: good mentation, alert and oriented, good mood and affect Skin: C/D/I Results Result Diagram: 08/03/16 0450 08/02/16 0440 Results 24 hrs Laboratory Tests Test 08/02/16 15:27 08/03/16 04:50 Lactic Acid Level 1.0 Basophils # 0.0 Basophils % 0.1 Eosinophils # 0.2 Eosinophils % 2.1 Hematocrit 30.5 L Hemoglobin 10.4 L Lymphocytes # 0.8 Lymphocytes % 7.4 L Mean Corpuscular Hemoglobin 31.3 Mean Corpuscular Hemoglobin Concent 34.0 Mean Corpuscular Volume 92.1 Mean Platelet Volume 8.1 Monocytes # 1.0 H Monocytes % 8.9 Neutrophils # 8.9 H Neutrophils % 81.5 H Nucleated Red Blood Cells # 0.0 Nucleated Red Blood Cells % 0.0 Platelet Count 218 Red Blood Count 3.31 L Red Cell Distribution Width 13.6 White Blood Count 10.9 H Medications Medications Current Medications Oxycodone/ Acetaminophen (Percocet (5/ 325)) 1 tab Q4H PRN PO PAIN LEVEL 4-6 Last administered on 08/01/16 18:40; Admin Dose 1 TAB; Start 07/18/16 at 11:30 Oxycodone/ Acetaminophen (Percocet (5/ 325)) 2 tab Q4H PRN PO PAIN LEVEL 7-10 Last administered on 07/24/16 21:47; Admin Dose 2 TAB; Start 07/18/16 at 11:30 Simethicone 160 mg 160 mg Q8H PRN PO DISTENSION/GAS/BLOATING Last administered on 07/19/16 20:04; Admin Dose 160 MG; Start 07/18/16 at 11:30 Oxytocin/Lactated Ringer's 500 ml @ 0 mls/hr ONCE PRN IV For Hemorrhage Management; Start 07/18/16 at 11:30 Methylergonovine Maleate (Methergine) 0.2 mg ONCE PRN IM VAGINAL BLEEDING; Start 07/18/16 at 11:30 Carboprost Tromethamine (Hemabate) 250 mcg ONCE PRN IM VAGINAL BLEEDING; Start 07/18/16 at 11:30 Misoprostol (Cytotec) 1,000 mcg ONCE PRN [place] VAGINAL BLEEDING; Start 07/18/16 at 11:30 Acetaminophen/ Hydrocodone Bitart ([place] (5/325)) 1 tab Q4H PRN PO PAIN LEVEL 1 -5 Last administered on 08/01/16 09:24; Admin Dose 1 TAB; Start 07/22/16 at 15: 00 Acetaminophen/ Hydrocodone Bitart ([place] (5/325)) 2 tab Q4H PRN PO PAIN LEVEL 6 -10 Last administered on 07/25/16 09:05; Admin Dose 2 TAB; Start 07/22/16 at 15: 00 Ondansetron HCl (Zofran Inj) 4 mg Q6H PRN IV NAUSEA AND/OR VOMITING; Start 07/22 at 15:00 Docusate Sodium (Colace) 100 mg BID PO Last administered on 08/03/16 08:57; Admin Dose 100 MG; Start 07/22/16 at 15:00 Acetaminophen (Tylenol Tab) 650 mg Q4H PRN PO TEMP GREATER THAN 101F OR JONES Last administered on 08/02/16 20:30; Admin Dose 650 MG; Start 07/22/16 at 15:00 Ascorbic Acid (Vitamin C) 1,000 mg BID PO Last administered on 08/03/16 08:57 ; Admin Dose 1,000 MG; Start 07/23/16 at 09:00 Ferrous Sulfate (Ferrous Sulfate (Ec)) 325 mg TID PO Last administered on 08:57; Admin Dose 325 MG; Start 07/23/16 at 09:00 Diazepam (Valium) 5 mg Q4H PRN PO MUSCLE SPASMS Last administered on 07/25/16 09:05; Admin Dose 5 MG; Start 07/22/16 at 15:00 Phenol (Cepastat Lozenge) 1 lozenge PRN PRN [place] SORE THROAT; Start 07/22/16 at 15 :00 Diphenhydramine HCl (Benadryl) 50 mg Q6H PRN PO PRURITUS Last administered on 00:34; Admin Dose 50 MG; Start 07/22/16 at 15:00 Naloxone HCl 0.2 mg 0.2 mg Q2M PRN IV RR 8 BREATHS/MIN OR LESS; Start 07/22/16 at 15:00 Sodium Chloride 1,000 ml @ 75 mls/hr [id number] IV Last administered on 05:22; Admin Dose 75 MLS/HR; Start 08/01/16 at 11:00 Imipenem/ Cilastatin Sodium (Primaxin 500 Mg/ 100 ml (Pmx)) 100 ml @ 100 mls/ hr Q8 IVPB Last administered on 08/03/16 05:23; Admin Dose 100 MLS/HR; Start 08/01/16 at 22:00 THALIA CARRASQUILLO Aug 03, 2016 10:33
--- NOTE | 2016-08-03 12:59 | PN ---
DATE: 08/03/2016 SUBJECTIVE: No events overnight. The patient is alert, sitting comfortably in a chair. Still with on and off fevers. T-max yesterday 103.2, T-current 99.3, WBC today 10.9, neutrophils 81.5, BUN 17, creatinine 0.94. MICROBIOLOGY: Blood culture growing E. coli. Urine culture on admission grew Pseudomonas aeruginos a. DIAGNOSTICS: CT of the abdomen and pelvis yesterday revealed multifocal patchy areas of known enhan cement involving the majority of the right kidney with perinephric stranding suggesting pyelonephrit is, mild right hydroureteronephrosis without stone, small focal nonenhancing area in the upper pole of left kidney suggesting focal pyelonephritis with a questionable intrarenal abscess. Renal ultras ound revealed no evidence of focal drainable fluid collection abscess within either kidney. ANTIMICROBIALS: Patient is on imipenem. PHYSICAL EXAMINATION: GENERAL: A well-developed young woman who is alert, in no distress. HEENT: Head atraumatic, normocephalic. Sclerae anicteric. Buccal mucosa pink. NECK: Supple, trachea midline. CHEST: Rise symmetrical. Breath sounds clear. HEART: S1, S2. ABDOMEN: Soft. Bowel tones present. EXTREMITIES: Without cyanosis. ASSESSMENT: 1. Persistent fevers with persistent bacteremia, likely secondary to #2. 2. Acute pyelonephritis, questionable kidney abscess, patient is being evaluated by joe Snell o recommends antibiotics at this time. 3. Pseudomonas aeruginosa urinary tract infection on admission. 4. Postop day #12 status post C4-T4 laminectomy for epidural hematoma evacuation, neurosurgeon on c ase. MRI consistent with postoperative seroma. PLAN: The patient remains clinically stable. She is covered with appropriate antimicrobials which we are going to continue. We will await for repeat blood cultures and follow recommendations of loraine sparks. Dictated By: LIBBY GARZA LEVEL VIAL CURVATURE GAUGER for MANNY GOFF/BEE Conf#: [id number] DID#: [id number]
[2016-08-03] MEDS: ACETAMINOPHEN 325 MG TAB PO PRN (14:45)
[2016-08-03 17:35] VITALS: BP 141/77; PULSE 80; RESP 20
[2016-08-03 20:08] VITALS: BP 149/88; RESP 18
[2016-08-03] MEDS: HYDROCODONE/APAP (5/325) TAB PO PRN (20:39)
[2016-08-04] MEDS: IMIPENEM-CILAST 500MG IV (PMX) 100 ML IVPB SCH ×3 (05:10→20:58)
[2016-08-04 06:03] LABS: POTASSIUM 3.9 mmol/L (3.5-5.1)
[2016-08-04 06:05] LABS: CREATININE 0.79 mg/dl (0.44-1.00)
[2016-08-04 06:06] LABS: CALCIUM 8.5 mg/dl (8.4-10.2)
[2016-08-04 06:08] LABS: BASOPHILS % 0.2 % (0.0-2.0); EOSINOPHILS # 0.3 10^3/ul (0.0-0.5); EOSINOPHILS % 2.4 % (0.0-7.0); HEMATOCRIT 29.2 % (37.0-47.0); LYMPHOCYTES # 2.1 10^3/ul (0.8-2.9); LYMPHOCYTES % 16.5 % (15.0-51.0); MEAN CORPUSCULAR HEMOGLOBIN 31.1 pg (29.0-33.0); MEAN CORPUSCULAR HGB CONC 34.3 g/dl (32.0-37.0); MEAN CORPUSCULAR VOLUME 90.6 fl (82.0-101.0); MEAN PLATELET VOLUME 8.1 fl (7.4-10.4); MONOCYTE # 1.5 10^3/ul (0.3-0.9); MONOCYTES % 12.1 % (0.0-11.0); NEUTROPHIL # 8.8 10^3/ul (1.6-7.5); NEUTROPHILS % 68.8 % (39.0-77.0); PLATELET COUNT 261 10^3/UL (140-440); RED BLOOD COUNT 3.23 10^6/ul (4.20-5.40); RED CELL DISTRIBUTION WIDTH 13.5 % (11.5-14.5); UNCORRECTED WBC 12.7 10^3/ul (4.8-10.8); WHITE BLOOD COUNT 12.7 10^3/ul (4.8-10.8)
[2016-08-04 06:12] LABS: CONDITION 1
[2016-08-04 07:33] VITALS: BP 130/71; RESP 20
[2016-08-04] MEDS: ASCORBIC ACID 500 MG TAB PO SCH ×2 (08:58→20:58)
[2016-08-04] MEDS: FERROUS SULFATE (EC) 325 MG TAB PO SCH ×3 (08:58→20:58)
[2016-08-04] MEDS: DOCUSATE SODIUM 100 MG CAP PO SCH ×2 (08:58→20:58)
[2016-08-04] MEDS: IBUPROFEN 600 MG TAB PO PRN ×2 (09:31→22:28)
--- NOTE | 2016-08-04 11:23 | PN ---
Date/Time of Note Date/Time of Note DATE: 08/04/16 TIME: 11:21 Assessment/Plan VTE Prophylaxis VTE Prophylaxis Intervention: contraindicated VTE Contraindication Reason: bleeding Lines/Catheters IV Catheter Type (from Nrsg): Peripheral IV Urinary Cath still in place: No Assessment/Plan Chief Complaint/Hosp Course Assessment/Plan: 25 F with: 1. Cervical-thoracic epidural hematoma: s/p evacuation/laminectomy C4-T4 POD # 13 - MRI C spine showed: resolution of multilevel spinal canal stenosis and spinal cord impingement as noted on prior MRI. There is a dorsal subcutaneous peripheral enhancing fluid collection extending to the skin surface which likely represents a postoperative seroma. - f/u NSS rec's, monitor drain. 2. Extremity weakness/numbness, 2/2 above - improved - f/u Neuro rec's, Rehab for PT needed 3. Anemia: likely 2/2 blood loss: H/H stable - monitor closely and transfuse as needed 4. Sepsis: + fevers, + blood cx 4/4 bottles for E coli. Again CT scam shows pyelonephritis and questionable L kidney abscess. consulted as well. - continue tylenol, Motrin, IVF's, abx, f/u ID and consult rec's - conservative tx for now, abx and pain meds Further recommendation based on clinical course. - possible d/c to fdc for rehab - [facility] - based on insurance - will follow up with CM on this. Problems: Subjective 24 Hr Interval Summary Free Text/Dictation Pt has less neck and flank pain, still positive fevers. Exam/Review of Systems Vital Signs Vitals Vital Signs Date Time Temp Pulse Resp B/P Pulse Ox O2 Delivery O2 Flow Rate FiO2 08/04/16 07:33 100.0 72 20 130/71 98 08/03/16 17:35 Room Air Intake and Output 08/03/16 08/03/16 08/04/16 15:00 23:00 07:00 Intake Total 2110 ml 1900 ml Output Total 1250 ml Balance 2110 ml 650 ml Exam Gen Stefano: less distress, AAOx4 HEENT: NC/AT, PERRLA, EOMI NECK: with cervical collar THORAX: symmetrical, no obvious deformities CV: S1S2, RRR, no M/G/R Lungs: CTAB no W/C/R/R Abd: soft, NT/ND, +BS, no rebound, no guarding, neg HSM EXT: no edema, no ecchymosis, no clubbing, improving movement and strength Neuro: improving function - still with slight neuropathy, numbness Psych: good mentation, alert and oriented, good mood and affect Skin: C/D/I Results Result Diagram: 08/04/16 0456 08/04/16 0456 Results 24 hrs Laboratory Tests Test 08/04/16 04:56 Anion Gap 15 Basophils # 0.0 Basophils % 0.2 Blood Urea Nitrogen 13 Calcium Level 8.5 Carbon Dioxide Level 23 Chloride Level 107 Creatinine 0.79 Eosinophils # 0.3 Eosinophils % 2.4 Glucose Level 87 Hematocrit 29.2 L Hemoglobin 10.0 L Lymphocytes # 2.1 Lymphocytes % 16.5 Mean Corpuscular Hemoglobin 31.1 Mean Corpuscular Hemoglobin Concent 34.3 Mean Corpuscular Volume 90.6 Mean Platelet Volume 8.1 Monocytes # 1.5 H Monocytes % 12.1 H Neutrophils # 8.8 H Neutrophils % 68.8 Nucleated Red Blood Cells # 0.0 Nucleated Red Blood Cells % 0.0 Platelet Count 261 Potassium Level 3.9 Red Blood Count 3.23 L Red Cell Distribution Width 13.5 Sodium Level 141 White Blood Count 12.7 H Medications Medications Current Medications Oxycodone/ Acetaminophen (Percocet (5/ 325)) 1 tab Q4H PRN PO PAIN LEVEL 4-6 Last administered on 08/01/16 18:40; Admin Dose 1 TAB; Start 07/18/16 at 11:30 Oxycodone/ Acetaminophen (Percocet (5/ 325)) 2 tab Q4H PRN PO PAIN LEVEL 7-10 Last administered on 07/24/16 21:47; Admin Dose 2 TAB; Start 07/18/16 at 11:30 Simethicone 160 mg 160 mg Q8H PRN PO DISTENSION/GAS/BLOATING Last administered on 07/19/16 20:04; Admin Dose 160 MG; Start 07/18/16 at 11:30 Oxytocin/Lactated Ringer's 500 ml @ 0 mls/hr ONCE PRN IV For Hemorrhage Management; Start 07/18/16 at 11:30 Methylergonovine Maleate (Methergine) 0.2 mg ONCE PRN IM VAGINAL BLEEDING; Start 07/18/16 at 11:30 Carboprost Tromethamine (Hemabate) 250 mcg ONCE PRN IM VAGINAL BLEEDING; Start 07/18/16 at 11:30 Misoprostol (Cytotec) 1,000 mcg ONCE PRN [place] VAGINAL BLEEDING; Start 07/18/16 at 11:30 Acetaminophen/ Hydrocodone Bitart ([place] (5/325)) 1 tab Q4H PRN PO PAIN LEVEL 1 -5 Last administered on 08/03/16 20:39; Admin Dose 1 TAB; Start 07/22/16 at 15: 00 Acetaminophen/ Hydrocodone Bitart ([place] (5/325)) 2 tab Q4H PRN PO PAIN LEVEL 6 -10 Last administered on 07/25/16 09:05; Admin Dose 2 TAB; Start 07/22/16 at 15: 00 Ondansetron HCl (Zofran Inj) 4 mg Q6H PRN IV NAUSEA AND/OR VOMITING; Start 07/22 at 15:00 Docusate Sodium (Colace) 100 mg BID PO Last administered on 08/04/16 08:58; Admin Dose 100 MG; Start 07/22/16 at 15:00 Acetaminophen (Tylenol Tab) 650 mg Q4H PRN PO TEMP GREATER THAN 101F OR JONES Last administered on 08/03/16 14:45; Admin Dose 650 MG; Start 07/22/16 at 15:00 Ascorbic Acid (Vitamin C) 1,000 mg BID PO Last administered on 08/04/16 08:58 ; Admin Dose 1,000 MG; Start 07/23/16 at 09:00 Ferrous Sulfate (Ferrous Sulfate (Ec)) 325 mg TID PO Last administered on 08:58; Admin Dose 325 MG; Start 07/23/16 at 09:00 Diazepam (Valium) 5 mg Q4H PRN PO MUSCLE SPASMS Last administered on 07/25/16 09:05; Admin Dose 5 MG; Start 07/22/16 at 15:00 Phenol (Cepastat Lozenge) 1 lozenge PRN PRN [place] SORE THROAT; Start 07/22/16 at 15 :00 Diphenhydramine HCl (Benadryl) 50 mg Q6H PRN PO PRURITUS Last administered on 00:34; Admin Dose 50 MG; Start 07/22/16 at 15:00 Naloxone HCl 0.2 mg 0.2 mg Q2M PRN IV RR 8 BREATHS/MIN OR LESS; Start 07/22/16 at 15:00 Sodium Chloride 1,000 ml @ 75 mls/hr [id number] IV Last administered on 20:38; Admin Dose 75 MLS/HR; Start 08/01/16 at 11:00 Imipenem/ Cilastatin Sodium (Primaxin 500 Mg/ 100 ml (Pmx)) 100 ml @ 100 mls/ hr Q8 IVPB Last administered on 08/04/16 05:10; Admin Dose 100 MLS/HR; Start 08/01/16 at 22:00 Ibuprofen (Motrin) 600 mg Q6H PRN PO FEVER GREATER THAN 100.6 Last administered on 08/04/16 09:31; Admin Dose 600 MG; Start 08/03/16 at 11:00 THALIA CARRASQUILLO Aug 04, 2016 11:23
--- NOTE | 2016-08-04 11:35 | CONS ---
Date/Time of Note Date/Time of Note DATE: 08/04/16 TIME: 11:33 Assessment/Plan Assessment/Plan Chief Complaint/Hosp Course SUBJECTIVE: No events overnight. The patient is alert, sitting comfortably in a chair. Still with on and off fevers, but feels better, less R flank pain MICROBIOLOGY: Blood culture growing E. coli. Urine culture on admission grew Pseudomonas aeruginosa. DIAGNOSTICS: CT of the abdomen and pelvis yesterday revealed multifocal patchy areas of known enhancement involving the majority of the right kidney with perinephric stranding suggesting pyelonephritis, mild right hydroureteronephrosis without stone, small focal nonenhancing area in the upper pole of left kidney suggesting focal pyelonephritis with a questionable intrarenal abscess. Renal ultrasound revealed no evidence of focal drainable fluid collection abscess within either kidney. ANTIMICROBIALS: Imipenem. PHYSICAL EXAMINATION: GENERAL: A well-developed young woman who is alert, in no distress. HEENT: Head atraumatic, normocephalic. Sclerae anicteric. Buccal mucosa pink. NECK: Supple, trachea midline. CHEST: Rise symmetrical. Breath sounds clear. HEART: S1, S2. ABDOMEN: Soft. Bowel tones present. EXTREMITIES: Without cyanosis. ASSESSMENT: 1. Persistent fevers with persistent bacteremia, likely secondary to #2. 2. Acute pyelonephritis, questionable kidney abscess, patient is being followed by Dr. Armstrong. 3. Pseudomonas aeruginosa urinary tract infection on admission. 4. Postop day #13 status post C4-T4 laminectomy for epidural hematoma evacuation, neurosurgeon on case. MRI consistent with postoperative seroma. PLAN: The patient remains clinically stable. She is covered with appropriate antimicrobials, repeat bld cx negative. Will follow recommendations of consultants. DW staff Problems: Consultation Date/Type/Reason Admit Date/Time Jul 17, 2016 at 22:30 Type of Consultation: ID Referring Provider: NAVYA JACOB MD Exam/Review of Systems Vital Signs Vitals Vital Signs Date Time Temp Pulse Resp B/P Pulse Ox O2 Delivery O2 Flow Rate FiO2 08/04/16 07:33 100.0 72 20 130/71 98 08/03/16 17:35 Room Air Intake and Output 08/03/16 08/03/16 08/04/16 15:00 23:00 07:00 Intake Total 2110 ml 1900 ml Output Total 1250 ml Balance 2110 ml 650 ml Results Result Diagram: 08/04/16 0456 08/04/16 0456 Results 24 hrs Laboratory Tests Test 08/04/16 04:56 Anion Gap 15 Basophils # 0.0 Basophils % 0.2 Blood Urea Nitrogen 13 Calcium Level 8.5 Carbon Dioxide Level 23 Chloride Level 107 Creatinine 0.79 Eosinophils # 0.3 Eosinophils % 2.4 Glucose Level 87 Hematocrit 29.2 L Hemoglobin 10.0 L Lymphocytes # 2.1 Lymphocytes % 16.5 Mean Corpuscular Hemoglobin 31.1 Mean Corpuscular Hemoglobin Concent 34.3 Mean Corpuscular Volume 90.6 Mean Platelet Volume 8.1 Monocytes # 1.5 H Monocytes % 12.1 H Neutrophils # 8.8 H Neutrophils % 68.8 Nucleated Red Blood Cells # 0.0 Nucleated Red Blood Cells % 0.0 Platelet Count 261 Potassium Level 3.9 Red Blood Count 3.23 L Red Cell Distribution Width 13.5 Sodium Level 141 White Blood Count 12.7 H Medications Medications Current Medications Oxycodone/ Acetaminophen (Percocet (5/ 325)) 1 tab Q4H PRN PO PAIN LEVEL 4-6 Last administered on 08/01/16 18:40; Admin Dose 1 TAB; Start 07/18/16 at 11:30 Oxycodone/ Acetaminophen (Percocet (5/ 325)) 2 tab Q4H PRN PO PAIN LEVEL 7-10 Last administered on 07/24/16 21:47; Admin Dose 2 TAB; Start 07/18/16 at 11:30 Simethicone 160 mg 160 mg Q8H PRN PO DISTENSION/GAS/BLOATING Last administered on 07/19/16 20:04; Admin Dose 160 MG; Start 07/18/16 at 11:30 Oxytocin/Lactated Ringer's 500 ml @ 0 mls/hr ONCE PRN IV For Hemorrhage Management; Start 07/18/16 at 11:30 Methylergonovine Maleate (Methergine) 0.2 mg ONCE PRN IM VAGINAL BLEEDING; Start 07/18/16 at 11:30 Carboprost Tromethamine (Hemabate) 250 mcg ONCE PRN IM VAGINAL BLEEDING; Start 07/18/16 at 11:30 Misoprostol (Cytotec) 1,000 mcg ONCE PRN [place] VAGINAL BLEEDING; Start 07/18/16 at 11:30 Acetaminophen/ Hydrocodone Bitart ([place] (5/325)) 1 tab Q4H PRN PO PAIN LEVEL 1 -5 Last administered on 08/03/16 20:39; Admin Dose 1 TAB; Start 07/22/16 at 15: 00 Acetaminophen/ Hydrocodone Bitart ([place] (5/325)) 2 tab Q4H PRN PO PAIN LEVEL 6 -10 Last administered on 07/25/16 09:05; Admin Dose 2 TAB; Start 07/22/16 at 15: 00 Ondansetron HCl (Zofran Inj) 4 mg Q6H PRN IV NAUSEA AND/OR VOMITING; Start 07/22 at 15:00 Docusate Sodium (Colace) 100 mg BID PO Last administered on 08/04/16 08:58; Admin Dose 100 MG; Start 07/22/16 at 15:00 Acetaminophen (Tylenol Tab) 650 mg Q4H PRN PO TEMP GREATER THAN 101F OR JONES Last administered on 08/03/16 14:45; Admin Dose 650 MG; Start 07/22/16 at 15:00 Ascorbic Acid (Vitamin C) 1,000 mg BID PO Last administered on 08/04/16 08:58 ; Admin Dose 1,000 MG; Start 07/23/16 at 09:00 Ferrous Sulfate (Ferrous Sulfate (Ec)) 325 mg TID PO Last administered on 08:58; Admin Dose 325 MG; Start 07/23/16 at 09:00 Diazepam (Valium) 5 mg Q4H PRN PO MUSCLE SPASMS Last administered on 07/25/16 09:05; Admin Dose 5 MG; Start 07/22/16 at 15:00 Phenol (Cepastat Lozenge) 1 lozenge PRN PRN [place] SORE THROAT; Start 07/22/16 at 15 :00 Diphenhydramine HCl (Benadryl) 50 mg Q6H PRN PO PRURITUS Last administered on 00:34; Admin Dose 50 MG; Start 07/22/16 at 15:00 Naloxone HCl 0.2 mg 0.2 mg Q2M PRN IV RR 8 BREATHS/MIN OR LESS; Start 07/22/16 at 15:00 Sodium Chloride 1,000 ml @ 75 mls/hr [id number] IV Last administered on 20:38; Admin Dose 75 MLS/HR; Start 08/01/16 at 11:00 Imipenem/ Cilastatin Sodium (Primaxin 500 Mg/ 100 ml (Pmx)) 100 ml @ 100 mls/ hr Q8 IVPB Last administered on 08/04/16 05:10; Admin Dose 100 MLS/HR; Start 08/01/16 at 22:00 Ibuprofen (Motrin) 600 mg Q6H PRN PO FEVER GREATER THAN 100.6 Last administered on 08/04/16 09:31; Admin Dose 600 MG; Start 08/03/16 at 11:00 LIBBY GARZA NP Aug 04, 2016 11:35
[2016-08-04] MEDS: SOD CHLORIDE 0.9% 1,000 ML IV SCH (19:00)
[2016-08-04 19:20] VITALS: BP 152/93; RESP 18
[2016-08-04] MEDS: HYDROCODONE/APAP (5/325) TAB PO PRN (20:59)
[2016-08-05] MEDS: IMIPENEM-CILAST 500MG IV (PMX) 100 ML IVPB SCH ×3 (05:21→21:43)
[2016-08-05 05:41] LABS: BASOPHILS % 0.2 % (0.0-2.0); EOSINOPHILS # 0.2 10^3/ul (0.0-0.5); EOSINOPHILS % 1.9 % (0.0-7.0); HEMATOCRIT 28.6 % (37.0-47.0); HEMOGLOBIN 9.7 g/dl (12.0-16.0); LYMPHOCYTES # 2.1 10^3/ul (0.8-2.9); LYMPHOCYTES % 16.4 % (15.0-51.0); MEAN CORPUSCULAR HEMOGLOBIN 30.9 pg (29.0-33.0); MEAN CORPUSCULAR VOLUME 90.8 fl (82.0-101.0); MEAN PLATELET VOLUME 7.9 fl (7.4-10.4); MONOCYTE # 1.5 10^3/ul (0.3-0.9); MONOCYTES % 11.2 % (0.0-11.0); NEUTROPHIL # 9.2 10^3/ul (1.6-7.5); NEUTROPHILS % 70.3 % (39.0-77.0); PLATELET COUNT 297 10^3/UL (140-440); RED BLOOD COUNT 3.15 10^6/ul (4.20-5.40); RED CELL DISTRIBUTION WIDTH 13.8 % (11.5-14.5); UNCORRECTED WBC 13.1 10^3/ul (4.8-10.8); WHITE BLOOD COUNT 13.1 10^3/ul (4.8-10.8)
[2016-08-05 05:47] LABS: CONDITION 1
[2016-08-05 06:25] LABS: CREATININE 0.69 mg/dl (0.44-1.00)
[2016-08-05 06:26] LABS: CALCIUM 8.2 mg/dl (8.4-10.2)
[2016-08-05 08:32] VITALS: BP 136/79; RESP 20
[2016-08-05] MEDS: FERROUS SULFATE (EC) 325 MG TAB PO SCH ×3 (09:27→21:40)
[2016-08-05] MEDS: ASCORBIC ACID 500 MG TAB PO SCH ×2 (09:28→21:40)
[2016-08-05] MEDS: DOCUSATE SODIUM 100 MG CAP PO SCH ×2 (09:28→21:40)
[2016-08-05] MEDS: SOD CHLORIDE 0.9% 1,000 ML IV SCH ×2 (09:29→21:40)
--- NOTE | 2016-08-05 10:52 | PN ---
Date/Time of Note Date/Time of Note DATE: 08/05/16 TIME: 10:48 Assessment/Plan VTE Prophylaxis VTE Prophylaxis Intervention: contraindicated VTE Contraindication Reason: bleeding Lines/Catheters IV Catheter Type (from Nrsg): Peripheral IV Urinary Cath still in place: No Assessment/Plan Chief Complaint/Hosp Course Assessment/Plan: 25 F with: 1. Cervical-thoracic epidural hematoma: s/p evacuation/laminectomy C4-T4 POD # 14 - MRI C spine showed: resolution of multilevel spinal canal stenosis and spinal cord impingement as noted on prior MRI. There is a dorsal subcutaneous peripheral enhancing fluid collection extending to the skin surface which likely represents a postoperative seroma. - f/u NSS rec's, monitor drain. 2. Extremity weakness/numbness, 2/2 above - improved - f/u Neuro rec's, Rehab for PT needed 3. Anemia: likely 2/2 blood loss: H/H stable - monitor closely and transfuse as needed 4. Sepsis: + fevers, + blood cx 4/4 bottles for E coli. Again CT scam shows pyelonephritis and questionable L kidney abscess. consulted as well. - continue tylenol, Motrin, IVF's, abx, f/u ID and consult rec's - conservative tx for now, abx and pain meds Further recommendation based on clinical course. - possible d/c to half-way for rehab - [facility] - based on insurance - will follow up with CM on this. Problems: Subjective 24 Hr Interval Summary Free Text/Dictation Pt asking about breasting feeding, otherwise less fever in last 24 hrs. Exam/Review of Systems Vital Signs Vitals Vital Signs Date Time Temp Pulse Resp B/P Pulse Ox O2 Delivery O2 Flow Rate FiO2 08/05/16 08:32 97.7 62 20 136/79 98 08/03/16 17:35 Room Air Intake and Output 08/04/16 08/04/16 08/05/16 15:00 23:00 07:00 Intake Total 900 ml Output Total 1250 ml Balance -350 ml Exam Gen Stefano: less distress, AAOx4 HEENT: NC/AT, PERRLA, EOMI NECK: with cervical collar THORAX: symmetrical, no obvious deformities CV: S1S2, RRR, no M/G/R Lungs: CTAB no W/C/R/R Abd: soft, NT/ND, +BS, no rebound, no guarding, neg HSM EXT: no edema, no ecchymosis, no clubbing, improving movement and strength Neuro: improving function - still with slight neuropathy, numbness Psych: good mentation, alert and oriented, good mood and affect Skin: C/D/I Results Result Diagram: 08/05/164 08/05/16 0424 Results 24 hrs Laboratory Tests Test 08/05/16 04:24 Anion Gap 14 Basophils # 0.0 Basophils % 0.2 Blood Urea Nitrogen 14 Calcium Level 8.2 L Carbon Dioxide Level 22 Chloride Level 109 Creatinine 0.69 Eosinophils # 0.2 Eosinophils % 1.9 Glucose Level 100 Hematocrit 28.6 L Hemoglobin 9.7 L Lymphocytes # 2.1 Lymphocytes % 16.4 Mean Corpuscular Hemoglobin 30.9 Mean Corpuscular Hemoglobin Concent 34.0 Mean Corpuscular Volume 90.8 Mean Platelet Volume 7.9 Monocytes # 1.5 H Monocytes % 11.2 H Neutrophils # 9.2 H Neutrophils % 70.3 Nucleated Red Blood Cells # 0.0 Nucleated Red Blood Cells % 0.0 Platelet Count 297 Potassium Level 4.0 Red Blood Count 3.15 L Red Cell Distribution Width 13.8 Sodium Level 141 White Blood Count 13.1 H Medications Medications Current Medications Oxycodone/ Acetaminophen (Percocet (5/ 325)) 1 tab Q4H PRN PO PAIN LEVEL 4-6 Last administered on 08/01/16 18:40; Admin Dose 1 TAB; Start 07/18/16 at 11:30 Oxycodone/ Acetaminophen (Percocet (5/ 325)) 2 tab Q4H PRN PO PAIN LEVEL 7-10 Last administered on 07/24/16 21:47; Admin Dose 2 TAB; Start 07/18/16 at 11:30 Simethicone 160 mg 160 mg Q8H PRN PO DISTENSION/GAS/BLOATING Last administered on 07/19/16 20:04; Admin Dose 160 MG; Start 07/18/16 at 11:30 Oxytocin/Lactated Ringer's 500 ml @ 0 mls/hr ONCE PRN IV For Hemorrhage Management; Start 07/18/16 at 11:30 Methylergonovine Maleate (Methergine) 0.2 mg ONCE PRN [place] VAGINAL BLEEDING; Start 07/18/16 at 11:30 Carboprost Tromethamine (Hemabate) 250 mcg ONCE PRN IM VAGINAL BLEEDING; Start 07/18/16 at 11:30 Misoprostol (Cytotec) 1,000 mcg ONCE PRN [place] VAGINAL BLEEDING; Start 07/18/16 at 11:30 Acetaminophen/ Hydrocodone Bitart ([place] (5/325)) 1 tab Q4H PRN PO PAIN LEVEL 1 -5 Last administered on 08/04/16 20:59; Admin Dose 1 TAB; Start 07/22/16 at 15: 00 Acetaminophen/ Hydrocodone Bitart ([place] (5/325)) 2 tab Q4H PRN PO PAIN LEVEL 6 -10 Last administered on 07/25/16 09:05; Admin Dose 2 TAB; Start 07/22/16 at 15: 00 Ondansetron HCl (Zofran Inj) 4 mg Q6H PRN IV NAUSEA AND/OR VOMITING; Start 07/22 at 15:00 Docusate Sodium (Colace) 100 mg BID PO Last administered on 08/05/16 09:28; Admin Dose 100 MG; Start 07/22/16 at 15:00 Acetaminophen (Tylenol Tab) 650 mg Q4H PRN PO TEMP GREATER THAN 101F OR JONES Last administered on 08/03/16 14:45; Admin Dose 650 MG; Start 07/22/16 at 15:00 Ascorbic Acid (Vitamin C) 1,000 mg BID PO Last administered on 08/05/16 09:28 ; Admin Dose 1,000 MG; Start 07/23/16 at 09:00 Ferrous Sulfate (Ferrous Sulfate (Ec)) 325 mg TID PO Last administered on 09:27; Admin Dose 325 MG; Start 07/23/16 at 09:00 Diazepam (Valium) 5 mg Q4H PRN PO MUSCLE SPASMS Last administered on 07/25/16 09:05; Admin Dose 5 MG; Start 07/22/16 at 15:00 Phenol (Cepastat Lozenge) 1 lozenge PRN PRN [place] SORE THROAT; Start 07/22/16 at 15 :00 Diphenhydramine HCl (Benadryl) 50 mg Q6H PRN PO PRURITUS Last administered on 00:34; Admin Dose 50 MG; Start 07/22/16 at 15:00 Naloxone HCl 0.2 mg 0.2 mg Q2M PRN IV RR 8 BREATHS/MIN OR LESS; Start 07/22/16 at 15:00 Sodium Chloride 1,000 ml @ 75 mls/hr [id number] IV Last administered on 09:29; Admin Dose 75 MLS/HR; Start 08/01/16 at 11:00 Imipenem/ Cilastatin Sodium (Primaxin 500 Mg/ 100 ml (Pmx)) 100 ml @ 100 mls/ hr Q8 IVPB Last administered on 08/05/16 05:21; Admin Dose 100 MLS/HR; Start 08/01/16 at 22:00 Ibuprofen (Motrin) 600 mg Q6H PRN PO FEVER GREATER THAN 100.6 Last administered on 08/04/16 22:28; Admin Dose 600 MG; Start 08/03/16 at 11:00 Lidocaine (Xylocaine 1% (Mdv) 20 ml) 20 ml ONCE ONCE SC ; Start 08/05/16 at 11: 00; Stop 08/05/16 at 11:01; Status UNTHALIA GREENFIELD Aug 05, 2016 10:52
[2016-08-05] MEDS ORDERED: LIDOCAINE 1% (MDV) 20 ML INJ SC ONE (11:00)
--- NOTE | 2016-08-05 13:13 | CONS ---
Date/Time of Note Date/Time of Note DATE: 08/05/16 TIME: 13:12 Assessment/Plan Assessment/Plan Chief Complaint/Hosp Course SUBJECTIVE: No events overnight. The patient is alert, feels better, no fevers MICROBIOLOGY: Blood culture growing E. coli. Urine culture on admission grew Pseudomonas aeruginosa. DIAGNOSTICS: CT of the abdomen and pelvis yesterday revealed multifocal patchy areas of known enhancement involving the majority of the right kidney with perinephric stranding suggesting pyelonephritis, mild right hydroureteronephrosis without stone, small focal nonenhancing area in the upper pole of left kidney suggesting focal pyelonephritis with a questionable intrarenal abscess. Renal ultrasound revealed no evidence of focal drainable fluid collection abscess within either kidney. ANTIMICROBIALS: Imipenem. PHYSICAL EXAMINATION: GENERAL: A well-developed young woman who is alert, in no distress. HEENT: Head atraumatic, normocephalic. Sclerae anicteric. Buccal mucosa pink. NECK: Supple, trachea midline. CHEST: Rise symmetrical. Breath sounds clear. HEART: S1, S2. ABDOMEN: Soft. Bowel tones present. EXTREMITIES: Without cyanosis. ASSESSMENT: 1. Persistent fevers with persistent bacteremia, likely secondary to #2. 2. Acute pyelonephritis, questionable kidney abscess, patient is being followed by Dr. Armstrong. 3. Pseudomonas aeruginosa urinary tract infection on admission. 4. Postop day #13 status post C4-T4 laminectomy for epidural hematoma evacuation, neurosurgeon on case. MRI consistent with postoperative seroma. PLAN: The patient remains clinically stable. Fevers improving. She is covered with appropriate antimicrobials, repeat bld cx negative. Will follow recommendations of consultants. DW staff Problems: Consultation Date/Type/Reason Admit Date/Time Jul 17, 2016 at 22:30 Type of Consultation: ID Referring Provider: NAVYA JACOB MD Exam/Review of Systems Vital Signs Vitals Vital Signs Date Time Temp Pulse Resp B/P Pulse Ox O2 Delivery O2 Flow Rate FiO2 08/05/16 08:32 97.7 62 20 136/79 98 08/03/16 17:35 Room Air Intake and Output 08/04/16 08/04/16 08/05/16 15:00 23:00 07:00 Intake Total 900 ml Output Total 1250 ml Balance -350 ml Results Result Diagram: 08/05/16 0424 08/05/16 0424 Results 24 hrs Laboratory Tests Test 08/05/16 04:24 Anion Gap 14 Basophils # 0.0 Basophils % 0.2 Blood Urea Nitrogen 14 Calcium Level 8.2 L Carbon Dioxide Level 22 Chloride Level 109 Creatinine 0.69 Eosinophils # 0.2 Eosinophils % 1.9 Glucose Level 100 Hematocrit 28.6 L Hemoglobin 9.7 L Lymphocytes # 2.1 Lymphocytes % 16.4 Mean Corpuscular Hemoglobin 30.9 Mean Corpuscular Hemoglobin Concent 34.0 Mean Corpuscular Volume 90.8 Mean Platelet Volume 7.9 Monocytes # 1.5 H Monocytes % 11.2 H Neutrophils # 9.2 H Neutrophils % 70.3 Nucleated Red Blood Cells # 0.0 Nucleated Red Blood Cells % 0.0 Platelet Count 297 Potassium Level 4.0 Red Blood Count 3.15 L Red Cell Distribution Width 13.8 Sodium Level 141 White Blood Count 13.1 H Medications Medications Current Medications Oxycodone/ Acetaminophen (Percocet (5/ 325)) 1 tab Q4H PRN PO PAIN LEVEL 4-6 Last administered on 08/01/16 18:40; Admin Dose 1 TAB; Start 07/18/16 at 11:30 Oxycodone/ Acetaminophen (Percocet (5/ 325)) 2 tab Q4H PRN PO PAIN LEVEL 7-10 Last administered on 07/24/16 21:47; Admin Dose 2 TAB; Start 07/18/16 at 11:30 Simethicone 160 mg 160 mg Q8H PRN PO DISTENSION/GAS/BLOATING Last administered on 07/19/16 20:04; Admin Dose 160 MG; Start 07/18/16 at 11:30 Oxytocin/Lactated Ringer's 500 ml @ 0 mls/hr ONCE PRN IV For Hemorrhage Management; Start 07/18/16 at 11:30 Methylergonovine Maleate (Methergine) 0.2 mg ONCE PRN IM VAGINAL BLEEDING; Start 07/18/16 at 11:30 Carboprost Tromethamine (Hemabate) 250 mcg ONCE PRN IM VAGINAL BLEEDING; Start 07/18/16 at 11:30 Misoprostol (Cytotec) 1,000 mcg ONCE PRN [place] VAGINAL BLEEDING; Start 07/18/16 at 11:30 Acetaminophen/ Hydrocodone Bitart ([place] (5/325)) 1 tab Q4H PRN PO PAIN LEVEL 1 -5 Last administered on 08/04/16 20:59; Admin Dose 1 TAB; Start 07/22/16 at 15: 00 Acetaminophen/ Hydrocodone Bitart ([place] (5/325)) 2 tab Q4H PRN PO PAIN LEVEL 6 -10 Last administered on 07/25/16 09:05; Admin Dose 2 TAB; Start 07/22/16 at 15: 00 Ondansetron HCl (Zofran Inj) 4 mg Q6H PRN IV NAUSEA AND/OR VOMITING; Start 07/22 at 15:00 Docusate Sodium (Colace) 100 mg BID PO Last administered on 08/05/16 09:28; Admin Dose 100 MG; Start 07/22/16 at 15:00 Acetaminophen (Tylenol Tab) 650 mg Q4H PRN PO TEMP GREATER THAN 101F OR JONES Last administered on 08/03/16 14:45; Admin Dose 650 MG; Start 07/22/16 at 15:00 Ascorbic Acid (Vitamin C) 1,000 mg BID PO Last administered on 08/05/16 09:28 ; Admin Dose 1,000 MG; Start 07/23/16 at 09:00 Ferrous Sulfate (Ferrous Sulfate (Ec)) 325 mg TID PO Last administered on 09:27; Admin Dose 325 MG; Start 07/23/16 at 09:00 Diazepam (Valium) 5 mg Q4H PRN PO MUSCLE SPASMS Last administered on 07/25/16 09:05; Admin Dose 5 MG; Start 07/22/16 at 15:00 Phenol (Cepastat Lozenge) 1 lozenge PRN PRN MT SORE THROAT; Start 07/22/16 at 15 :00 Diphenhydramine HCl (Benadryl) 50 mg Q6H PRN PO PRURITUS Last administered on 00:34; Admin Dose 50 MG; Start 07/22/16 at 15:00 Naloxone HCl 0.2 mg 0.2 mg Q2M PRN IV RR 8 BREATHS/MIN OR LESS; Start 07/22/16 at 15:00 Sodium Chloride 1,000 ml @ 75 mls/hr [id number] IV Last administered on 09:29; Admin Dose 75 MLS/HR; Start 08/01/16 at 11:00 Imipenem/ Cilastatin Sodium (Primaxin 500 Mg/ 100 ml (Pmx)) 100 ml @ 100 mls/ hr Q8 IVPB Last administered on 08/05/16 05:21; Admin Dose 100 MLS/HR; Start 08/01/16 at 22:00 Ibuprofen (Motrin) 600 mg Q6H PRN PO FEVER GREATER THAN 100.6 Last administered on 08/04/16 22:28; Admin Dose 600 MG; Start 08/03/16 at 11:00 LIBBY GARZA [employer]TER Aug 05, 2016 13:13
[2016-08-05] MEDS ORDERED: SOD CHLORIDE 0.9% 100 ML ONE (13:37)
--- NOTE | 2016-08-05 14:12 | RADRPT ---
PROCEDURE: XR Chest. CLINICAL INDICATION: PICC line catheter placement. TECHNIQUE: Single frontal view of the chest was obtained COMPARISON: No. FINDINGS: The soft tissues are normal. The bony elements are normal. The heart, left side aorta, cardiomedias tinal silhouette, pulmonary vasculature and hilar structures are normal. The lungs are clear. The co stophrenic angles are normal. A PICC line catheter enters the left arm with its tip at the junction between the right atrium and superior vena cava. No pneumothorax is present. IMPRESSION: 1. The PICC line catheter is well positioned at the right atrial, superior vena cava junction. 2. Otherwise, unremarkable chest x-ray. RPTAT:AAJJ Physician Erwin Date Time Electronically viewed and signed by Vasiliy Baires Physician on 08/05/2016 14:12 /
--- NOTE | 2016-08-05 14:33 | RADRPT ---
PROCEDURE: US guidance for PICC line CLINICAL INDICATION: PICC line placement TECHNIQUE: Multiple real-time images were acquired of the patient's arm utilizing a high resolutio n transducer. This was performed by the PICC line nurse for venous access. COMPARISON: None FINDINGS: Ultrasound guidance for PICC line placement. IMPRESSION: Ultrasound guidance for PICC line placement. RPTAT: AA .Herb Castro MD, MD Date Time Electronically viewed and signed by .Herb Castro MD, on 08/05/2016 14:33 .S/
--- NOTE | 2016-08-05 16:58 | PN ---
DATE: 08/05/2016 SUBJECTIVE: The patient does have left flank pain and she has urinary tract infection and bilateral pyelonephritis. There was a question of a small area of abscess in the left kidney, however, and t he ultrasound did not show any drainable mass. The patient now feels better. She denies having any dysuria and she is comfortable. OBJECTIVE: VITAL SIGNS: Temperature is 97.7. The pulse is 62, respirations 20, blood pressure 136/79. LABORATORY DATA: The urine culture done from 08/03/2016, 2 days ago, is no growth after 48 hours. The patient has been on Primaxin when the culture was obtained; therefore, I am not surprised that t he culture did not grow anything. However, her urine culture on admission showed Pseudomonas aerugi nosa and her blood cultures show that they were positive for E. coli. The CBC today shows a white c ount of 13.1, hemoglobin 9.7, hematocrit 28.6. BUN is 14, creatinine 0.69. Electrolytes are normal . IMPRESSION: Bilateral pyelonephritis that is responding well to the Primaxin. RECOMMENDATION: To continue the present treatment. Dictated By: MARC SCOTT/BEE Conf#: [id number] DID#: [id number]
[2016-08-05] MEDS: IBUPROFEN 600 MG TAB PO PRN (21:40)
[2016-08-06] MEDS: SOD CHLORIDE 0.9% 1,000 ML IV SCH ×2 (04:45→23:24)
[2016-08-06 05:54] LABS: BASOPHILS % 0.4 % (0.0-2.0); EOSINOPHILS # 0.4 10^3/ul (0.0-0.5); EOSINOPHILS % 2.9 % (0.0-7.0); HEMATOCRIT 27.9 % (37.0-47.0); HEMOGLOBIN 9.7 g/dl (12.0-16.0); LYMPHOCYTES # 2.9 10^3/ul (0.8-2.9); LYMPHOCYTES % 23.9 % (15.0-51.0); MEAN CORPUSCULAR HEMOGLOBIN 31.5 pg (29.0-33.0); MEAN CORPUSCULAR HGB CONC 34.6 g/dl (32.0-37.0); MEAN CORPUSCULAR VOLUME 90.9 fl (82.0-101.0); MEAN PLATELET VOLUME 7.7 fl (7.4-10.4); MONOCYTE # 1.2 10^3/ul (0.3-0.9); MONOCYTES % 10.4 % (0.0-11.0); NEUTROPHIL # 7.5 10^3/ul (1.6-7.5); NEUTROPHILS % 62.4 % (39.0-77.0); PLATELET COUNT 367 10^3/UL (140-440); RED BLOOD COUNT 3.07 10^6/ul (4.20-5.40); RED CELL DISTRIBUTION WIDTH 13.5 % (11.5-14.5)
[2016-08-06 06:15] LABS: CREATININE 0.69 mg/dl (0.44-1.00)
[2016-08-06 06:16] LABS: CALCIUM 8.5 mg/dl (8.4-10.2)
[2016-08-06 06:17] LABS: CONDITION 1
[2016-08-06] MEDS: IMIPENEM-CILAST 500MG IV (PMX) 100 ML IVPB SCH ×3 (06:17→21:22)
[2016-08-06 07:39] VITALS: BP 126/82; RESP 16
[2016-08-06] MEDS: FERROUS SULFATE (EC) 325 MG TAB PO SCH ×3 (09:01→21:21)
[2016-08-06] MEDS: DOCUSATE SODIUM 100 MG CAP PO SCH ×2 (09:01→21:21)
[2016-08-06] MEDS: ASCORBIC ACID 500 MG TAB PO SCH ×2 (09:01→21:21)
--- NOTE | 2016-08-06 11:39 | PN ---
DATE: 08/06/2016 SUBJECTIVE: The patient has symptoms of dysuria and urinary tract infection and bilateral pyeloneph ritis. The patient is feeling better and there is no dysuria as she does urinate. The repeated uri ne culture is negative. The patient's renal ultrasound did not show any drainable area in the kidne y. OBJECTIVE: VITAL SIGNS: Temperature is 98.1, pulse is 81, respirations 16, blood pressure 126/82. ABDOMEN: Soft. There is no tenderness over both flank areas. IMPRESSION: Resolving pyelonephritis and well controlled. Her repeated urine culture is negative and patient is on Primaxin. RECOMMENDATION: To continue the Primaxin. Dictated By: MARC SCOTT/BEE Conf#: [id number] DID#: [id number]
--- NOTE | 2016-08-06 11:56 | PN ---
Date/Time of Note Date/Time of Note DATE: 08/06/16 TIME: 11:54 Assessment/Plan VTE Prophylaxis VTE Prophylaxis Intervention: contraindicated VTE Contraindication Reason: bleeding Lines/Catheters IV Catheter Type (from Nrsg): PICC Line Central line still needed: Yes Urinary Cath still in place: No Assessment/Plan Chief Complaint/Hosp Course Assessment/Plan: 25 F with: 1. Cervical-thoracic epidural hematoma: s/p evacuation/laminectomy C4-T4 POD # 15 - MRI C spine showed: resolution of multilevel spinal canal stenosis and spinal cord impingement as noted on prior MRI. There is a dorsal subcutaneous peripheral enhancing fluid collection extending to the skin surface which likely represents a postoperative seroma. - f/u NSS rec's, monitor drain. 2. Extremity weakness/numbness, 2/2 above - improved - f/u Neuro rec's, Rehab for PT needed 3. Anemia: likely 2/2 blood loss: H/H stable - monitor closely and transfuse as needed 4. Sepsis: + fevers, + blood cx 4/4 bottles for E coli. Again CT scam shows pyelonephritis and questionable L kidney abscess. consulted as well. - continue tylenol, Motrin, IVF's, abx, f/u ID and consult rec's - conservative tx for now with IV abx and pain meds Further recommendation based on clinical course. - possible d/c to [facility] for rehab - [facility] - based on insurance - will follow up with CM on this. Problems: Subjective 24 Hr Interval Summary Free Text/Dictation Seen by and ID teams, less abd pain. Has PICC now. Exam/Review of Systems Vital Signs Vitals Vital Signs Date Time Temp Pulse Resp B/P Pulse Ox O2 Delivery O2 Flow Rate FiO2 08/06/16 07:39 98.1 81 16 126/82 95 08/03/16 17:35 Room Air Intake and Output 08/05/16 08/05/16 08/06/16 15:00 23:00 07:00 Intake Total 2800 ml 300 ml Balance 2800 ml 300 ml Exam Gen Stefano: less distress, AAOx4 HEENT: NC/AT, PERRLA, EOMI NECK: with cervical collar THORAX: symmetrical, no obvious deformities CV: S1S2, RRR, no M/G/R Lungs: CTAB no W/C/R/R Abd: soft, NT/ND, +BS, no rebound, no guarding, neg HSM EXT: no edema, no ecchymosis, no clubbing, improving movement and strength Neuro: improving function - still with slight neuropathy, numbness Psych: good mentation, alert and oriented, good mood and affect Skin: C/D/I Results Result Diagram: 08/06/164 08/06/164 Results 24 hrs Laboratory Tests Test 08/06/16 04:44 Anion Gap 14 Basophils # 0.0 Basophils % 0.4 Blood Urea Nitrogen 11 Calcium Level 8.5 Carbon Dioxide Level 24 Chloride Level 110 Creatinine 0.69 Eosinophils # 0.4 Eosinophils % 2.9 Glucose Level 85 Hematocrit 27.9 L Hemoglobin 9.7 L Lymphocytes # 2.9 Lymphocytes % 23.9 Mean Corpuscular Hemoglobin 31.5 Mean Corpuscular Hemoglobin Concent 34.6 Mean Corpuscular Volume 90.9 Mean Platelet Volume 7.7 Monocytes # 1.2 H Monocytes % 10.4 Neutrophils # 7.5 Neutrophils % 62.4 Nucleated Red Blood Cells # 0.0 Nucleated Red Blood Cells % 0.0 Platelet Count 367 # Potassium Level 4.0 Red Blood Count 3.07 L Red Cell Distribution Width 13.5 Sodium Level 144 White Blood Count 12.0 H Medications Medications Current Medications Oxycodone/ Acetaminophen (Percocet (5/ 325)) 1 tab Q4H PRN PO PAIN LEVEL 4-6 Last administered on 08/01/16 18:40; Admin Dose 1 TAB; Start 07/18/16 at 11:30 Oxycodone/ Acetaminophen (Percocet (5/ 325)) 2 tab Q4H PRN PO PAIN LEVEL 7-10 Last administered on 07/24/16 21:47; Admin Dose 2 TAB; Start 07/18/16 at 11:30 Simethicone 160 mg 160 mg Q8H PRN PO DISTENSION/GAS/BLOATING Last administered on 07/19/16 20:04; Admin Dose 160 MG; Start 07/18/16 at 11:30 Oxytocin/Lactated Ringer's 500 ml @ 0 mls/hr ONCE PRN IV For Hemorrhage Management; Start 07/18/16 at 11:30 Methylergonovine Maleate (Methergine) 0.2 mg ONCE PRN IM VAGINAL BLEEDING; Start 07/18/16 at 11:30 Carboprost Tromethamine (Hemabate) 250 mcg ONCE PRN IM VAGINAL BLEEDING; Start 07/18/16 at 11:30 Misoprostol (Cytotec) 1,000 mcg ONCE PRN [place] VAGINAL BLEEDING; Start 07/18/16 at 11:30 Acetaminophen/ Hydrocodone Bitart ([place] (5/325)) 1 tab Q4H PRN PO PAIN LEVEL 1 -5 Last administered on 08/04/16 20:59; Admin Dose 1 TAB; Start 07/22/16 at 15: 00 Acetaminophen/ Hydrocodone Bitart ([place] (5/325)) 2 tab Q4H PRN PO PAIN LEVEL 6 -10 Last administered on 07/25/16 09:05; Admin Dose 2 TAB; Start 07/22/16 at 15: 00 Ondansetron HCl (Zofran Inj) 4 mg Q6H PRN IV NAUSEA AND/OR VOMITING; Start 07/22 at 15:00 Docusate Sodium (Colace) 100 mg BID PO Last administered on 08/06/16 09:01; Admin Dose 100 MG; Start 07/22/16 at 15:00 Acetaminophen (Tylenol Tab) 650 mg Q4H PRN PO TEMP GREATER THAN 101F OR JONES Last administered on 08/03/16 14:45; Admin Dose 650 MG; Start 07/22/16 at 15:00 Ascorbic Acid (Vitamin C) 1,000 mg BID PO Last administered on 08/06/16 09:01 ; Admin Dose 1,000 MG; Start 07/23/16 at 09:00 Ferrous Sulfate (Ferrous Sulfate (Ec)) 325 mg TID PO Last administered on 09:01; Admin Dose 325 MG; Start 07/23/16 at 09:00 Diazepam (Valium) 5 mg Q4H PRN PO MUSCLE SPASMS Last administered on 07/25/16 09:05; Admin Dose 5 MG; Start 07/22/16 at 15:00 Phenol (Cepastat Lozenge) 1 lozenge PRN PRN MT SORE THROAT; Start 07/22/16 at 15 :00 Diphenhydramine HCl (Benadryl) 50 mg Q6H PRN PO PRURITUS Last administered on 00:34; Admin Dose 50 MG; Start 07/22/16 at 15:00 Naloxone HCl 0.2 mg 0.2 mg Q2M PRN IV RR 8 BREATHS/MIN OR LESS; Start 07/22/16 at 15:00 Sodium Chloride 1,000 ml @ 75 mls/hr [id number] IV Last administered on 04:45; Admin Dose 75 MLS/HR; Start 08/01/16 at 11:00 Imipenem/ Cilastatin Sodium (Primaxin 500 Mg/ 100 ml (Pmx)) 100 ml @ 100 mls/ hr Q8 IVPB Last administered on 08/06/16 06:17; Admin Dose 100 MLS/HR; Start 08/01/16 at 22:00 Ibuprofen (Motrin) 600 mg Q6H PRN PO FEVER GREATER THAN 100.6 Last administered on 08/05/16 21:40; Admin Dose 600 MG; Start 08/03/16 at 11:00 IV Flush (NS 10 ml) 10 ml PRN PRN IV IV PROTOCOL Last administered on 21:45; Admin Dose 10 ML; Start 08/05/16 at 14:00 THALIA CARRASQUILLO Aug 06, 2016 11:56
--- NOTE | 2016-08-06 14:10 | CONS ---
Date/Time of Note Date/Time of Note DATE: 08/06/16 TIME: 14:09 Assessment/Plan Assessment/Plan Chief Complaint/Hosp Course SUBJECTIVE: No events overnight. The patient is alert, feels better, no fevers MICROBIOLOGY: Blood culture growing E. coli. Urine culture on admission grew Pseudomonas aeruginosa. DIAGNOSTICS: CT of the abdomen and pelvis yesterday revealed multifocal patchy areas of known enhancement involving the majority of the right kidney with perinephric stranding suggesting pyelonephritis, mild right hydroureteronephrosis without stone, small focal nonenhancing area in the upper pole of left kidney suggesting focal pyelonephritis with a questionable intrarenal abscess. Renal ultrasound revealed no evidence of focal drainable fluid collection abscess within either kidney. ANTIMICROBIALS: Imipenem. PHYSICAL EXAMINATION: GENERAL: A well-developed young woman who is alert, in no distress. HEENT: Head atraumatic, normocephalic. Sclerae anicteric. Buccal mucosa pink. NECK: Supple, trachea midline. CHEST: Rise symmetrical. Breath sounds clear. HEART: S1, S2. ABDOMEN: Soft. Bowel tones present. EXTREMITIES: Without cyanosis. ASSESSMENT: 1. Persistent fevers with persistent bacteremia, likely secondary to #2. 2. Acute pyelonephritis, questionable kidney abscess, patient is being followed by Dr. Armstrong. 3. Pseudomonas aeruginosa urinary tract infection on admission. 4. Postop day #14 status post C4-T4 laminectomy for epidural hematoma evacuation, neurosurgeon on case. MRI consistent with postoperative seroma. PLAN: Improving. Repeat bld cx negative. Continue abx. DW staff Problems: Consultation Date/Type/Reason Admit Date/Time Jul 17, 2016 at 22:30 Type of Consultation: ID Referring Provider: NAVYA JACOB MD Exam/Review of Systems Vital Signs Vitals Vital Signs Date Time Temp Pulse Resp B/P Pulse Ox O2 Delivery O2 Flow Rate FiO2 08/06/16 07:39 98.1 81 16 126/82 95 08/03/16 17:35 Room Air Intake and Output 08/05/16 08/05/16 08/06/16 15:00 23:00 07:00 Intake Total 2800 ml 300 ml Balance 2800 ml 300 ml Results Result Diagram: 08/06/16 0444 08/06/16 0444 Results 24 hrs Laboratory Tests Test 08/06/16 04:44 Anion Gap 14 Basophils # 0.0 Basophils % 0.4 Blood Urea Nitrogen 11 Calcium Level 8.5 Carbon Dioxide Level 24 Chloride Level 110 Creatinine 0.69 Eosinophils # 0.4 Eosinophils % 2.9 Glucose Level 85 Hematocrit 27.9 L Hemoglobin 9.7 L Lymphocytes # 2.9 Lymphocytes % 23.9 Mean Corpuscular Hemoglobin 31.5 Mean Corpuscular Hemoglobin Concent 34.6 Mean Corpuscular Volume 90.9 Mean Platelet Volume 7.7 Monocytes # 1.2 H Monocytes % 10.4 Neutrophils # 7.5 Neutrophils % 62.4 Nucleated Red Blood Cells # 0.0 Nucleated Red Blood Cells % 0.0 Platelet Count 367 # Potassium Level 4.0 Red Blood Count 3.07 L Red Cell Distribution Width 13.5 Sodium Level 144 White Blood Count 12.0 H Medications Medications Current Medications Oxycodone/ Acetaminophen (Percocet (5/ 325)) 1 tab Q4H PRN PO PAIN LEVEL 4-6 Last administered on 08/01/16 18:40; Admin Dose 1 TAB; Start 07/18/16 at 11:30 Oxycodone/ Acetaminophen (Percocet (5/ 325)) 2 tab Q4H PRN PO PAIN LEVEL 7-10 Last administered on 07/24/16 21:47; Admin Dose 2 TAB; Start 07/18/16 at 11:30 Simethicone 160 mg 160 mg Q8H PRN PO DISTENSION/GAS/BLOATING Last administered on 07/19/16 20:04; Admin Dose 160 MG; Start 07/18/16 at 11:30 Oxytocin/Lactated Ringer's 500 ml @ 0 mls/hr ONCE PRN IV For Hemorrhage Management; Start 07/18/16 at 11:30 Methylergonovine Maleate (Methergine) 0.2 mg ONCE PRN IM VAGINAL BLEEDING; Start 07/18/16 at 11:30 Carboprost Tromethamine (Hemabate) 250 mcg ONCE PRN IM VAGINAL BLEEDING; Start 07/18/16 at 11:30 Misoprostol (Cytotec) 1,000 mcg ONCE PRN [place] VAGINAL BLEEDING; Start 07/18/16 at 11:30 Acetaminophen/ Hydrocodone Bitart ([place] (5/325)) 1 tab Q4H PRN PO PAIN LEVEL 1 -5 Last administered on 08/04/16 20:59; Admin Dose 1 TAB; Start 07/22/16 at 15: 00 Acetaminophen/ Hydrocodone Bitart ([place] (5/325)) 2 tab Q4H PRN PO PAIN LEVEL 6 -10 Last administered on 07/25/16 09:05; Admin Dose 2 TAB; Start 07/22/16 at 15: 00 Ondansetron HCl (Zofran Inj) 4 mg Q6H PRN IV NAUSEA AND/OR VOMITING; Start 07/22 at 15:00 Docusate Sodium (Colace) 100 mg BID PO Last administered on 08/06/16 09:01; Admin Dose 100 MG; Start 07/22/16 at 15:00 Acetaminophen (Tylenol Tab) 650 mg Q4H PRN PO TEMP GREATER THAN 101F OR JONES Last administered on 08/03/16 14:45; Admin Dose 650 MG; Start 07/22/16 at 15:00 Ascorbic Acid (Vitamin C) 1,000 mg BID PO Last administered on 08/06/16 09:01 ; Admin Dose 1,000 MG; Start 07/23/16 at 09:00 Ferrous Sulfate (Ferrous Sulfate (Ec)) 325 mg TID PO Last administered on 14:06; Admin Dose 325 MG; Start 07/23/16 at 09:00 Diazepam (Valium) 5 mg Q4H PRN PO MUSCLE SPASMS Last administered on 07/25/16 09:05; Admin Dose 5 MG; Start 07/22/16 at 15:00 Phenol (Cepastat Lozenge) 1 lozenge PRN PRN [place] SORE THROAT; Start 07/22/16 at 15 :00 Diphenhydramine HCl (Benadryl) 50 mg Q6H PRN PO PRURITUS Last administered on 00:34; Admin Dose 50 MG; Start 07/22/16 at 15:00 Naloxone HCl 0.2 mg 0.2 mg Q2M PRN IV RR 8 BREATHS/MIN OR LESS; Start 07/22/16 at 15:00 Sodium Chloride 1,000 ml @ 75 mls/hr [id number] IV Last administered on 04:45; Admin Dose 75 MLS/HR; Start 08/01/16 at 11:00 Imipenem/ Cilastatin Sodium (Primaxin 500 Mg/ 100 ml (Pmx)) 100 ml @ 100 mls/ hr Q8 IVPB Last administered on 08/06/16 14:07; Admin Dose 100 MLS/HR; Start 08/01/16 at 22:00 Ibuprofen (Motrin) 600 mg Q6H PRN PO FEVER GREATER THAN 100.6 Last administered on 08/05/16 21:40; Admin Dose 600 MG; Start 08/03/16 at 11:00 IV Flush (NS 10 ml) 10 ml PRN PRN IV IV PROTOCOL Last administered on 21:45; Admin Dose 10 ML; Start 08/05/16 at 14:00 LIBBY GARZA NP Aug 06, 2016 14:10
[2016-08-06 19:51] VITALS: BP 150/70; PULSE 68; RESP 18
[2016-08-07 05:22] LABS: POTASSIUM 3.8 mmol/L (3.5-5.1)
[2016-08-07 05:24] LABS: CREATININE 0.68 mg/dl (0.44-1.00)
[2016-08-07 05:25] LABS: CALCIUM 8.6 mg/dl (8.4-10.2)
[2016-08-07] MEDS: IMIPENEM-CILAST 500MG IV (PMX) 100 ML IVPB SCH ×3 (05:43→22:26)
[2016-08-07 08:06] VITALS: BP 125/66; RESP 16
[2016-08-07] MEDS: DOCUSATE SODIUM 100 MG CAP PO SCH ×2 (08:38→20:36)
[2016-08-07] MEDS: ASCORBIC ACID 500 MG TAB PO SCH ×2 (08:38→20:36)
[2016-08-07] MEDS: SOD CHLORIDE 0.9% 1,000 ML IV SCH ×3 (08:38→22:26)
[2016-08-07] MEDS: FERROUS SULFATE (EC) 325 MG TAB PO SCH ×3 (08:38→20:36)
[2016-08-07] MEDS: HYDROCODONE/APAP (5/325) TAB PO PRN ×2 (10:36→20:37)
--- NOTE | 2016-08-07 10:39 | PN ---
Date/Time of Note Date/Time of Note DATE: 08/07/16 TIME: 10:39 Assessment/Plan VTE Prophylaxis VTE Prophylaxis Intervention: contraindicated VTE Contraindication Reason: bleeding Lines/Catheters IV Catheter Type (from Nrsg): PICC Line Central line still needed: Yes Urinary Cath still in place: No Assessment/Plan Chief Complaint/Hosp Course Assessment/Plan: 25 F with: 1. Cervical-thoracic epidural hematoma: s/p evacuation/laminectomy C4-T4 POD # 16 - MRI C spine showed: resolution of multilevel spinal canal stenosis and spinal cord impingement as noted on prior MRI. There is a dorsal subcutaneous peripheral enhancing fluid collection extending to the skin surface which likely represents a postoperative seroma. - f/u NSS rec's, monitor drain. 2. Extremity weakness/numbness, 2/2 above - improved - f/u Neuro rec's, continue PT 3. Anemia: likely 2/2 blood loss: H/H stable - monitor closely and transfuse as needed 4. Sepsis: + fevers, + blood cx 4/4 bottles for E coli. Again CT scam shows pyelonephritis and questionable L kidney abscess. consulted as well. Improving overall now on IV abx. - continue tylenol, Motrin, IVF's, abx, f/u ID and consult rec's - conservative tx for now with IV abx and pain meds Further recommendation based on clinical course. - possible d/c to assisted for rehab - [facility] vs just staying at [facility] and continuing inpt therapy, tx - based on insurance - will follow up with CM on this. Problems: Subjective 24 Hr Interval Summary Free Text/Dictation Less abd and flank pain. Exam/Review of Systems Vital Signs Vitals Vital Signs Date Time Temp Pulse Resp B/P Pulse Ox O2 Delivery O2 Flow Rate FiO2 08/07/16 08:06 98.0 70 16 125/66 98 08/06/16 19:51 Room Air Intake and Output 08/06/16 08/06/16 08/07/16 15:00 23:00 07:00 Intake Total 100 ml 1600 ml 1650 ml Output Total 1700 ml Balance 100 ml 1600 ml -50 ml Exam Gen Stefano: less distress, AAOx4 HEENT: NC/AT, PERRLA, EOMI NECK: with cervical collar THORAX: symmetrical, no obvious deformities CV: S1S2, RRR, no M/G/R Lungs: CTAB no W/C/R/R Abd: soft, NT/ND, +BS, no rebound, no guarding, neg HSM EXT: no edema, no ecchymosis, no clubbing, improving movement and strength Neuro: improving function - still with slight neuropathy, numbness Psych: good mentation, alert and oriented, good mood and affect Skin: C/D/I Results Result Diagram: 08/06/16 0444 08/07/16 0435 Results 24 hrs Laboratory Tests Test 08/07/16 04:35 Anion Gap 15 Blood Urea Nitrogen 10 Calcium Level 8.6 Carbon Dioxide Level 25 Chloride Level 107 Creatinine 0.68 Glucose Level 97 Potassium Level 3.8 Sodium Level 143 Medications Medications Current Medications Oxycodone/ Acetaminophen (Percocet (5/ 325)) 1 tab Q4H PRN PO PAIN LEVEL 4-6 Last administered on 08/01/16 18:40; Admin Dose 1 TAB; Start 07/18/16 at 11:30 Oxycodone/ Acetaminophen (Percocet (5/ 325)) 2 tab Q4H PRN PO PAIN LEVEL 7-10 Last administered on 07/24/16 21:47; Admin Dose 2 TAB; Start 07/18/16 at 11:30 Simethicone 160 mg 160 mg Q8H PRN PO DISTENSION/GAS/BLOATING Last administered on 07/19/16 20:04; Admin Dose 160 MG; Start 07/18/16 at 11:30 Oxytocin/Lactated Ringer's 500 ml @ 0 mls/hr ONCE PRN IV For Hemorrhage Management; Start 07/18/16 at 11:30 Methylergonovine Maleate (Methergine) 0.2 mg ONCE PRN IM VAGINAL BLEEDING; Start 07/18/16 at 11:30 Carboprost Tromethamine (Hemabate) 250 mcg ONCE PRN IM VAGINAL BLEEDING; Start 07/18/16 at 11:30 Misoprostol (Cytotec) 1,000 mcg ONCE PRN [place] VAGINAL BLEEDING; Start 07/18/16 at 11:30 Acetaminophen/ Hydrocodone Bitart ([place] (5/325)) 1 tab Q4H PRN PO PAIN LEVEL 1 -5 Last administered on 08/07/16 10:36; Admin Dose 1 TAB; Start 07/22/16 at 15: 00 Acetaminophen/ Hydrocodone Bitart ([place] (5/325)) 2 tab Q4H PRN PO PAIN LEVEL 6 -10 Last administered on 07/25/16 09:05; Admin Dose 2 TAB; Start 07/22/16 at 15: 00 Ondansetron HCl (Zofran Inj) 4 mg Q6H PRN IV NAUSEA AND/OR VOMITING; Start 07/22 at 15:00 Docusate Sodium (Colace) 100 mg BID PO Last administered on 08/07/16 08:38; Admin Dose 100 MG; Start 07/22/16 at 15:00 Acetaminophen (Tylenol Tab) 650 mg Q4H PRN PO TEMP GREATER THAN 101F OR JONES Last administered on 08/03/16 14:45; Admin Dose 650 MG; Start 07/22/16 at 15:00 Ascorbic Acid (Vitamin C) 1,000 mg BID PO Last administered on 08/07/16 08:38 ; Admin Dose 1,000 MG; Start 07/23/16 at 09:00 Ferrous Sulfate (Ferrous Sulfate (Ec)) 325 mg TID PO Last administered on 08:38; Admin Dose 325 MG; Start 07/23/16 at 09:00 Diazepam (Valium) 5 mg Q4H PRN PO MUSCLE SPASMS Last administered on 07/25/16 09:05; Admin Dose 5 MG; Start 07/22/16 at 15:00 Phenol (Cepastat Lozenge) 1 lozenge PRN PRN [place] SORE THROAT; Start 07/22/16 at 15 :00 Diphenhydramine HCl (Benadryl) 50 mg Q6H PRN PO PRURITUS Last administered on 00:34; Admin Dose 50 MG; Start 07/22/16 at 15:00 Naloxone HCl 0.2 mg 0.2 mg Q2M PRN IV RR 8 BREATHS/MIN OR LESS; Start 07/22/16 at 15:00 Sodium Chloride 1,000 ml @ 75 mls/hr [id number] IV Last administered on 08:38; Admin Dose 75 MLS/HR; Start 08/01/16 at 11:00 Imipenem/ Cilastatin Sodium (Primaxin 500 Mg/ 100 ml (Pmx)) 100 ml @ 100 mls/ hr Q8 IVPB Last administered on 08/07/16 05:43; Admin Dose 100 MLS/HR; Start 08/01/16 at 22:00 Ibuprofen (Motrin) 600 mg Q6H PRN PO FEVER GREATER THAN 100.6 Last administered on 08/05/16 21:40; Admin Dose 600 MG; Start 08/03/16 at 11:00 IV Flush (NS 10 ml) 10 ml PRN PRN IV IV PROTOCOL Last administered on 21:45; Admin Dose 10 ML; Start 08/05/16 at 14:00 THALIA CARRASQUILLO Aug 07, 2016 10:39
--- NOTE | 2016-08-07 14:00 | PN ---
DATE: 08/07/2016 SUBJECTIVE: Bilateral flank pain, urinary tract infection, and bacteremia. Patient states that she is feeling a little better, and her pain is less. OBJECTIVE: VITAL SIGNS: Temperature is 98.0, pulse is 70, respirations 16, blood pressure 125/66. ABDOMEN: Soft. There is mild flank tenderness. She denies any dysuria. LABORATORY DATA: CBC shows a white count of 12.0, hemoglobin 9.7, hematocrit 27.9. BUN is 10, crea tinine 0.68. Electrolytes are normal. Urine culture: no growth after 48 hours. However, the orig inal urine culture did show pseudomonas, and her blood cultures were positive for E. coli. PLAN: To continue the IV antibiotics. The patient is on Primaxin. Dictated By: MARC SCOTT/BEE Conf#: [id number] DID#: [id number]
--- NOTE | 2016-08-07 19:19 | CONS ---
Date/Time of Note Date/Time of Note DATE: 08/07/16 TIME: :17 Assessment/Plan Assessment/Plan Chief Complaint/Hosp Course SUBJECTIVE: No events overnight. The patient is alert, feels better, no fevers MICROBIOLOGY: Blood culture on admission grew E. coli. Urine culture on admission grew Pseudomonas aeruginosa. ANTIMICROBIALS: Imipenem. PHYSICAL EXAMINATION: GENERAL: A well-developed young woman who is alert, in no distress. HEENT: Head atraumatic, normocephalic. Sclerae anicteric. Buccal mucosa pink. NECK: Supple, trachea midline. CHEST: Rise symmetrical. Breath sounds clear. HEART: S1, S2. ABDOMEN: Soft. Bowel tones present. EXTREMITIES: Without cyanosis. ASSESSMENT: 1. S/p persistent fevers with persistent bacteremia, likely secondary to #2. 2. Acute pyelonephritis, questionable kidney abscess, patient is being followed by Dr. Armstrong. 3. Pseudomonas aeruginosa urinary tract infection on admission. 4. Postop day #15 status post C4-T4 laminectomy for epidural hematoma evacuation, neurosurgeon on case. MRI consistent with postoperative seroma. PLAN: Continues to improve. Repeat bld cx negative. Continue abx. rec-s, PT DW staff Problems: Consultation Date/Type/Reason Admit Date/Time Jul 17, 2016 at 22:30 Type of Consultation: ID Referring Provider: NAVYA JACOB MD Exam/Review of Systems Vital Signs Vitals Vital Signs Date Time Temp Pulse Resp B/P Pulse Ox O2 Delivery O2 Flow Rate FiO2 08/07/16 08:06 98.0 70 16 125/66 98 08/06/16 19:51 Room Air Intake and Output 08/06/16 08/06/16 08/07/16 15:00 23:00 07:00 Intake Total 100 ml 1600 ml 1650 ml Output Total 1700 ml Balance 100 ml 1600 ml -50 ml Results Result Diagram: 08/06/16 0444 08/07/16 0435 Results 24 hrs Laboratory Tests Test 08/07/16 04:35 Anion Gap 15 Blood Urea Nitrogen 10 Calcium Level 8.6 Carbon Dioxide Level 25 Chloride Level 107 Creatinine 0.68 Glucose Level 97 Potassium Level 3.8 Sodium Level 143 Medications Medications Current Medications Oxycodone/ Acetaminophen (Percocet (5/ 325)) 1 tab Q4H PRN PO PAIN LEVEL 4-6 Last administered on 08/01/16 18:40; Admin Dose 1 TAB; Start 07/18/16 at 11:30 Oxycodone/ Acetaminophen (Percocet (5/ 325)) 2 tab Q4H PRN PO PAIN LEVEL 7-10 Last administered on 07/24/16 21:47; Admin Dose 2 TAB; Start 07/18/16 at 11:30 Simethicone 160 mg 160 mg Q8H PRN PO DISTENSION/GAS/BLOATING Last administered on 07/19/16 20:04; Admin Dose 160 MG; Start 07/18/16 at 11:30 Oxytocin/Lactated Ringer's 500 ml @ 0 mls/hr ONCE PRN IV For Hemorrhage Management; Start 07/18/16 at 11:30 Methylergonovine Maleate (Methergine) 0.2 mg ONCE PRN IM VAGINAL BLEEDING; Start 07/18/16 at 11:30 Carboprost Tromethamine (Hemabate) 250 mcg ONCE PRN IM VAGINAL BLEEDING; Start 07/18/16 at 11:30 Misoprostol (Cytotec) 1,000 mcg ONCE PRN [place] VAGINAL BLEEDING; Start 07/18/16 at 11:30 Acetaminophen/ Hydrocodone Bitart ([place] (5/325)) 1 tab Q4H PRN PO PAIN LEVEL 1 -5 Last administered on 08/07/16 10:36; Admin Dose 1 TAB; Start 07/22/16 at 15: 00 Acetaminophen/ Hydrocodone Bitart ([place] (5/325)) 2 tab Q4H PRN PO PAIN LEVEL 6 -10 Last administered on 07/25/16 09:05; Admin Dose 2 TAB; Start 07/22/16 at 15: 00 Ondansetron HCl (Zofran Inj) 4 mg Q6H PRN IV NAUSEA AND/OR VOMITING; Start 07/22 at 15:00 Docusate Sodium (Colace) 100 mg BID PO Last administered on 08/07/16 08:38; Admin Dose 100 MG; Start 07/22/16 at 15:00 Acetaminophen (Tylenol Tab) 650 mg Q4H PRN PO TEMP GREATER THAN 101F OR JONES Last administered on 08/03/16 14:45; Admin Dose 650 MG; Start 07/22/16 at 15:00 Ascorbic Acid (Vitamin C) 1,000 mg BID PO Last administered on 08/07/16 08:38 ; Admin Dose 1,000 MG; Start 07/23/16 at 09:00 Ferrous Sulfate (Ferrous Sulfate (Ec)) 325 mg TID PO Last administered on 13:45; Admin Dose 325 MG; Start 07/23/16 at 09:00 Diazepam (Valium) 5 mg Q4H PRN PO MUSCLE SPASMS Last administered on 07/25/16 09:05; Admin Dose 5 MG; Start 07/22/16 at 15:00 Phenol (Cepastat Lozenge) 1 lozenge PRN PRN MT SORE THROAT; Start 07/22/16 at 15 :00 Diphenhydramine HCl (Benadryl) 50 mg Q6H PRN PO PRURITUS Last administered on 00:34; Admin Dose 50 MG; Start 07/22/16 at 15:00 Naloxone HCl 0.2 mg 0.2 mg Q2M PRN IV RR 8 BREATHS/MIN OR LESS; Start 07/22/16 at 15:00 Sodium Chloride 1,000 ml @ 75 mls/hr [id number] IV Last administered on 08:38; Admin Dose 75 MLS/HR; Start 08/01/16 at 11:00 Imipenem/ Cilastatin Sodium (Primaxin 500 Mg/ 100 ml (Pmx)) 100 ml @ 100 mls/ hr Q8 IVPB Last administered on 08/07/16 14:47; Admin Dose 100 MLS/HR; Start 08/01/16 at 22:00 Ibuprofen (Motrin) 600 mg Q6H PRN PO FEVER GREATER THAN 100.6 Last administered on 08/05/16 21:40; Admin Dose 600 MG; Start 08/03/16 at 11:00 IV Flush (NS 10 ml) 10 ml PRN PRN IV IV PROTOCOL Last administered on 21:45; Admin Dose 10 ML; Start 08/05/16 at 14:00 LIBBY GARZA NP Aug 07, 2016 19:19
[2016-08-07 21:30] VITALS: BP 165/91
[2016-08-08 00:44] VITALS: BP 130/67
[2016-08-08 05:45] LABS: POTASSIUM 4.3 mmol/L (3.5-5.1)
[2016-08-08 05:47] LABS: CREATININE 0.59 mg/dl (0.44-1.00)
[2016-08-08 05:48] LABS: CALCIUM 8.5 mg/dl (8.4-10.2)
[2016-08-08] MEDS: IMIPENEM-CILAST 500MG IV (PMX) 100 ML IVPB SCH ×3 (06:23→21:48)
[2016-08-08 06:34] LABS: BASOPHIL # 0.1 10^3/ul (0.0-0.1); BASOPHILS % 0.7 % (0.0-2.0); CONDITION 1; EOSINOPHILS # 0.4 10^3/ul (0.0-0.5); EOSINOPHILS % 3.2 % (0.0-7.0); HEMATOCRIT 28.8 % (37.0-47.0); HEMOGLOBIN 9.9 g/dl (12.0-16.0); LYMPHOCYTES # 2.7 10^3/ul (0.8-2.9); LYMPHOCYTES % 24.6 % (15.0-51.0); MEAN CORPUSCULAR HEMOGLOBIN 31.4 pg (29.0-33.0); MEAN CORPUSCULAR HGB CONC 34.4 g/dl (32.0-37.0); MEAN CORPUSCULAR VOLUME 91.3 fl (82.0-101.0); MEAN PLATELET VOLUME 7.7 fl (7.4-10.4); MONOCYTES % 8.5 % (0.0-11.0); PLATELET COUNT 530 10^3/UL (140-440); RED BLOOD COUNT 3.16 10^6/ul (4.20-5.40); RED CELL DISTRIBUTION WIDTH 13.9 % (11.5-14.5); UNCORRECTED WBC 11.2 10^3/ul (4.8-10.8); WHITE BLOOD COUNT 11.2 10^3/ul (4.8-10.8)
[2016-08-08] MEDS: DOCUSATE SODIUM 100 MG CAP PO SCH ×2 (08:50→21:48)
[2016-08-08] MEDS: ASCORBIC ACID 500 MG TAB PO SCH ×2 (08:50→21:48)
[2016-08-08] MEDS: FERROUS SULFATE (EC) 325 MG TAB PO SCH ×3 (08:50→21:48)
[2016-08-08] MEDS: HYDROCODONE/APAP (5/325) TAB PO PRN ×2 (08:50→13:36)
[2016-08-08 09:23] VITALS: BP 152/88; RESP 18
[2016-08-08 10:00] VITALS: BP 139/76; PULSE 72
--- NOTE | 2016-08-08 10:50 | PN ---
DATE: 08/08/2016 SUBJECTIVE: Bilateral pyelonephritis and flank pain. The patient states that she is feeling better and she has no pain now. OBJECTIVE: VITAL SIGNS: Temperature is 98, respirations 16, pulse 68, blood pressure 130/67. ABDOMEN: Soft and there is no flank tenderness. LABORATORY DATA: Her CBC shows a white count of 11.2, hemoglobin 9.9, hematocrit 28.8. BUN 12, cre atinine 0.59. IMPRESSION: Pyelonephritis and no evidence of any drainable collection of fluid in the kidney. PLAN: The patient is on Primaxin. The plan is to continue that as per infectious disease [employer] consultant s. Dictated By: MARC SOARES MD BB/BEE Conf#: [id number] DID#: [id number]
--- NOTE | 2016-08-08 14:28 | CONS ---
Date/Time of Note Date/Time of Note DATE: 08/08/16 TIME: 14:27 Assessment/Plan Assessment/Plan Chief Complaint/Hosp Course SUBJECTIVE: No events overnight. The patient is alert, feels better, no fevers MICROBIOLOGY: Blood culture on admission grew E. coli. Urine culture on admission grew Pseudomonas aeruginosa. ANTIMICROBIALS: Imipenem. PHYSICAL EXAMINATION: GENERAL: A well-developed young woman who is alert, in no distress. HEENT: Head atraumatic, normocephalic. Sclerae anicteric. Buccal mucosa pink. NECK: Supple, trachea midline. CHEST: Rise symmetrical. Breath sounds clear. HEART: S1, S2. ABDOMEN: Soft. Bowel tones present. EXTREMITIES: Without cyanosis. ASSESSMENT: 1. S/p persistent fevers with persistent bacteremia, likely secondary to #2. 2. Acute pyelonephritis, questionable kidney abscess, patient is being followed by Dr. Armstrong. 3. Pseudomonas aeruginosa urinary tract infection on admission. 4. Postop day #16 status post C4-T4 laminectomy for epidural hematoma evacuation, neurosurgeon on case. MRI consistent with postoperative seroma. PLAN: Continues to improve. Repeat bld cx negative. Continue abx. rec-s, PT. Anticipate dc on PO Levaquin for 2-3 more weeks==> pt is not breast feeding anymore DW staff Problems: Consultation Date/Type/Reason Admit Date/Time Jul 17, 2016 at 22:30 Type of Consultation: ID Referring Provider: NAVYA JACOB MD Exam/Review of Systems Vital Signs Vitals Vital Signs Date Time Temp Pulse Resp B/P Pulse Ox O2 Delivery O2 Flow Rate FiO2 08/08/16 09:23 98.6 76 18 152/88 0 08/06/16 19:51 Room Air Intake and Output 08/07/16 08/07/16 08/08/16 15:00 23:00 07:00 Intake Total 1625 ml 1425 ml Balance 1625 ml 1425 ml Results Result Diagram: 08/08/16 0451 08/08/16 0451 Results 24 hrs Laboratory Tests Test 08/08/16 04:51 Anion Gap 14 Basophils # 0.1 Basophils % 0.7 Blood Urea Nitrogen 12 Calcium Level 8.5 Carbon Dioxide Level 24 Chloride Level 108 Creatinine 0.59 Eosinophils # 0.4 Eosinophils % 3.2 Glucose Level 86 Hematocrit 28.8 L Hemoglobin 9.9 L Lymphocytes # 2.7 Lymphocytes % 24.6 Mean Corpuscular Hemoglobin 31.4 Mean Corpuscular Hemoglobin Concent 34.4 Mean Corpuscular Volume 91.3 Mean Platelet Volume 7.7 Monocytes # 1.0 H Monocytes % 8.5 Neutrophils # 7.0 Neutrophils % 63.0 Nucleated Red Blood Cells # 0.0 Nucleated Red Blood Cells % 0.0 Platelet Count 530 #H Potassium Level 4.3 Red Blood Count 3.16 L Red Cell Distribution Width 13.9 Sodium Level 142 White Blood Count 11.2 H Medications Medications Current Medications Oxycodone/ Acetaminophen (Percocet (5/ 325)) 1 tab Q4H PRN PO PAIN LEVEL 4-6 Last administered on 08/01/16 18:40; Admin Dose 1 TAB; Start 07/18/16 at 11:30 Oxycodone/ Acetaminophen (Percocet (5/ 325)) 2 tab Q4H PRN PO PAIN LEVEL 7-10 Last administered on 07/24/16 21:47; Admin Dose 2 TAB; Start 07/18/16 at 11:30 Simethicone 160 mg 160 mg Q8H PRN PO DISTENSION/GAS/BLOATING Last administered on 07/19/16 20:04; Admin Dose 160 MG; Start 07/18/16 at 11:30 Oxytocin/Lactated Ringer's 500 ml @ 0 mls/hr ONCE PRN IV For Hemorrhage Management; Start 07/18/16 at 11:30 Methylergonovine Maleate (Methergine) 0.2 mg ONCE PRN IM VAGINAL BLEEDING; Start 07/18/16 at 11:30 Carboprost Tromethamine (Hemabate) 250 mcg ONCE PRN IM VAGINAL BLEEDING; Start 07/18/16 at 11:30 Misoprostol (Cytotec) 1,000 mcg ONCE PRN [place] VAGINAL BLEEDING; Start 07/18/16 at 11:30 Acetaminophen/ Hydrocodone Bitart ([place] (5/325)) 1 tab Q4H PRN PO PAIN LEVEL 1 -5 Last administered on 08/08/16 13:36; Admin Dose 1 TAB; Start 07/22/16 at 15: 00 Acetaminophen/ Hydrocodone Bitart ([place] (5/325)) 2 tab Q4H PRN PO PAIN LEVEL 6 -10 Last administered on 07/25/16 09:05; Admin Dose 2 TAB; Start 07/22/16 at 15: 00 Ondansetron HCl (Zofran Inj) 4 mg Q6H PRN IV NAUSEA AND/OR VOMITING; Start 07/22 at 15:00 Docusate Sodium (Colace) 100 mg BID PO Last administered on 08/08/16 08:50; Admin Dose 100 MG; Start 07/22/16 at 15:00 Acetaminophen (Tylenol Tab) 650 mg Q4H PRN PO TEMP GREATER THAN 101F OR JONES Last administered on 08/03/16 14:45; Admin Dose 650 MG; Start 07/22/16 at 15:00 Ascorbic Acid (Vitamin C) 1,000 mg BID PO Last administered on 08/08/16 08:50 ; Admin Dose 1,000 MG; Start 07/23/16 at 09:00 Ferrous Sulfate (Ferrous Sulfate (Ec)) 325 mg TID PO Last administered on 13:35; Admin Dose 325 MG; Start 07/23/16 at 09:00 Diazepam (Valium) 5 mg Q4H PRN PO MUSCLE SPASMS Last administered on 07/25/16 09:05; Admin Dose 5 MG; Start 07/22/16 at 15:00 Phenol (Cepastat Lozenge) 1 lozenge PRN PRN [place] SORE THROAT; Start 07/22/16 at 15 :00 Diphenhydramine HCl (Benadryl) 50 mg Q6H PRN PO PRURITUS Last administered on 00:34; Admin Dose 50 MG; Start 07/22/16 at 15:00 Naloxone HCl 0.2 mg 0.2 mg Q2M PRN IV RR 8 BREATHS/MIN OR LESS; Start 07/22/16 at 15:00 Sodium Chloride 1,000 ml @ 75 mls/hr [id number] IV Last administered on 22:26; Admin Dose 75 MLS/HR; Start 08/01/16 at 11:00 Imipenem/ Cilastatin Sodium (Primaxin 500 Mg/ 100 ml (Pmx)) 100 ml @ 100 mls/ hr Q8 IVPB Last administered on 08/08/16 13:36; Admin Dose 100 MLS/HR; Start 08/01/16 at 22:00 Ibuprofen (Motrin) 600 mg Q6H PRN PO FEVER GREATER THAN 100.6 Last administered on 08/05/16 21:40; Admin Dose 600 MG; Start 08/03/16 at 11:00 IV Flush (NS 10 ml) 10 ml PRN PRN IV IV PROTOCOL Last administered on 21:45; Admin Dose 10 ML; Start 08/05/16 at 14:00 LIBBY GARZA NP Aug 08, 2016 14:28
[2016-08-08] MEDS: SOD CHLORIDE 0.9% 1,000 ML IV SCH (14:47)
[2016-08-08] MEDS: HYDROCHLOROTHIAZIDE 25 MG TAB PO SCH (19:58)
[2016-08-08 19:59] VITALS: BP 170/95; PULSE 57
[2016-08-08 20:06] VITALS: BP 177/93; RESP 18
[2016-08-09 00:13] VITALS: BP 130/79
[2016-08-09] MEDS: SOD CHLORIDE 0.9% 1,000 ML IV SCH (03:33)
--- NOTE | 2016-08-09 04:36 | DS ---
DATE OF ADMISSION: 07/17/2016 DATE OF DISCHARGE: 08/09/2016 PRESENTING COMPLAINT: A 25-year-old 1, para 0 female with an estimated delivery date of 01/2017 who presented with intrauterine at 38 weeks and 4 days gestational age with numbne ss in her legs and arms for the past week with decreased movement. The patient was evaluated by the medical laboratory technical officer [facility] and admitted for observation. This decision was made to proceed with a section due to patient's symptomatology as well as the presence of the ____ baby and the fa ct that the patient was term. The patient underwent section on 07/18/2016. Postoperativel y, she was reviewed by neurology. Neurology diagnosed to have a possible cervical myelopathy to rul e out multiple sclerosis. He recommended an MRI of her brain as well as a C and T-spine with IV con trast. The MRI came back showing with the followin. Epidural hematoma extending from the posterior cervical epidural space throughout the posterior epidural space within the thoracic spine with maximum thickness in the thoracic spine of 3 to 4 mm. 2. 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 No abnormal cord signal present. The MRI of her cervical spine showed 1. Acute posterior epidural hematoma extending from C4 through inferiormost axial image evaluated a t T2 level, measuring approximate dimensions of 8.3 cm superiorly inferiorly by maximum of 8 mm ante rior posteriorly. 2. Cord compression and severe canal stenosis at C4-C5 through T2 levels without abnormal cord sign al. An MRI of her brain was also done, and this showed no acute intracranial hemorrhage, infarct, or acu te intracranial pathology. Normal noncontrast brain MRI without evidence of abnormal enhancement an d a left maxillary sinus retention cyst. Based on these findings, an emergent neurosurgical consult was obtained. The patient was seen by Dr. Paul Avila. Dr. Avila reviewed the patient and reviewed the imaging with radiology as well as, per his notes, other neurosurgeons and considered the presence of a possible spinal AVM to be the cause of her symp toms. Based on this, he thought the patient would benefit from a spinal angiogram to further evalua te; however, he determined that the necessity for immediate decompression outweighed the need for di agnosis, and the patient was taken in for cervical laminectomy from C4 through C7 for evacuation of epidural hematoma as well as thoracic laminectomy from T1 through T4 for evacuation of epidural amy raghav. This procedure was done 07/22/2016. Ever since, the patient has been monitored in house with postoperative care as well as physical therapy. She has done quite well and as of today, on my jose roberto luation, she feels well and she is able to ambulate with the use of a front-wheel walker with assist ance of 1 person. ACTIVITY: The patient reports that her sister resides with her and will assist her with care giving when she is discharged home. COMPLICATIONS: Unfortunately, her postoperative course was complicated by a few things. 1. Initial pseudomonas UTI. 2. Acute Escherichia coli pyelonephritis that was complicated by Escherichia coli bacteremia. 3. Chronic normocytic anemia. The patient has been aggressively treated with intervention of infectious disease, Dr. Rei blanc, as well as urology, Dr. Kenji Armstrong, and she has done well. Per ID, once the patient has been cleared from all surgical specialties, she may be discharged home on p.o. Levaquin for 2 to 3 more weeks. The patient tells me she is anxious for discharge to go home to her baby. She continues to have numbness in her upper and lower extremities, but as mentioned earlier, she is more comfortable ambulating with a front-wheeled walker at this time. Her vital signs remained stable, though her b lood pressures have been slightly elevated in this patient that has no history of high blood pressur e. She has been controlled with p.r.n. meds but will be started on a low dose of antihypertensives at this time prior to discharge. She will remain observed in house, and if cleared tomorrow by urol ivanay as well as neurosurgery, the patient to be discharged for continued home physical therapy and solorzano pportive care. Please note that we attempted to try to get the patient into an acute rehabilitation unit; however, we were unsuccessful, and so she continued in-house rehabilitation until such a time she was stable to go home. FINAL DIAGNOSES: 1. 1, para 0, status post successful delivery of a 38 week and 4 days gestation via ginny an section. 2. Acute cervical as well as thoracic epidural hematomas, thought to be secondary to probable spina l AVM status post emergent surgical decompression done 07/22/2016. 3. Pseudomonas urinary tract infection, resolved. 4. Acute E. coli pyelonephritis with E. coli bacteremia, on treatment. 5. Newly diagnosed high blood pressure. 6. Chronic normocytic anemia on iron therapy. DISPOSITION: To home with home health therapy. ACTIVITY: Will be as tolerated. DISCHARGE MEDICATIONS: Will include 1. Oral Levaquin at a dose of 500 mg daily for 3 weeks. 2. Colace 100 mg p.o. b.i.d. 3. Percocet 1 tab p.o. q. 4 p.r.n. pain. 4. Ferrous sulfate 325 mg daily. 5. Folic acid 1 mg daily. 6. vitamins 1 tablet daily. 7. Hydrochlorothiazide 25 mg p.o. daily. Any amendments and additions will be added to an addendum when the patient is indeed discharged. Overall time spent on coordination so far today has been more than half an hour. The patient has be en counseled about the probability of discharge tomorrow. She is in agreement with the plan. Dictated By: KADEN ARRIOLA MD, BA/BEE Conf#: [id number] DID#: [id number]
[2016-08-09] MEDS: IMIPENEM-CILAST 500MG IV (PMX) 100 ML IVPB SCH ×2 (05:40→13:57)
[2016-08-09 07:18] VITALS: BP 127/77; RESP 15
[2016-08-09] MEDS: ASCORBIC ACID 500 MG TAB PO SCH (08:52)
[2016-08-09] MEDS: FERROUS SULFATE (EC) 325 MG TAB PO SCH ×2 (08:52→13:57)
[2016-08-09] MEDS: HYDROCHLOROTHIAZIDE 25 MG TAB PO SCH (08:53)
[2016-08-09] MEDS: DOCUSATE SODIUM 100 MG CAP PO SCH (08:53)
[2016-08-09 09:05] LABS: BASOPHIL # 0.1 10^3/ul (0.0-0.1); BASOPHILS % 0.5 % (0.0-2.0); EOSINOPHILS # 0.3 10^3/ul (0.0-0.5); EOSINOPHILS % 2.2 % (0.0-7.0); HEMATOCRIT 30.5 % (37.0-47.0); HEMOGLOBIN 10.5 g/dl (12.0-16.0); LYMPHOCYTES % 17.3 % (15.0-51.0); MEAN CORPUSCULAR HGB CONC 34.6 g/dl (32.0-37.0); MEAN CORPUSCULAR VOLUME 89.7 fl (82.0-101.0); MEAN PLATELET VOLUME 7.3 fl (7.4-10.4); MONOCYTE # 0.7 10^3/ul (0.3-0.9); MONOCYTES % 6.5 % (0.0-11.0); NEUTROPHIL # 8.5 10^3/ul (1.6-7.5); NEUTROPHILS % 73.5 % (39.0-77.0); PLATELET COUNT 632 10^3/UL (140-440); RED CELL DISTRIBUTION WIDTH 13.8 % (11.5-14.5); UNCORRECTED WBC 11.6 10^3/ul (4.8-10.8); WHITE BLOOD COUNT 11.6 10^3/ul (4.8-10.8)
[2016-08-09 09:17] LABS: CONDITION 1
[2016-08-09] MEDS ORDERED: LEVO500T10 PO ×2 (12:22→12:25)
[2016-08-09] MEDS ORDERED: DOCU-216 PO (12:22)
[2016-08-09] MEDS ORDERED: LACT1CAP43 PO ×2 (12:22→12:25)
[2016-08-09] MEDS ORDERED: ACET325T33 PO (12:22)
[2016-08-09] MEDS ORDERED: FER325 PO (12:22)
[2016-08-09] MEDS ORDERED: HYD25 PO (12:22)
--- NOTE | 2016-08-09 12:27 | PN ---
DATE: 08/09/2016 SUBJECTIVE: No events overnight. The patient is alert, complaining of right shoulder pain and neck pain. She is in no distress, no fevers. LABORATORY DATA: WBC today 11.6, platelets 632, no shift, no bands. BUN 12, creatinine 0.59. INDWELLINGS: The patient had PICC line placed on 08/05/2016. PHYSICAL EXAMINATION: GENERAL: This is well-developed, young woman, who is alert, in no distress. HEENT: Head atraumatic, normocephalic. Sclerae anicteric. Buccal mucosa pink. NECK: Supple, trachea midline. CHEST: Rise symmetrical. Breath sounds clear. HEART: S1, S2. ABDOMEN: Soft. Bowel sounds present. ASSESSMENT: 1. Resolving sepsis. 2. Resolving pyelonephritis. 3. Status post Pseudomonas urinary tract infection. 4. Status post bacteremia. 5. Status post C4 to T4 laminectomy for epidural hematoma evacuation, postop day #17. PLAN: The patient remains stable, continuing to improve. Anticipate changing antibiotics to p.o. Levaquin and discharge her on current regimen for 2 to 3 more weeks, given the possibility of kidney abscess that was found on CAT scan on admission. Dictated By: LIBBY GARZA [employer] Conf#: [id number] DID#: [id number]
--- NOTE | 2016-08-09 13:05 | DS ---
Date/Time of Note Date/Time of Note DATE: 08/09/16 TIME: 13:03 Discharge Summary Admission/Discharge Info Admit Date/Time Jul 17, 2016 at 22:30 Discharge Date/Time 08/09/15 Final Diagnosis 1. 1, para 0, status post successful delivery of a 38 week and 4 days gestation via section. 2. Acute cervical as well as thoracic epidural hematomas, thought to be secondary to probable spinal AVM status post emergent surgical decompression done 07/22/2016. 3. Pseudomonas urinary tract infection, resolved. 4. Acute E. coli pyelonephritis with E. coli bacteremia, on treatment. 5. Newly diagnosed high blood pressure. 6. Chronic normocytic anemia on iron therapy. . Patient Condition: Stable Hospital Course See dictated d/c summary from 08/08/16 . Home Meds Active Scripts Lactobacillus Acidophilus (ACIDOPHILUS PROBIOTIC) 1 Mg Tablet, 1 MG PO TID for 21 Days, TAB Prov:KADEN ARRIOLA. 08/09/16 Levofloxacin* (Levofloxacin*) 500 Mg Tablet, 500 MG PO DAILY for 21 Days, #21 TAB Prov:KADEN ARRIOLA. 08/09/16 Hydrochlorothiazide* (Hydrochlorothiazide*) 25 Mg Tab, 25 MG PO DAILY for 30 Days, TAB Prov:KADEN ARRIOLA. 08/09/16 Ferrous Sulfate* (Ferrous Sulfate*) 325 Mg Tabec, 325 MG PO TID for 30 Days, TAB Prov:KADEN ARRIOLA. 08/09/16 Docusate Sodium (Dok) 100 Mg Capsule, 100 MG PO BID for 30 Days, CAP Prov:KADEN ARRIOLA 08/09/16 Acetaminophen* (Tylenol*) 325 Mg Tablet, 650 MG PO Q4H Y for TEMP GREATER THAN 101F OR JONES, #30 TAB Prov:KADEN ARRIOLA Chioma 08/09/16 Docusate Sodium* (Colace*) 100 Mg Capsule, 100 MG PO BID, #60 CAP Prov:BRET LLAMAS MD 07/26/16 [Oxycodone/Acetamin (5/325)] 1 TAB TAB No Conflict Check, 1 TAB PO Q4H Y for PAIN LEVEL 4-6 for 10 Days, #40 Prov:BRET LLAMAS MD 07/26/16 Reported Medications Folic Acid* (Folic Acid*) 1 Mg Tablet, 1 MG PO DAILY, TAB 07/07/16 Multivit/Min/Fol Ac/Iron/Pren* ( S*) 1 Tab Tab, 1 TAB PO DAILY, TAB 07/07/16 Discontinued Reported Medications Ferrous Sulfate* (Ferrous Sulfate*) 325 Mg Tabec, 325 MG PO DAILY, TAB 07/07/16 Follow-up Plan Name, Degree: Paul Avila MD Specialty: Neurosurgery Comments: Office Address: [address] [place] [address] Office Office [employer] Supervisor: Nila Renee. Pending Labs Laboratory Tests Test 08/09/16 08:18 Basophils # 0.110^3/ul (0.0-0.1) Basophils % 0.5% (0.0-2.0) Blood Morphology Comment Eosinophils # 0.310^3/ul (0.0-0.5) Eosinophils % 2.2% (0.0-7.0) Hematocrit 30.5% (37.0-47.0) Hemoglobin 10.5g/dl (12.0-16.0) Lymphocytes # 2.010^3/ul (0.8-2.9) Lymphocytes % 17.3% (15.0-51.0) Mean Corpuscular Hemoglobin 31.0pg (29.0-33.0) Mean Corpuscular Hemoglobin Concent 34.6g/dl (32.0-37.0) Mean Corpuscular Volume 89.7fl (82.0-101.0) Mean Platelet Volume 7.3fl (7.4-10.4) Monocytes # 0.710^3/ul (0.3-0.9) Monocytes % 6.5% (0.0-11.0) Neutrophils # 8.510^3/ul (1.6-7.5) Neutrophils % 73.5% (39.0-77.0) Nucleated Red Blood Cells # 0.010^3/ul (0.0-0.0) Nucleated Red Blood Cells % 0.0/100WBC (0.0-0.0) Platelet Count 64495^3/UL (140-440) Red Blood Count 3.4010^6/ul (4.20-5.40) Red Cell Distribution Width 13.8% (11.5-14.5) White Blood Count 11.610^3/ul (4.8-10.8) KADEN ARRIOLA Aug 09, 2016 13:05
--- NOTE | 2016-08-09 13:09 | PN ---
Date/Time of Note Date/Time of Note DATE: 08/09/16 TIME: 13:06 Assessment/Plan VTE Prophylaxis VTE Prophylaxis Intervention: ambulation, SCD's Lines/Catheters IV Catheter Type (from Nrsg): PICC Line Central line still needed: No Urinary Cath still in place: No Assessment/Plan Chief Complaint/Hosp Course Problems: Assessment/Plan 1. 1, para 0, status post successful delivery of a 38 week and 4 days gestation via section. 2. Acute cervical as well as thoracic epidural hematomas, thought to be secondary to probable spinal AVM status post emergent surgical decompression done 07/22/2016. 3. Pseudomonas urinary tract infection, resolved. 4. Acute E. coli pyelonephritis with E. coli bacteremia, on treatment. 5. Newly diagnosed high blood pressure. 6. Chronic normocytic anemia on iron therapy. Dispo: Patient remains stable for discharge Case mgt to arrange for HH for PT / OT and nursing F/u plan with dr Avila per him D/c instructions given to patient / prescriptions issued. Subjective 24 Hr Interval Summary Free Text/Dictation remains well only has intermittent mild discomfort at surgery site Exam/Review of Systems Vital Signs Vitals Vital Signs Date Time Temp Pulse Resp B/P Pulse Ox O2 Delivery O2 Flow Rate FiO2 08/09/16 07:18 98.0 74 15 127/77 98 08/08/16 10:00 Room Air Intake and Output 08/08/16 08/08/16 08/09/16 15:00 23:00 07:00 Intake Total 1865 ml 1425 ml Balance 1865 ml 1425 ml Exam Gen Stefano: less distress, AAOx4 HEENT: NC/AT, PERRLA, EOMI NECK: with cervical collar THORAX: symmetrical, no obvious deformities CV: S1S2, RRR, no M/G/R Lungs: CTAB no W/C/R/R Abd: soft, NT/ND, +BS, no rebound, no guarding, neg HSM EXT: no edema, no ecchymosis, no clubbing, improving movement and strength Neuro: improving function - still with slight neuropathy, numbness Psych: good mentation, alert and oriented, good mood and affect Skin: C/D/I Results Result Diagram: 08/09/16 0818 08/08/16 0451 Results 24 hrs Laboratory Tests Test 08/09/16 08:18 Basophils # 0.1 Basophils % 0.5 Blood Morphology Comment Eosinophils # 0.3 Eosinophils % 2.2 Hematocrit 30.5 L Hemoglobin 10.5 L Lymphocytes # 2.0 Lymphocytes % 17.3 Mean Corpuscular Hemoglobin 31.0 Mean Corpuscular Hemoglobin Concent 34.6 Mean Corpuscular Volume 89.7 Mean Platelet Volume 7.3 L Monocytes # 0.7 Monocytes % 6.5 Neutrophils # 8.5 H Neutrophils % 73.5 Nucleated Red Blood Cells # 0.0 Nucleated Red Blood Cells % 0.0 Platelet Count 632 H Red Blood Count 3.40 L Red Cell Distribution Width 13.8 White Blood Count 11.6 H Medications Medications Current Medications Oxycodone/ Acetaminophen (Percocet (5/ 325)) 1 tab Q4H PRN PO PAIN LEVEL 4-6 Last administered on 08/01/16 18:40; Admin Dose 1 TAB; Start 07/18/16 at 11:30 Oxycodone/ Acetaminophen (Percocet (5/ 325)) 2 tab Q4H PRN PO PAIN LEVEL 7-10 Last administered on 07/24/16 21:47; Admin Dose 2 TAB; Start 07/18/16 at 11:30 Simethicone 160 mg 160 mg Q8H PRN PO DISTENSION/GAS/BLOATING Last administered on 07/19/16 20:04; Admin Dose 160 MG; Start 07/18/16 at 11:30 Oxytocin/Lactated Ringer's 500 ml @ 0 mls/hr ONCE PRN IV For Hemorrhage Management; Start 07/18/16 at 11:30 Methylergonovine Maleate (Methergine) 0.2 mg ONCE PRN IM VAGINAL BLEEDING; Start 07/18/16 at 11:30 Carboprost Tromethamine (Hemabate) 250 mcg ONCE PRN IM VAGINAL BLEEDING; Start 07/18/16 at 11:30 Misoprostol (Cytotec) 1,000 mcg ONCE PRN MI VAGINAL BLEEDING; Start 07/18/16 at 11:30 Acetaminophen/ Hydrocodone Bitart ([place] (5/325)) 1 tab Q4H PRN PO PAIN LEVEL 1 -5 Last administered on 08/08/16 13:36; Admin Dose 1 TAB; Start 07/22/16 at 15: 00 Acetaminophen/ Hydrocodone Bitart ([place] (5/325)) 2 tab Q4H PRN PO PAIN LEVEL 6 -10 Last administered on 07/25/16 09:05; Admin Dose 2 TAB; Start 07/22/16 at 15: 00 Ondansetron HCl (Zofran Inj) 4 mg Q6H PRN IV NAUSEA AND/OR VOMITING; Start 07/22 at 15:00 Docusate Sodium (Colace) 100 mg BID PO Last administered on 08/09/16 08:53; Admin Dose 100 MG; Start 07/22/16 at 15:00 Acetaminophen (Tylenol Tab) 650 mg Q4H PRN PO TEMP GREATER THAN 101F OR JONES Last administered on 08/03/16 14:45; Admin Dose 650 MG; Start 07/22/16 at 15:00 Ascorbic Acid (Vitamin C) 1,000 mg BID PO Last administered on 08/09/16 08:52 ; Admin Dose 1,000 MG; Start 07/23/16 at 09:00 Ferrous Sulfate (Ferrous Sulfate (Ec)) 325 mg TID PO Last administered on 08:52; Admin Dose 325 MG; Start 07/23/16 at 09:00 Diazepam (Valium) 5 mg Q4H PRN PO MUSCLE SPASMS Last administered on 07/25/16 09:05; Admin Dose 5 MG; Start 07/22/16 at 15:00 Phenol (Cepastat Lozenge) 1 lozenge PRN PRN MT SORE THROAT; Start 07/22/16 at 15 :00 Diphenhydramine HCl (Benadryl) 50 mg Q6H PRN PO PRURITUS Last administered on 00:34; Admin Dose 50 MG; Start 07/22/16 at 15:00 Naloxone HCl 0.2 mg 0.2 mg Q2M PRN IV RR 8 BREATHS/MIN OR LESS; Start 07/22/16 at 15:00 Sodium Chloride 1,000 ml @ 75 mls/hr [id number] IV Last administered on 03:33; Admin Dose 75 MLS/HR; Start 08/01/16 at 11:00 Imipenem/ Cilastatin Sodium (Primaxin 500 Mg/ 100 ml (Pmx)) 100 ml @ 100 mls/ hr Q8 IVPB Last administered on 08/09/16 05:40; Admin Dose 100 MLS/HR; Start 08/01/16 at 22:00 Ibuprofen (Motrin) 600 mg Q6H PRN PO FEVER GREATER THAN 100.6 Last administered on 08/05/16 21:40; Admin Dose 600 MG; Start 08/03/16 at 11:00 IV Flush (NS 10 ml) 10 ml PRN PRN IV IV PROTOCOL Last administered on 21:45; Admin Dose 10 ML; Start 08/05/16 at 14:00 Hydrochlorothiazide (Hydrochlorothiazide) 25 mg DAILY PO Last administered on 08:53; Admin Dose 25 MG; Start 08/08/16 at 18:30 KADEN ARRIOLA Aug 09, 2016 13:09
== END 2016-08-09 19:00 | disposition still patient (30) | DRG 765 ==
LOC: OBT 19:09 → L-D 19:10 → OBT 22:30 → L-D 22:30 → PP1 07-18 14:10 → REC 07-22 15:32 → ICU 07-22 17:10 → MS1 07-24 14:29
PROVIDERS: ADMIT Obstetrics & Gynecology; ATTEND Hospitalist
PROC: 10D00Z1 Extraction of Products of Conception, Low, Open Approach (ICD-10-PCS; principal; 2016-07-18 10:45)
PROC: 009300Z Drainage of Intracranial Epidural Space with Drainage Device, Open Approach (ICD-10-PCS; 2016-07-22)
PROC: 00C30ZZ Extirpation of Matter from Intracranial Epidural Space, Open Approach (ICD-10-PCS; 2016-07-22)
PROC: B01BYZZ Fluoroscopy of Spinal Cord using Other Contrast (ICD-10-PCS; 2016-07-22)
PROC: 30253N1 (ICD-10-PCS; 2016-07-22)
PROC: 02HV33Z Insertion of Infusion Device into Superior Vena Cava, Percutaneous Approach (ICD-10-PCS; 2016-08-05)
DX: O36.63X0 Maternal care for excessive fetal growth, third trimester, not applicable or unspecified (principal); I62.1 Nontraumatic extradural hemorrhage; A41.51 Sepsis due to Escherichia coli [E. coli]; G95.19 Other vascular myelopathies; N10 Acute pyelonephritis; I10 Essential (primary) hypertension; D62 Acute posthemorrhagic anemia; M48.03 Spinal stenosis, cervicothoracic region; G95.29 Other cord compression; O86.20 Urinary tract infection following delivery, unspecified; B96.5 Pseudomonas (aeruginosa) (mallei) (pseudomallei) as the cause of diseases classified elsewhere; O33.9 Maternal care for disproportion, unspecified; D64.9 Anemia, unspecified; M62.81 Muscle weakness (generalized); M54.2 Cervicalgia; R20.0 Anesthesia of skin; Q27.39 Arteriovenous malformation, other site; Z37.0 Single live birth; Z3A.38 38 weeks gestation of pregnancy
CPT/HCPCS: 36415; 36430; 36569; 36600; 70553; 71010; 72040; 72156; 72157; 74177; 76775; 76815; 76818; 76937; 80048; 80053; 81001; 81003; 82565; 82575; 82803; 83605; 84520; 84560; 85014; 85018; 85025; 85576; 85610; 85730; 86592; 86850; 86900; 86901; 86920; 87040; 87081; 87086; 88304; 88305; 88311; 97110; 97116; 97161; 97164; 97167; 97530; 97535; 99464; A4310; J0290; J0690; J0743; J1100; J1170; J1644; J1885; J2250; J2270; J2274; J2370; J2405; J2543; J2590; J2765; J3010; J3370; J7030; J7042; J7050; J7120; P9016; Q9967